=== PATIENT | female | born 2000 | race Caucasian/White ===

== ENCOUNTER 2020-07-22 07:58 | Outpatient (REF) | payer OTHER, SELFPAY ==
[2020-07-22 15:03] LABS: CT PCR NOT DETECTED (Not Detect.); NG PCR NOT DETECTED (Not Detect.)
[2020-07-23 15:33] LABS: BV Int Neg Control Negative (Negative); BV Int Pos Control Positive (Positive)
== END 2020-07-22 07:59 | disposition home or self-care (01) ==
LOC: HO.LAB 07:58
PROVIDERS: PCP Specialist; Visit Provider Obstetrics & Gynecology
DX: R10.2 Pelvic and perineal pain (principal); N94.12 Deep dyspareunia
CPT/HCPCS: 81025; 87480; 87491; 87510; 87591; 87660; 99203

== ENCOUNTER 2020-07-27 15:04 | Outpatient (REF) | payer OTHER, SELFPAY ==
--- NOTE | 2020-07-27 15:10 | US_ITS ---
EXAMINATION: US PELVIS COMPLETE CLINICAL INFORMATION: Dyspareunia; the last menstrual period was on 07/21/2020. COMPARISON: None. TECHNIQUE: Transabdominal and transvaginal imaging were performed. FINDINGS: The uterus is of normal size and echogenicity measuring 8.4 x 4.5 x 4.3 cm. The uterus is retroverted and retroflexed. A regular, homogeneous endometrium is identified measuring 1.0 cm. FIBROIDS: There is 1 fibroid seen. 1. Location: Upper leftward uterine body. Size: 1.7 x 1.6 x 1.7 cm. Fibroid characteristics: Isoechoic Both ovaries are of normal size and echogenicity. The right ovary measures 2.3 x 1.8 x 2.0 cm for a volume of 8.2 mL. The left ovary measures 2.5 x 1.2 x 1.5 cm for a volume of 2.4 mL. A 1.4 x 1.5 x 1.4 cm dominant simple cyst is seen within the right ovary. There is trace left adnexal free fluid. No adnexal masses seen. US/US pelvic complete IMPRESSION: 1. A small uterine fibroid is seen. 2. A 1.5 cm right ovarian simple cyst is seen. 3. There is trace free fluid in the left adnexal region.
--- NOTE | 2020-07-27 15:10 | US_ITS ---
EXAMINATION: US PELVIS COMPLETE CLINICAL INFORMATION: Dyspareunia; the last menstrual period was on 07/21/2020. COMPARISON: None. TECHNIQUE: Transabdominal and transvaginal imaging were performed. FINDINGS: The uterus is of normal size and echogenicity measuring 8.4 x 4.5 x 4.3 cm. The uterus is retroverted and retroflexed. A regular, homogeneous endometrium is identified measuring 1.0 cm. FIBROIDS: There is 1 fibroid seen. 1. Location: Upper leftward uterine body. Size: 1.7 x 1.6 x 1.7 cm. Fibroid characteristics: Isoechoic Both ovaries are of normal size and echogenicity. The right ovary measures 2.3 x 1.8 x 2.0 cm for a volume of 8.2 mL. The left ovary measures 2.5 x 1.2 x 1.5 cm for a volume of 2.4 mL. A 1.4 x 1.5 x 1.4 cm dominant simple cyst is seen within the right ovary. There is trace left adnexal free fluid. No adnexal masses seen. US/US transvaginal IMPRESSION: 1. A small uterine fibroid is seen. 2. A 1.5 cm right ovarian simple cyst is seen. 3. There is trace free fluid in the left adnexal region.
== END 2020-07-27 15:05 | disposition home or self-care (01) ==
LOC: HO.US 15:04
PROVIDERS: Visit Provider Obstetrics & Gynecology
DX: N94.12 Deep dyspareunia (principal)
CPT/HCPCS: 76830; 76856

== ENCOUNTER 2020-08-18 14:30 | Outpatient (REF) | payer OTHER, SELFPAY | END 2020-08-18 14:31 | disposition home or self-care (01) | LOC: HO.LAB 14:30 | PROVIDERS: PCP Specialist; Visit Provider Internal Medicine | DX: Z20.828 Contact with and (suspected) exposure to other viral communicable diseases (principal) | CPT/HCPCS: C9803; U0003 ==

== ENCOUNTER 2020-08-18 14:59 | Outpatient (REF) | payer OTHER, SELFPAY ==
[2020-08-18 16:14] LABS: Glucose Urine UA NEG (NEG); Leukocyte Esterase Urine NEG (NEG); Nitrite Urine NEG (NEG); PH 5.5 (5.0-8.0); Specific Gravity - Urine >= 1.030 (1.005-1.025); Urine Blood TRACE (NEG); Urine Ketones NEG (NEG); Urine Protein NEG (NEG-TRACE)
[2020-08-18 16:15] LABS: Appearance Urine CLEAR; Color Urine YELLOW
[2020-08-18 16:23] LABS: Bacteria Urine 1+ /LPF; RBC Urine 0-2 /HPF (0); Squamous Epithelial Cell Urine 1+ /LPF; WBC Urine 0 /HPF (0-4)
== END 2020-08-18 15:00 | disposition home or self-care (01) ==
LOC: HO.LAB 14:59
PROVIDERS: PCP Specialist; Visit Provider Obstetrics & Gynecology
DX: N94.12 Deep dyspareunia (principal)
CPT/HCPCS: 81001; 81003

== ENCOUNTER 2020-09-08 14:30 | Outpatient (REF) | payer OTHER, SELFPAY | END 2020-09-08 14:31 | disposition home or self-care (01) | LOC: HO.LAB 14:30 | PROVIDERS: PCP Specialist; Visit Provider Obstetrics & Gynecology | DX: R31.29 Other microscopic hematuria (principal); N93.0 Postcoital and contact bleeding | CPT/HCPCS: 81002; 87086; 88142; 99212 ==

== ENCOUNTER 2020-09-15 14:38 | Outpatient (REF) | payer OTHER, SELFPAY ==
[2020-09-16 09:42] LABS: BV Int Neg Control Negative (Negative); BV Int Pos Control Positive (Positive)
== END 2020-09-15 14:39 | disposition home or self-care (01) ==
LOC: HO.LAB 14:38
PROVIDERS: PCP Specialist; Visit Provider Obstetrics & Gynecology
DX: B37.3 Candidiasis of vulva and vagina (principal)
CPT/HCPCS: 87480; 87510; 87660; 99212

== ENCOUNTER → 2021-02-10 08:52 | Outpatient (BNVA) | payer OTHER, SELFPAY | PROVIDERS: PCP Specialist; Visit Provider Obstetrics & Gynecology | DX: N64.52 Nipple discharge (principal) | CPT/HCPCS: 99212 ==

== ENCOUNTER 2021-02-16 13:57 | Outpatient (REF) | payer OTHER, SELFPAY ==
--- NOTE | ~2021-02-16 | US_ITS ---
EXAMINATION: US DIAGNOSTIC ULTRASOUND BREAST, LEFT CLINICAL INFORMATION: 20-year-old female with one episode milky left nipple discharge, several drops with squeezing. Episode occurred 2-3 weeks ago with no recurrence. No discharge on right. No prior breast imaging. No known family history breast cancer. No palpable abnormality. COMPARISON: None. TECHNIQUE: Ultrasound left breast is targeted to the retroareolar and periareolar region. Grayscale imaging and color Doppler are performed without and with harmonics. FINDINGS: There is no focal suspicious finding. There is no cystic or solid mass, architectural abnormality, duct ectasia, or edema in the soft tissue planes. Results are discussed with the patient at time of visit. US/US breast LT limited IMPRESSION: Normal study. ASSESSMENT: BI-RADS 1: Negative RECOMMENDATION: Patient should be managed based on the clinical impression. If there is unilateral recurrence of nipple discharge, then further assessment with breast MRI without and with gadolinium contrast may be considered. If there is bilateral recurrence of nipple discharge, then endocrine evaluation should be considered.
== END 2021-02-16 13:58 | disposition home or self-care (01) ==
LOC: HO.MAMMO 13:57
PROVIDERS: Visit Provider Obstetrics & Gynecology
DX: N64.52 Nipple discharge (principal)
CPT/HCPCS: 76642

== ENCOUNTER 2021-02-25 08:58 | Emergency (ER) | payer OTHER, SELFPAY ==
--- NOTE | ~2021-02-25 | XR_ITS ---
EXAMINATION: XR CHEST CLINICAL INFORMATION: Cough. COMPARISON: None TECHNIQUE: Frontal view of the chest was obtained. FINDINGS: No significant abnormality is noted involving the heart, lungs, mediastinum, bony thorax or soft tissues. XR/XR chest 1V IMPRESSION: Unremarkable chest examination.
[2021-02-25 09:12] VITALS: BP 130/68; PULSE 89; RESP 16; TEMP 37.4; O2SAT 99; BMI 23.3
[2021-02-25 09:41] LABS: Strep A Nucleic Acid Negative (Negative)
[2021-02-25] MEDS: Acetaminophen 325 MG TABLET 650 MG PO (09:49)
[2021-02-25 10:11] LABS: Influenza A PCR NEGATIVE (Negative); Influenza B PCR NEGATIVE (Negative); Resp Syncy Virus RNA Qual PCR NEGATIVE (Negative); SARS COV2 PCR INHOUSE NEGATIVE (Negative)
--- NOTE | 2021-02-25 10:13 | ED_ITS ---
HPI - URI/Sore Throat General Chief Complaint: Upper Respiratory Symptoms Stated Complaint: FEVER SORE THROAT Time Seen by Provider: 02/25/21 09:10 Source: patient Mode of arrival: ambulatory History of Present Illness HPI Narrative: 20-year-old female with no significant past medical history presenting to the ED complaining of cough, sore throat, myalgias, headache x2 weeks. Admits tested negative for COVID-19 about 2 weeks ago. Also reports fever T-max a 100.4? x2 days. Denies difficulty/inability to swallow or handle secretions, SOB, CP, recent travel, sick contacts, COVID-19 exposure MD elicited complaint: fever, cough and sore throat Related Data Home Medications Medication Instructions Recorded Confirmed minocycline 100 mg capsule 100 mg PO BID 02/10/21 02/10/21 spironolactone 100 mg tablet 100 mg PO DAILY 02/10/21 02/10/21 triamcinolone acetonide 0.1 % 1 appl TOPICAL BID-TID 02/10/21 02/10/21 topical cream Previous Rx's Medication Instructions Recorded clotrimazole-betamethasone 1 1 appl TOPICAL BID 5 Days #45 g 09/15/20 %-0.05 % topical cream terconazole 0.8 % vaginal cream 1 appful VAGINAL BEDTIME 3 Days 09/15/20 #20 g benzonatate [Tessalon Perles] 100 mg PO TID PRN #14 cap 02/25/21 Allergies Allergy/AdvReac Type Severity Reaction Status Date / Time No Known Allergies Allergy Verified 02/10/21 09:16 Review of Systems Review of Systems: Constitutional: + Fever, No Chills ENT/Mouth: + Ear Pain, + Nasal Congestion, No Sinus Pain, No Hoarseness, + sore throat, No Rhinorrhea, No Swallowing Difficulty Cardiovascular: No Chest Pain, No SOB Respiratory: + Cough, + Sputum, No Wheezing Gastrointestinal: No Nausea, No Vomiting, No Diarrhea, No Constipation, No Abdominal pain Musculoskeletal: No joint pain, + Myalgias Skin: No Skin Lesions, No rash Neuro: No Weakness, No Numbness, No Paresthesias Yes all other systems are reviewed and are negative [facility] Past Medical History Attestation statement: The following information was validated with the patient. Medical History (Updated 02/25/21 @ 10:15 by KAMINI Gutiérrez) Acne Social History Social History Alcohol intake: never Advance Directives: No Advance Directives Information Provided: No Patient : No Sexual orientation: Straight/Heterosexual Gender identity: female Physical Exam Vital Signs: Vital Signs: Last Vital Signs Temp 99.4 F 02/25/21 09:12 Pulse 89 02/25/21 09:12 Resp 16 02/25/21 09:12 BP 130/68 02/25/21 09:12 Pulse Ox 99 02/25/21 09:12 Body Mass Index 23.3 Const: General: cooperative, healthy appearing, comfortable and no acute distress Orientation/consciousness: patient oriented x3 Limitations: no limitations HENMT: Other: Bilateral tonsils mildly erythematous and inflamed, no exudates Head: Yes normal to inspection Ears: hearing grossly normal bilaterally, e xternal ears normal and TM's normal bilaterally General nose exam: Normal external nose present and Normal nares present Face and sinus: Yes normal facial exam and Yes face symmetric Mouth: Normal oral and palatal mucosa present Throat: Yes posterior oropharynx normal, Yes uvula midline, No peritonsillar mass and No uvular edema Eyes: General: appearance normal, both eyes and all related structures EOM: EOMs intact bilaterally Neck: Neck: Yes normal visual inspection and Yes no lymphadenopathy Resp: Effort & Inspection: normal respiratory effort Auscultation: clear to auscultation bilaterally, no crackles, no rales and no wheezes Cardio: Rate: regular rate Heart sounds: S1 normal heart sound present and S2 normal heart sound present Skin: Rashes: no rashes Wounds: no wounds Neuro: General: patient oriented x3 Gait exam (Neuro): Normal gait present Extrem: General: Yes normal to inspection Course Course Course Narrative: XR chest 1V IMPRESSION: Unremarkable chest examination -rapid strep negative MDM - URI/Sore Throat MDM Narrative Medical decision making narrative: 20-year-old female with no significant past medical history presenting to the ED complaining of cough, sore throat, myalgias, headache x2 weeks. Also reports fever T-max a 100.4? x2 days. On exam low-grade temp 99.4?, NAD, lungs CTA, mild bilateral tonsillar erythema and swelling without exudates. Concern for viral syndrome/COVID-19. Exam not consistent with strep pharyngitis. Rule out pneumonia Plan: Rapid strep, COVID-19 testing, CXR Differential Diagnosis Differential diagnosis: Likely upper respiratory infection Medical Records Attestation: I reviewed the patient's medical records. Lab Data Attestation: I reviewed the patient's lab results. Labs: Lab Results 02/25/21 Range/Units 09:24 S. pyogenes GrpA AMY Negative (Negative) Discharge Plan Discharge Clinical Impression: Viral infection Patient Disposition: Home, Self-Care Instructions: Viral Syndrome (ED) Additional Instructions: Your chest x-ray and rapid strep were unremarkable. Based on your symptoms and history we have sent a COVID-19. Although your RESULT IS PENDING at this time. Tessalon Perles for cough, take as needed At this time you will be contacted with either NEGATIVE OR POSITIVE results. -Please wait until we contact you for your results. At this time you will be okay for discharge. Please plan for self quarantine for up to 14 days. Do not expose yourself to others. You may not go to work. If testing does come back negative you may return to activities as long as you are no longer having any symptoms for at least 3 days. Please continue to follow cold instructions and wash your hands frequently. You may take Tylenol as directed on the bottle for pain or fever. Patient seen in the emergency department on 03/26/2020 and should be excused from work until negative test results AND until 72 hours without any symptoms AND at least 10 days have passed since symptoms first appeared or since last exposure to COVID-19 positive patient CDC Guidelines for home isolation: - Stay away from others - WEAR A MASK if you are sick AND STAY HOME - Cover your mouth and nose with a tissue when you cough or sneeze. Dispose of tissues in a lined trash can and wash your hands immediately with soap and water for at least 20 seconds. If soap and water are not available, clean hands with alcohol-based hand technical programs manager that contains at least 60% alcohol. - Clean your hands often with soap and water for at least 20 seconds - Avoid touching your eyes, nose and mouth with unwashed hands - Do not share dishes, drinking glasses, cups, eating utensils, towels, or bedding with other people in your home. After using these items, wash them thoroughly with soap and water or put in the legal recruiter. - Clean high-touch surfaces in your isolation area ( sick room and bathroom) every day; let a caregiver clean and disinfect high-touch surfaces in other areas of the home. Clean the area or item with soap and water or another detergent if it is dirty. Then, use a household disinfectant. - Limit contact with pets and animals: If you must care for a pet, wash your hands before and after interacting with them) Prescriptions: New benzonatate [Tessalon Perles] 100 mg capsule 100 mg PO TID PRN (Reason: cough) Qty: 14 RF: 0 No Action terconazole 0.8 % cream 1 appful vaginal BEDTIME 3 Days Qty: 20 RF: 0 clotrimazole-betamethasone 1-0.05 % cream 1 appl topical BID 5 Days Qty: 45 RF: 0 minocycline 100 mg capsule 100 mg PO BID RF: 0 spironolactone 100 mg tablet 100 mg PO DAILY RF: 0 triamcinolone acetonide 0.1 % cream 1 appl topical BID-TID RF: 0 Referrals: Roslyn Moss MD [Primary Care Provider] - 3 days
== END 2021-02-25 10:39 | disposition home or self-care (01) ==
PROVIDERS: Physician Assistant; Emergency Provider Emergency Medicine; PCP Specialist
DX: B34.9 Viral infection, unspecified (principal); Z20.822 Contact with and (suspected) exposure to COVID-19; J02.9 Acute pharyngitis, unspecified; R50.9 Fever, unspecified
CPT/HCPCS: 0241U; 36415; 71045; 87651; 99283

== ENCOUNTER 2021-04-18 14:00 | Outpatient (REF) | payer OTHER, SELFPAY | END 2021-04-18 14:01 | disposition home or self-care (01) | LOC: HO.LAB 14:00 | PROVIDERS: PCP Specialist; Visit Provider Internal Medicine | DX: Z20.822 Contact with and (suspected) exposure to COVID-19 (principal) | CPT/HCPCS: C9803; U0003; U0005 ==

== ENCOUNTER 2021-05-01 12:32 | Emergency (ER) | payer OTHER, SELFPAY ==
--- NOTE | ~2021-05-01 | XR_ITS ---
EXAMINATION: XR CHEST CLINICAL INFORMATION: : Pneumonia. COMPARISON: None TECHNIQUE: Frontal view of the chest was obtained. FINDINGS: The lungs are fairly well-expanded and clear. Heart size and pulmonary vascularity is normal. No gross bony abnormality seen. XR/XR chest 1V IMPRESSION: Unremarkable chest exam.
[2021-05-01 13:00] VITALS: BP 125/77; PULSE 80; RESP 18; TEMP 36.3; O2SAT 99; BMI 23.1
--- NOTE | 2021-05-01 14:27 | ED.URI ---
HPI - URI/Sore Throat General Chief Complaint: Upper Respiratory Symptoms Stated Complaint: runny nose, sore throat, earache Time Seen by Provider: 05/01/21 14:20 Source: patient Mode of arrival: ambulatory Limitations: no limitations History of Present Illness HPI Narrative: Patient presents to ED for URI symptoms. Patient states coughing, chest pain only when she coughs, runny nose, bilateral ear pain, and sore throat. Patient states she recently travel from [place] and is not vaccinated. She denies anyone else at home having similar symptoms. Related Data Home Medications Medication Instructions Recorded Confirmed minocycline 100 mg capsule 100 mg PO BID 02/10/21 02/10/21 spironolactone 100 mg tablet 100 mg PO DAILY 02/10/21 02/10/21 triamcinolone acetonide 0.1 % 1 appl TOPICAL BID-TID 02/10/21 02/10/21 topical cream Previous Rx's Medication Instructions Recorded clotrimazole-betamethasone 1 1 appl TOPICAL BID 5 Days #45 g 09/15/20 %-0.05 % topical cream terconazole 0.8 % vaginal cream 1 appful VAGINAL BEDTIME 3 Days 09/15/20 #20 g benzonatate 100 mg capsule 100 mg PO TID PRN #14 cap 02/25/21 (Tessalon Perles) benzonatate 100 mg capsule 100 mg PO TID PRN #15 cap 05/01/21 (Tessalon Perles) Allergies Allergy/AdvReac Type Severity Reaction Status Date / Time No Known Allergies Allergy Verified 02/10/21 09:16 Review of Systems Review of Systems: Yes all other systems are reviewed and are negative and unobtainable due to endotracheal tube Constitutional: Constitutional: Reports as per HPI and Reports no additional constitutional complaints Eyes: Eyes: Reports as per HPI and Reports no additional eye complaints ENT: Reports system reviewed and no additional complaints, except as documented, Reports as per HPI, Reports otalgia and Reports sore throat Cardiovascular: Cardiovascular: Reports as per HPI, Reports no additional cardiovascular complaints, Denies chest pain at rest, Denies chest pain with activity and Denies dyspnea Respiratory: Respiratory: Reports as per HPI, Reports no additional respiratory complaints, Reports cough, Denies excessive phlegm production, Denies pain on inspiration, Reports pain with cough, Denies dyspnea and Denies wheezing Gastrointestinal: Gastrointestinal: Reports as per HPI and Reports no additional gastrointestinal complaints Genitourinary: Genitourinary: Reports no additional female genitourinary complaints and Reports as per HPI Musculoskeletal: Musculoskeletal: Reports no additional musculoskeletal complaints and Reports as per HPI Neurologic: Reports system reviewed and no additional complaints, except as documented and Reports as per HPI Psychiatric: Psychiatric: Reports no additional psychiatric complaints and Reports as per HPI Allergic/Immunologic: Allergic/Immunologic: Denies wheezing [facility] Past Medical History Medical History (Updated 05/01/21 @ 16:12 by KAMINI Haile) Acne Social History Social History Alcohol intake: never Advance Directives: No Advance Directives Information Provided: Yes Sexual orientation: Straight/Heterosexual Gender identity: female Physical Exam Vital Signs: Vital Signs: Last Vital Signs Temp 98.5 F 05/01/21 16:23 Pulse 56 05/01/21 16:23 Resp 16 05/01/21 16:23 BP 120/75 05/01/21 16:23 Pulse Ox 99 05/01/21 16:23 Body Mass Index 23.1 Const: General: cooperative, healthy appearing, comfortable, no acute distress, well developed, alert, awake and Physically active Orientation/consciousness: patient oriented x3 HENMT: Head: Yes normal to inspection, Yes No palpable skull fracture present, Yes normocephalic and Yes atraumatic Ears: hearing grossly normal bilaterally, external ears normal, TM's normal bilaterally, TM normal on the right, TM normal on the left, EAC's normal, mastoids normal and no periauricular adenopathy Throat: Yes posterior oropharynx normal, Yes tonsils normal and Yes uvula midline Eyes: General: appearance normal, both eyes and all related structures Neck: Neck: Yes normal visual inspection, Yes full ROM, Yes no lymphadenopathy, Yes no meningeal signs, Yes trachea midline, Yes supple and No tender Chest: Chest palpation & inspection: normal inspection of the chest and normal palpation of entire chest wall Resp: Effort & Inspection: normal respiratory effort and able to speak in complete sentences Auscultation: clear to auscultation bilaterally Cardio: Jugular venous distension: no JVD Heart sounds: S1 normal heart sound present and S2 normal heart sound present Skin: General skin exam: no rashes or lesions noted and elasticity normal Neuro: General: patient oriented x3, gait normal, no meningeal signs and CN's II-XI intact bilaterally Cranial nerves: Yes CN's II-XII intact bilaterally Extrem: Other: Lower extremities negative for swelling, pitting edema, or, calf tenderness Psych: Appearance: grossly normal, well kempt and not disheveled Course Course Course Narrative: Patient will be swabbed for COVID have a chest x-ray ordered Reevaluation(s) Reevaluation #1: Strep test came back negative. Chest x-ray normal. Still waiting for COVID results. Patient preferred to be discharged and be called with COVID results Time: 16:10 Reevaluation #2: Patient COVID swab came back negative. Patient's cell phone number was called and could not be reached voicemail was left with results to her personal cell phone. Time: 17:06 MDM - URI/Sore Throat Lab Data Labs: Lab Results 05/01/21 05/01/21 Range/Units 14:32 14:32 Coronavirus (PCR) NEGATIVE (Negative) Influenza Type A (PCR) NEGATIVE (Negative) Influenza Type B (PCR) NEGATIVE (Negative) RSV RNA Qual (PCR) NEGATIVE (Negative) S. pyogenes GrpA AMY Negative (Negative) Discharge Plan Discharge Clinical Impression: Acute viral syndrome, Upper respiratory infection Patient Disposition: Home, Self-Care Instructions: Upper Respiratory Infection (ED), Viral Syndrome (ED) Additional Instructions: Strep test came back negative. Chest x-ray came back normal. COVID results still pending. You will be called with results. Return to the ED immediately for any chest pain, shortness of breath, dizziness, weakness, coughing up blood, swelling of lower extremities, or any other concerning symptoms. Please follow up with PCP. Prescriptions: New benzonatate [Tessalon Perles] 100 mg capsule 100 mg PO TID PRN (Reason: cough) Qty: 15 RF: 0 No Action benzonatate [Tessalon Perles] 100 mg capsule 100 mg PO TID PRN (Reason: cough) Qty: 14 RF: 0 terconazole 0.8 % cream 1 appful vaginal BEDTIME 3 Days Qty: 20 RF: 0 clotrimazole-betamethasone 1-0.05 % cream 1 appl topical BID 5 Days Qty: 45 RF: 0 minocycline 100 mg capsule 100 mg PO BID RF: 0 spironolactone 100 mg tablet 100 mg PO DAILY RF: 0 triamcinolone acetonide 0.1 % cream 1 appl topical BID-TID RF: 0 Stand Alone Forms: Work/School Release Interventions: ED Discharge Assessment Last Done: 05/01/21 16:33 Discharge Date/Time: 05/01/21 16:34 Print Language: Vietnamese
[2021-05-01 14:54] LABS: Strep A Nucleic Acid Negative (Negative)
[2021-05-01 15:41] LABS: Influenza A PCR NEGATIVE (Negative); Influenza B PCR NEGATIVE (Negative); Resp Syncy Virus RNA Qual PCR NEGATIVE (Negative); SARS COV2 PCR INHOUSE NEGATIVE (Negative)
[2021-05-01 16:23] VITALS: BP 120/75; PULSE 56; RESP 16; TEMP 36.9; O2SAT 99
== END 2021-05-01 16:34 | disposition home or self-care (01) ==
PROVIDERS: Physician Assistant; Emergency Provider Internal Medicine; PCP Specialist
DX: B34.9 Viral infection, unspecified (principal); J06.9 Acute upper respiratory infection, unspecified; R05 Cough; R07.9 Chest pain, unspecified; H92.03 Otalgia, bilateral; Z20.822 Contact with and (suspected) exposure to COVID-19; Z79.899 Other long term (current) drug therapy
CPT/HCPCS: 0241U; 36415; 71045; 87651; 99284

== ENCOUNTER 2022-07-11 09:37 | Emergency (ER) | payer OTHER, SELFPAY ==
[2022-07-11 09:46] VITALS: BP 138/74; PULSE 99; RESP 18; O2SAT 97; BMI 24.0
--- OUTSIDE RECORDS SUMMARY | 2022-07-11 14:11 | XMS_ITS | Continuity of Care Document ---
:2000 Author Organization [facility] Address [address] [place] [id number]- Care Team Providers Name Role Phone Roslyn Moss MD Primary Care Physician Encounter [facility] [place] Date(s): 02/26/21 - 02/26/[address] [address]- Encounter Diagnosis Suppurative parotitis (Final) - 02/26/21 Discharge Disposition: A-D/C Home Attending Physician: Torin Nelson MD Admitting Physician: Torin Nelson MD Referring Physician: Not on Staff, Referring MD Allergies, Adverse Reactions, Alerts No Known Medication Allergies Medications clindamycin 150 mg oral capsule 3 capsule = 450 mg, By Mouth, Every 8 hours, for 10 days, # 90 capsule, 0 Refills, Acute 03/08/21 16:10:00 EDT, 02/26/21 16:10:00 EDT, [id number], Partial fill upon patient request if the prescription is for a schedule II opi... Start Date: 02/26/21 Stop Date: 03/08/21 Status: OrderedMinocycline 0 Refills, Maintenance, 02/26/21 12:07:00 EDT, Partial fill upon patient request if the prescriptionis for a schedule II opioid drug. Start Date: 02/26/21 Status: OrderedSpironolactone Tablet By Mouth, Refills 0, Maintenance, 02/26/21 12:06:00 EDT, Partial fill upon patient request if the prescription is for a schedule II opioid drug. Start Date: 02/26/21 Status: Ordered Results Orders for Microbiology Reports Name Date Group A Strep Screen and Culture 02/26/21 Microbiology Reports TEST:Group A Strep Screen and Culture STATUS:Unauthenticated BODY SITE: SOURCE:THROAT COLLECTED DATE/TIME:02/26/21 1:30 PMGroup A Strep Screen and Culture SPECIMEN DESCRIPTION : THROAT SWAB SPECIAL REQUESTS : NONE DIRECT EXAM : RAPID GROUP A RESULT IS NEGATIVE, REFER TO CULTURE RESULT. REPORT STATUS : PRELIMINARY REPORT Vital Signs Most recent to oldest 1 2 3 [Reference Range]: Height 166 cm 166 cm (02/26/21 4:19 PM) (02/26/21 12:02 PM) Oxygen Saturation [94-100 %] 100 % 100 % 100 % (02/26/21 4:19 PM) (02/26/21 12:02 PM) (02/26/21 12 :00 PM) Pulse Rate [55-90 bpm] 74 bpm 102 bpm 112 bpm (02/26/21 4:19 PM) *H* *H* (02/26/21 12:02 PM) (02/26/21 12:0 0 PM) Blood Pressure [90-138/55-84 114/59 mm Hg 122/74 mm Hg mm Hg] (02/26/21 4:19 PM) (02/26/21 12:02 PM) Respiratory Rate [16-30 16 br/min 20 br/min br/min] (02/26/21 4:19 PM) (02/26/21 12:02 PM) Temperature [96.8-100.4 97.9 DegF 99.7 DegF DegF] (02/26/21 4:19 PM) (02/26/21 12:02 PM) Mode of Delivery (Oxygen) Room air Room air Room a ir (02/26/21 4:19 PM) (02/26/21 12:02 PM) (02/26/21 12 :00 PM) Blood pressure sites Arm, left (02/26/21 12:02 PM) Temperature Route Oral Oral (02/26/21 4:19 PM) (02/26/21 12:02 PM)
--- OUTSIDE RECORDS SUMMARY | 2022-07-11 14:11 | XMS_ITS | Continuity of Care Document ---
:2000 Author Organization [facility] Address [address] [place] [address]- Care Team Providers Name Role Phone Isa QURESHI, Roslyn Singh Primary Care Physician Encounter [facility] Date(s): 12/27/19 - 01/06/20 [facility] [address] [place] [address]- [facility] Attending Physician: Susan Dunn Admitting Physician: Susan Dunn Referring Physician: Admtr, Ar8 Allergies, Adverse Reactions, Alerts No Known Medication Allergies
--- OUTSIDE RECORDS SUMMARY | 2022-07-11 14:11 | XMS_ITS | Continuity of Care Document ---
:2000 Author Organization [facility] Address [address] [place] [address]- Care Team Providers Name Role Phone Roslyn Moss MD Primary Care Physician Encounter [facility] [place] Date(s): 12/27/19 - 01/03/20 [facility] [address] [place] [address]- [facility] Attending Physician: Zoraida Patel MD Referring Physician: Roslyn Moss MD Allergies, Adverse Reactions, Alerts No Known Medication Allergies Medications amoxicillin 500 mg oral capsule 1 capsule = 500 mg, By Mouth, 2 times a day, for 10 days, for strep throat, # 20 capsule, 0 Refills,Acute 01/06/20 10:18:00 EDT, 12/27/19 10:18:00 EDT, Capsule, [id number], 162.56, cm, 12/27/19 9:59:00 EDT, Height, 68.3, kg, 12/27/19... Start Date: 12/27/19 Stop Date: 01/06/20 Status: Ordered Vital Signs Most recent to oldest [Reference Range]: 1 Height 162.56 cm (12/27/19 9:59 AM) Weight 68.3 kg (12/27/19 9:59 AM) Oxygen Saturation [94-100 %] 99 % (12/27/19 9:59 AM) Pulse Rate [55-90 bpm] 82 bpm (12/27/19 9:59 AM) Body Mass Index [18.5-24.99] 25.85 *H* (12/27/19 9:59 AM) Blood Pressure [90-138/55-84 mm Hg] 123/70 mm Hg (12/27/19 9:59 AM) Respiratory Rate [16-30 br/min] 18 br/min (12/27/19 9:59 AM) Temperature [96.8-100.4 DegF] 98.2 DegF (12/27/19 9:59 AM) Mode of Delivery (Oxygen) Room air (12/27/19 9:59 AM) Blood pressure sites Arm, left (12/27/19 9:59 AM) Temperature Route Oral (12/27/19 9:59 AM) Dry Weight 68.3 kg (12/27/19 9:59 AM) Weight Obtained Via Standing scale (12/27/19 9:59 AM) Dry Weight Obtained Via Standing scale (12/27/19 9:59 AM)
--- OUTSIDE RECORDS SUMMARY | 2022-07-11 14:11 | XMS_ITS | Continuity of Care Document ---
:2000 Author Organization [facility] Address [address] [place] [id number]- Care Team Providers Name Role Phone Roslyn Moss MD Primary Care Physician Encounter [facility] Date(s): 10/13/19 - 10/20/[address] [address]- [facility] Attending Physician: Roslyn Moss MD Allergies, Adverse Reactions, Alerts No Known Medication Allergies
== END 2022-07-11 14:49 | disposition left against medical advice (07) ==
PROVIDERS: Emergency Provider Emergency Medicine
DX: R05.9 Cough, unspecified (principal)
CPT/HCPCS: 99281

== ENCOUNTER 2022-12-17 07:28 | Emergency (ER) | payer OTHER, SELFPAY ==
--- NOTE | ~2022-12-17 | XR_ITS ---
EXAMINATION: XR WRIST AND HAND, RIGHT para CLINICAL INFORMATION: Swelling and pain COMPARISON: None available. TECHNIQUE: 4 views of the right wrist and hand including scaphoid view. FINDINGS: RIGHT WRIST AND HAND: There is a transverse fracture at the base of the third metacarpal. Suspect similar transverse fracture at the base of the fourth metacarpal. Suspect slightly displaced fracture at the base of the second metacarpal. The carpometacarpal joints are preserved. The carpal bones including the scaphoid are intact. XR/XR hand wrist RT IMPRESSION: 1. Fracture of the base of the third metacarpal. 2. Suspect associated fractures at the base of the second and fourth metacarpals.
[2022-12-17 07:37] VITALS: BP 133/84; PULSE 84; RESP 16; TEMP 36.6; O2SAT 98
[2022-12-17 07:50] VITALS: BP 142/88; PULSE 88; RESP 22; TEMP 37; O2SAT 98
[2022-12-17] MEDS: Ibuprofen 600 MG TABLET PO (07:58)
--- NOTE | 2022-12-17 08:00 | ED.EXTPRO ---
HPI - Extremity Problem General Chief complaint: Extremity Injury, Upper Stated complaint: R wrist inj 12/16/22 Time Seen by Provider: 12/17/22 07:50 Source: patient and family Mode of arrival: ambulatory Limitations: no limitations History of Present Illness HPI Narrative: 22-year-old female came in for evaluation of left hand/wrist pain. Patient was drinking alcohol last night woke up this morning with a severe pain in the left hand and wrist, patient do not recall having a fight or trauma to the right hand right wrist. Patient is a left-handed. No headache, no neck pain, no CP, no SOB, no abdominal pain, no other extremities pain. Related Data Home Medications Medication Instructions Recorded Confirmed minocycline 100 mg capsule 100 mg PO BID 02/10/21 02/10/21 spironolactone 100 mg tablet 100 mg PO DAILY 02/10/21 02/10/21 triamcinolone acetonide 0.1 % 1 appl topical BID-TID 02/10/21 02/10/21 topical cream Previous Rx's Medication Instructions Recorded clotrimazole-betamethasone 1 1 appl topical BID 5 days #45 grams 09/15/20 %-0.05 % topical cream terconazole 0.8 % vaginal cream 1 appful vaginal BEDTIME 3 days 09/15/20 #20 grams benzonatate 100 mg capsule 100 mg PO TID PRN cough #14 caps 02/25/21 (Tessalon Perles) benzonatate 100 mg capsule 100 mg PO TID PRN cough #15 caps 05/01/21 (Tessalon Perles) Allergies Allergy/AdvReac Type Severity Reaction Status Date / Time No Known Allergies Allergy Verified 02/10/21 09:16 Review of Systems Review of Systems: All other systems are reviewed and are negative Constitutional: Reports as per HPI and Reports no additional constitutional complaints Eyes: Reports as per HPI and Reports no additional eye complaints Reports system reviewed and no additional complaints, except as documented Cardiovascular: Reports as per HPI and Reports no additional cardiovascular complaints Respiratory: Reports as per HPI and Reports no additional respiratory complaints Gastrointestinal: Reports as per HPI and Reports no additional gastrointestinal complaints Genitourinary: Reports no additional female genitourinary complaints Musculoskeletal: Reports no additional musculoskeletal complaints Skin/Breast: Reports system reviewed and no additional complaints, except as docu Psychiatric: Reports no additional psychiatric complaints Endocrine: Reports no additional endocrine complaints Hematologic/Lymphatic: Reports no additional hematologic/lymphatic complaints Allergic/Immunologic: Reports no additional allergic/immunologic complaints Reports system reviewed and no additional complaints, except as documented and Reports Abnormal speech present [facility] Past Medical History Medical History Acne Social History Social History Alcohol intake: current Smoked in Last 30 Days: No Substance Use Type: Marijuana Substance Use Frequency: Daily Advance Directives: No Advance Directives Information Provided: No Sexual orientation: Straight/Heterosexual Gender identity: Female Physical Exam Vital Signs: Vital Signs: Last Vital Signs Temp 98.6 F 12/17/22 07:50 Pulse 88 12/17/22 07:50 Resp 22 H 12/17/22 07:50 BP 142/88 H 12/17/22 07:50 Pulse Ox 98 12/17/22 07:50 O2 Del Method 12/17/22 07:50 BMI result Body Mass Index 30.0 Vital signs have been reviewed as appeared to be correct. Blood pressure normal. Heart rate normal. Respiration rate normal. Temperature normal. Oxygen saturation normal. Appearance: Alert. Oriented X3. No acute distress. Head: Normal external exam. Normocephalic. Atraumatic. No Rosario signs noted. No raccoon eyes noted Eyes: PERRLA. EOMI. Conjunctiva and sclera normal. Eyelids normal. ENT: TM's Normal. Pharynx normal. Uvula midline. Moist mucous membranes. No trismus noted. No drooling noted. No muffled voice noted. Neck: Normal inspection. Neck supple. FROM. No adenopathy. Thyroid Normal. No meningeal signs. No neck mass noted. CVS: Normal heart rate and rhythm. Heart sound normal. No murmurs noted. Pulses normal throughout. Respiratory: No respiratory distress. Painless inspiration. Breath sounds normal. No wheezes/rales/rhonchi noted. Chest nontender. No accessory muscle usage noted or decreased air movement noted. Abdomen: Soft and nontender. Bowel sounds normal in all 4 quadrants. No distention noted. No organomegaly noted. No visible injury noted. Back: No CVA tenderness. Full range of motion noted. Skin: Skin warm and dry. Normal skin color. Normal skin turgor. No rashes/lesions/lacerations noted. Extremities: Left hand/wrist exam: Tender to touch on the dorsum of the left hand, no step-off, no deformity plan. Neuro: Oriented X 3. Cranial nerve exam: II-XII are grossly intact No motor deficit. No sensory deficit. Reflexes normal. Course Course Course Narrative: Right metacarpal closed fracture, will splint, ibuprofen, ice, follow-up with hand surgery. Medications Administered Discontinued Medications Generic Name Dose Route Start Last Admin Trade Name Freq PRN Reason Stop Dose Admin Ibuprofen 600 mg 12/17/22 07:55 12/17/22 07:58 Ibuprofen 600 Mg Tablet PO 12/17/22 07:56 600 mg ONCE ONE Administration Medical Decision Making Differential Diagnosis Differential Diagnoses: The differential diagnosis associated with the presentation includes (Right hand fracture, right hand contusion, right hand injury.) Independent Interpretation I performed an independent interpretation of an: Plain X-Ray (Right hand/wrist. Right 3rd metacarpal bone fracture.) Radiology Impression Discussion of test interpretation with radiology: I have reviewed the radiologist's reading. Discharge Plan Discharge Clinical Impression: Fracture of metacarpal, Hand fracture, right Patient Disposition: Home, Self-Care Instructions: Hand Fracture (ED) Additional Instructions: Take ibuprofen 200 mg tablet ([id number]) every 6 hours if needed for pain. Prescriptions: No Action benzonatate [Tessalon Perles] 100 mg capsule 100 mg PO TID PRN (Reason: cough) Qty: 14 0RF benzonatate [Tessalon Perles] 100 mg capsule 100 mg PO TID PRN (Reason: cough) Qty: 15 0RF terconazole 0.8 % cream 1 appful vaginal BEDTIME 3 Days Qty: 20 0RF clotrimazole-betamethasone 1-0.05 % cream 1 appl topical BID 5 Days Qty: 45 0RF minocycline 100 mg capsule 100 mg PO BID spironolactone 100 mg tablet 100 mg PO DAILY triamcinolone acetonide 0.1 % cream 1 appl topical BID-TID Referrals: Farhad Miller MD [Physician] - Stand Alone Forms: Work/School Release
== END 2022-12-17 09:29 | disposition home or self-care (01) ==
PROVIDERS: Emergency Provider Emergency Medicine
DX: S62.602A Fracture of unspecified phalanx of right middle finger, initial encounter for closed fracture (principal); Y04.2XXA Assault by strike against or bumped into by another person, initial encounter; Y93.9 Activity, unspecified; Y92.9 Unspecified place or not applicable; Y99.9 Unspecified external cause status; Z79.899 Other long term (current) drug therapy
CPT/HCPCS: 29130; 73110; 73130; 99284

== ENCOUNTER → 2022-12-22 13:15 | Outpatient (BNVA) | payer OTHER, SELFPAY | PROVIDERS: Visit Provider Physician Assistant | DX: S62.312A Displaced fracture of base of third metacarpal bone, right hand, initial encounter for closed fracture (principal) | CPT/HCPCS: 99202 ==

== ENCOUNTER 2023-01-24 09:06 | Outpatient (REF) | payer OTHER, SELFPAY | END 2023-01-24 09:07 | disposition home or self-care (01) | LOC: HO.HOSX 09:06 | PROVIDERS: Visit Provider Physician Assistant | DX: Z13.89 Encounter for screening for other disorder (principal) ==

== ENCOUNTER 2024-07-22 14:53 | Outpatient (REF) | payer OTHER, SELFPAY ==
[2024-07-22 16:03] LABS: MANUAL DIFF FLAG NO
[2024-07-22 16:58] LABS: Basophils Absolute Auto 0.1 X10*3/uL (0.0-0.2); Basophils Percent Auto 0.6 % (0-2); Eosinophils Absolute Auto 0.2 X10*3/uL (0.0-0.4); Eosinophils Percent Auto 1.9 % (0-4); Hematocrit 41.6 % (37.0-47.0); Hemoglobin 14.3 g/dl (12.0-16.0); Imm Gran Abs Auto 0.04 X10*3/uL (0.00-0.03); Imm Gran Pct Auto 0.4 % (0.0-0.4); Lymphocytes Absolute Auto 1.6 X10*3/uL (1.2-4.9); Lymphocytes Percent Auto 17.5 % (20-40); Mean Corpuscular HGB Conc 34.4 g/dl (31.0-35.0); Mean Corpuscular Hemoglobin 31.2 pg (27.0-33.0); Mean Corpuscular Volume 90.8 fL (80.0-98.0); Mean Platelet Volume 9.2 fL (9.4-12.3); Monocytes Absolute Auto 0.5 X10*3/uL (0.1-1.2); Monocytes Percent Auto 5.3 % (2-11); Neutrophils Absolute Auto 6.8 x10*3/uL (2.0-8.3); Neutrophils Percent Auto 74.3 % (45-73); Platelet Count 369 X10*3/uL (160-400); Red Blood Count 4.58 X10*6/uL (4.20-5.50); White Blood Count 9.1 X10*3/uL (4.8-10.8)
[2024-07-22 17:33] LABS: Alanine Aminotransferase 11 U/L (0-31); Albumin Level 4.3 g/dL (3.5-5.0); Alkaline Phosphatase 65 U/L (39-117); Anion Gap 12 (12-20); Aspartate Amino Transferase 18 U/L (5-31); Bilirubin Total 0.3 mg/dL (0.0-1.0); Blood Urea Nitrogen 9 mg/dL (9-16); Calcium 9.5 mg/dL (8.4-10.2); Carbon Dioxide 26 mmol/L (22-29); Chloride 106 mmol/L (96-108); Estimated Glomerular Filt Rate > 60; Glucose Random 86 mg/dL (60-115); Potassium 3.6 mmol/L (3.3-5.1); Sodium 140 mmol/L (135-145); Total Protein 7.4 g/dL (6.5-8.0)
[2024-07-22 17:40] LABS: Free T4 (Free Thyroxine) 1.09 ng/dL (0.71-1.85); TSH reflex Free T4 1.37 uIU/mL (0.32-4.0)
[2024-07-22 17:52] LABS: Folate 7.9 ng/mL (> or = 4.0); Vitamin B12 394 pg/mL (200-900)
[2024-07-23 10:26] LABS: HBS Num1 0.52 mIU/mL (0-7.99); HBsAGNum1 0.37 S/CO (0.00-0.99); HIV AB/AG Nonreactive (Nonreactive); HIV Num 1 0.06 S/CO (0.00-0.99); Hepatitis B Core Antibody Nonreactive (Nonreactive); Hepatitis B Surface Antigen Negative (Negative); ~HepC Num1 0.11 S/CO (0.00-0.79); ~Hepatitis B Surface Antibody NONREACTIVE (Nonreactive); ~Hepatitis C Antibody Nonreactive (Nonreactive)
[2024-07-23 12:17] LABS: CT PCR NOT DETECTED (Not Detect.); NG PCR NOT DETECTED (Not Detect.)
[2024-07-24 06:08] LABS: Prolactin 17.3 ng/mL
[2024-07-27 16:53] LABS: Vitamin D 25-OH, D2 <4 ng/mL; Vitamin D 25-OH, D3 10 ng/mL; Vitamin D 25-OH, Total 10 ng/mL (30-100)
== END 2024-07-22 14:54 | disposition home or self-care (01) ==
LOC: HO.LAB 14:53
DX: Z00.00 Encounter for general adult medical examination without abnormal findings (principal); N64.52 Nipple discharge; L29.9 Pruritus, unspecified; Z11.3 Encounter for screening for infections with a predominantly sexual mode of transmission; Z12.4 Encounter for screening for malignant neoplasm of cervix
CPT/HCPCS: 80053; 82306; 82607; 82746; 84146; 84439; 84443; 85025; 86704; 86706; 86803; 87340; 87389; 87491; 87591; 96127; 99385

== ENCOUNTER 2024-07-22 14:53 | Outpatient (AMB) | payer OTHER, SELFPAY ==
[2024-07-22 14:54] VITALS: BP 100/60; PULSE 63; O2SAT 98; BMI 29.2
--- NOTE | 2024-07-22 14:54 | MHC.PC.OV ---
Vital Signs 07/22/24 14:54 Height 5 ft 4 in Weight 170 lb BMI 29.2 BP 100/60 Blood Pressure Location Lt brachial Position Sitting Pulse 63 Pulse Source Pulse Oximeter Pulse Oximetry (%) 98 Oxygen Delivery Method Room Air Intake Visit Reasons: annual exam/ establish care Banking Services Advisor Required: No Allergies No Known Allergies Allergy (Verified 07/22/24 15:11) Medication List - Last Reconciled 07/22/24 by Anita Kingston PA-C ciprofloxacin-dexamethasone 0.3-0.1 % 0 drps otic (ears) Tobacco use date assessed: 07/22/24 Dental Screening Dental Screen Date: 07/22/24 Did you have a dental visit in the last 12 months?: Yes Did you have a dental problem in the last 6 months where you did not have access to dental care?: No Was dental information given to patient?: Patient has dentist HPI annual exam/ establish care HPI Details 24-year-old female coming to the office for the 1st time. Patient was previously seeing Dr. Preston for Pap smears but has not seen him in several years. She was also being seen for left-sided nipple discharge and had no follow up after her initial ultrasound was negative. She has not had this complaint in over a year. She also mentioned having itchiness on the outside of the ears and occasional pain. [facility] Medical History Acne Social History Alcohol intake: current Patient Tobacco Use Status: Never used Tobacco e-Cigarette/Vaping Use: Currently Using Substance Use Type: Marijuana service: No Current occupational status: employed Current occupation: left hand Sexual orientation: Straight/Heterosexual Gender identity: Female Cognitive needs: No Hearing needs: No Vision needs: No Female Reproductive History Menstrual Age of Menarche: 12 control method: none Total pregnancies: 0 History of abnormal pap smear: No Questionnaire PHQ-9 Over the last 2 weeks, how often have you been bothered by any of the following problems? 1. Little interest or pleasure in doing things: not at all 2. Feeling down, depressed, or hopeless: not at all 3. Trouble falling or staying asleep, or sleeping too much: not at all 4. Feeling tired or having little energy: not at all 5. Poor appetite or overeating: not at all 6. Feeling bad about yourself - or that you are a failure or have let yourself or your family down: not at all 7. Trouble concentrating on things, such as reading the newspaper or watching television: not at all 8. Moving or speaking so slowly that other people could have noticed. Or the opposite - being so fidgety or restless that you have been moving around a lot more than usual: not at all 9. Thoughts that you would be better off or of hurting yourself in some way: not at all Total score: 0 Depression Screening Interpretation: Negative Depression Screening Done: Yes 09861 - PHQ-9 Billing: Yes Source: Developed by Drs. Sohail Cunningham, Jennie Armendariz, Juice Blanco and colleagues, with an educational gopal from [employer]. Thrive Questionnaire Date Thrive assessed: 07/22/24 I am a: Patient What is your living situation today?: I have a steady place to live Within the past 12 months, did the food you bought not last and you didn't have the money to get more?: I choose not to answer this question Within the past 12 months, did you worry whether your food would run out before you got money to buy more?: I choose not to answer this question Do you have trouble paying for medicines?: No Do you have trouble getting transportation to medical appointments?: No Do you have trouble paying your heating and electricity bill?: I choose not to answer this question Do you have trouble taking care of your child, family member or friend?: No Do you have trouble with day-to-day activities such as bathing, preparing meals, shopping, managing finances, etc.?: No Are you currently unemployed and looking for a job?: No Are you interested in more education?: No Please select the resources that you would like help with: None Currently or been in a relationship where the following occur: No concerns reported THRIVE Score: 0 AUDIT C Alcohol Use Questionnaire (AUDIT-C) 1. How often do you have a drink containing alcohol?: Never 3. How often do you have six or more drinks on one occasion?: Never Total Score: 0 MICHELLE-7 AMB Questionnaire MICHELLE-7 Date MICHELLE - 7 assessed: 07/22/24 Feeling nervous, anxious, or on edge: 0 = Not at all Not being able to stop or control worryin = Not at all Worrying too much about different things: 0 = Not at all Trouble relaxin = Not at all Being so restless that it is hard to sit still: 0 = Not at all Becoming easily annoyed or irritable: 0 = Not at all Feeling afraid as if something awful might happen: 0 = Not at all Total MICHELLE-7 score (0-4 normal; 5-9 mild; 10-14 moderate; 15-21 severe): 0 Source: Developed by Drs. Sohail Cunningham, Jennie Armendariz, Juice Blanco and colleagues, with an educational gopal from [employer]. MICHELLE-7 Assessment Billing MICHELLE-7 Assessment Tool: MICHELLE-7 Assessment 37649 Review of Systems Const Denies body aches, Denies fatigue, Denies fever(s), Denies frequent falls, Denies headache(s) and Denies weakness Eyes Reports no additional complaints and Denies change in vision ENT Details: Itchy ears Denies dysphagia, Denies dizziness, Denies facial pain, Denies headache(s), Denies nasal congestion and Denies odynophagia Card Denies chest pain, Denies syncope, Denies irregular heart rhythm, Denies leg edema, Denies lightheadedness and Denies dyspnea Resp Denies cough and Denies dyspnea GI Denies constipation, Denies dysphagia, Denies dyspepsia, Denies diarrhea, Denies nausea, Denies odynophagia and Denies vomiting Denies urinary frequency, Denies dysuria, Denies urinary hesitancy and Denies urinary urgency Musc Denies back pain and Denies myalgias Skin/Breast Reports system reviewed and no additional complaints, except as documented Neuro Denies dizziness, Denies syncope, Denies frequent falls, Denies headache(s) and Denies weakness Psych Reports no additional complaints Endo Denies fatigue Physical exam (Primary Care) Vital Signs: Last Vital Signs Pulse 63 07/22/24 14:54 BP 100/60 07/22/24 14:54 Pulse Ox 98 07/22/24 14:54 Oxygen Delivery Method Room Air 07/22/24 14:54 BMI result Body Mass Index 29.2 BMI Assessment/Plan discussion: High BMI High, discussed plan: lifestyle, dietary and physical activity Tobacco/Smoking Status: Tobacco use Status Tobacco use date assessed 07/22/24 07/22/24 14:55 Patient Tobacco Use Status Never used Tobacco 07/22/24 14:55 e-Cigarette/Vaping Use Currently Using 07/22/24 15:01 PHQ-9: PHQ-9 Score PHQ-9: Total score 0 07/22/24 16:12 Depression Screening Interpretation: Negative Thrive Assessment: Date of Thrive Assessment Date Thrive assessed 07/22/24 07/22/24 14:55 Currently or been in a relationship where the following occur: No concerns reported Const General: cooperative, healthy appearing, comfortable and no acute distress Orientation/consciousness: patient oriented x3 HENMT Other: Dry flaky skin in bilateral ear canals. No tenderness to mastoid or pinna bilaterally Head: Yes normocephalic Ears: hearing grossly normal bilaterally General nose exam: Normal external nose present Face and sinus: Yes normal facial exam and Yes sinuses nontender Mouth: Normal oral and palatal mucosa present and tongue normal Throat: Yes posterior oropharynx normal Eyes General: appearance normal, both eyes and all related structures Conjunctivae: conjunctivae normal Pupils: Equal, round and reactive pupils present EOM: EOMs intact bilaterally and No Nystagmus present Neck Neck: Yes full ROM and Yes no lymphadenopathy Chest Chest palpation & inspection: normal inspection of the chest Resp Effort & Inspection: normal respiratory effort Auscultation: clear to auscultation bilaterally, no crackles, no rales, no rhonchi and no wheezes Cardio Rate: regular rate Rhythm: regular rhythm Peripheral pulses: radial pulses present and dorsalis pedis present GI Inspection: Yes normal to inspection and No Abdominal wall edema Palpation (GI): Soft to palpation, not firm and nontender Auscultation: normal bowel sounds Rectal Exam - Female: deferred General: Yes no CVA tenderness Back/Spine/Pelvis Back: no CVA tenderness Skin General skin exam: no rashes or lesions noted Neuro General: patient oriented x3 Cranial nerves: Yes Equal, round and reactive pupils present, Yes Midline tongue present, Yes Ability to bilaterally elevate shoulders present and No Nystagmus present Gait exam (Neuro): Normal gait present Extrem General: Yes normal to inspection, Yes full ROM and No edema Psych Speech and movement: Normal speech and movement present Affect: normal affect Attitude: cooperative Insight: Good insight present (Psych) Judgement: Good judgement present (Psych) Coding Level of Care Code New Pt Prev Care 18-39yr([id number] Diagnoses Cervical cancer screening Z12.4 Nipple discharge N64.52 Ear itch L29.9 Annual physical exam Z00.00 Additional Codes MICHELLE-7 Assessment Billing - MICHELLE-7 Assessment Tool: MICHELLE-7 Assessment [id number] ([id number]) Assessment & Plan Assessment & Plan (1) Cervical cancer screening: Code(s): Z12.4 - Encounter for screening for malignant neoplasm of cervix Category: Medical Plan: Referral placed to gynecology for annual exams. (2) Nipple discharge: Comment: Left breast Code(s): N64.52 - Nipple discharge Category: Medical Plan: No recurrence in over a year advised patient to continue to monitor her symptoms and follow up as needed for this concern. (3) Ear itch: Code(s): L29.9 - Pruritus, unspecified Category: Medical Plan: On exam patient has mild wax in bilateral ears. May use Debrox drops as needed for wax removal and use topical emollients such as Aquaphor or Vaseline on the outside of the ears for dryness. (4) Annual physical exam: Code(s): Z00.00 - Encounter for general adult medical examination without abnormal findings Category: Medical Plan: Patient is up-to-date on all recommended vaccinations for her age and is not up-to-date on Pap smears referral placed today. Ordered for updated blood work and follow up yearly or sooner if new problems arise. Plan This note was constructed using voice recognition software. While every effort has been made to ensure accuracy and rapier insertion loom fixer, still areas may have been included sometimes these areas may affect the content or meeting of the given symptoms. Total time spent caring for the patient today was 30 minutes. This includes time spent before the visit reviewing the chart, time spent during the visit, and time spent after the visit and documentation. Orders: Orders CT NG by PCR Today Z00.00 - Encounter for general adult medical examination without abnormal findings, Z11.3 - Encounter for screening for infections with a predominantly sexual mode of transmission Complete Blood Count Auto Diff Today Z00.00 - Encounter for general adult medical examination without abnormal findings TSH reflex Free T4 Today Z00.00 - Encounter for general adult medical examination without abnormal findings Vitamin D 25-OH (D2 and D3) Today Z00.00 - Encounter for general adult medical examination without abnormal findings Free T4 (Free Thyroxine) Today Z00.00 - Encounter for general adult medical examination without abnormal findings HIV Ab/Ag Today Z11.3 - Encounter for screening for infections with a predominantly sexual mode of transmission Hepatitis B,C Profile Today Z11.3 - Encounter for screening for infections with a predominantly sexual mode of transmission Comprehensive Met. Panel Today Z00.00 - Encounter for general adult medical examination without abnormal findings Vitamin B12 and Folate Today Z00.00 - Encounter for general adult medical examination without abnormal findings Prolactin Today N64.52 - Nipple discharge Referrals [employer] Referral Z12.4 - Encounter for screening for malignant neoplasm of cervix
== END 2024-07-22 15:33 | disposition home or self-care (01) ==
DX: Z12.4 Encounter for screening for malignant neoplasm of cervix (principal); N64.52 Nipple discharge; L29.9 Pruritus, unspecified; Z00.00 Encounter for general adult medical examination without abnormal findings

== ENCOUNTER 2024-10-09 10:30 | Outpatient (AMB) | payer OTHER, SELFPAY ==
--- NOTE | 2024-10-09 10:40 | A.OFFPC_ITS ---
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: No Accompanied by: Self / Same As Patient Allergies No Known Allergies Allergy (Verified 10/09/24 10:41) Medication List - Last Reconciled 10/09/24 by Anita Kingston PA-C cholecalciferol (vitamin D3) 25 mcg PO DAILY Tobacco use date assessed: 10/09/24 Dental Screening Dental Screen Date: 10/09/24 Did you have a dental visit in the last 12 months?: Yes Did you have a dental problem in the last 6 months where you did not have access to dental care?: No Was dental information given to patient?: Patient has dentist HPI heart beat,sometimes slow, like a Hiccups HPI Details 24-year-old female with no relevant past medical history coming to the office for acute problem. Patient tells us today that she was having palpitations last week and the week prior states it felt like her heart was taking a deep breath. The palpitations were random throughout the day and primarily at rest. Patient declines chest pain or shortness of breath and did not have these palpitations while exercising. The palpitations have stopped this week but does occasionally feel like her heart is racing and then we will returned to a normal rhythm. She also mentioned she has difficulty sleeping at night and we will toss and turn but denies any snoring or waking up short of breath. Denies any lightheadedness or dizziness. [facility] Medical History Acne Social History Housing: Apartment Alcohol intake: current Patient Tobacco Use Status: Never used Tobacco e-Cigarette/Vaping Use: Currently Using Substance Use Type: Marijuana service: No Current occupational status: employed Current occupation: left hand Sexual orientation: Straight/Heterosexual Gender identity: Female Cognitive needs: No Hearing needs: No Vision needs: No Female Reproductive History Menstrual Age of Menarche: 12 Questionnaire PHQ-9 Over the last 2 weeks, how often have you been bothered by any of the following problems? 1. Little interest or pleasure in doing things: not at all 2. Feeling down, depressed, or hopeless: not at all 3. Trouble falling or staying asleep, or sleeping too much: not at all 4. Feeling tired or having little energy: not at all 5. Poor appetite or overeating: not at all 6. Feeling bad about yourself - or that you are a failure or have let yourself or your family down: not at all 7. Trouble concentrating on things, such as reading the newspaper or watching television: not at all 8. Moving or speaking so slowly that other people could have noticed. Or the opposite - being so fidgety or restless that you have been moving around a lot more than usual: not at all 9. Thoughts that you would be better off or of hurting yourself in some way: not at all Total score: 0 Depression Screening Interpretation: Negative Depression Screening Done: Yes 31416 - PHQ-9 Billing: Yes Source: Developed by Drs. Sohail Cunningham, Jennie Armendariz, Juice Blanco and colleagues, with an educational gopal from [employer] Thrive Questionnaire Date Thrive assessed: 10/09/24 I am a: Patient What is your living situation today?: I have a steady place to live Within the past 12 months, did the food you bought not last and you didn't have the money to get more?: I choose not to answer this question Within the past 12 months, did you worry whether your food would run out before you got money to buy more?: I choose not to answer this question Do you have trouble paying for medicines?: No Do you have trouble getting transportation to medical appointments?: No Do you have trouble paying your heating and electricity bill?: I choose not to answer this question Do you have trouble taking care of your child, family member or friend?: No Do you have trouble with day-to-day activities such as bathing, preparing meals, shopping, managing finances, etc.?: No Are you currently unemployed and looking for a job?: No Are you interested in more education?: No Please select the resources that you would like help with: None Currently or been in a relationship where the following occur: No concerns reported THRIVE Score: 0 AUDIT C Alcohol Use Questionnaire (AUDIT-C) 1. How often do you have a drink containing alcohol?: Never 3. How often do you have six or more drinks on one occasion?: Never Total Score: 0 MICHELLE-7 AMB Questionnaire MICHELLE-7 Date MICHELLE - 7 assessed: 10/09/24 Feeling nervous, anxious, or on edge: 0 = Not at all Not being able to stop or control worryin = Not at all Worrying too much about different things: 0 = Not at all Trouble relaxin = Not at all Being so restless that it is hard to sit still: 0 = Not at all Becoming easily annoyed or irritable: 0 = Not at all Feeling afraid as if something awful might happen: 0 = Not at all Total MICHELLE-7 score (0-4 normal; 5-9 mild; 10-14 moderate; 15-21 severe): 0 Source: Developed by Drs. Sohail Cunningham, Jennie Armendariz, Juice Blanco and colleagues, with an educational gopal from [employer] MICHELLE-7 Assessment Billing MICHELLE-7 Assessment Tool: MICHELLE-7 Assessment 76518 Review of Systems Const Denies body aches, Denies chills, Denies fever(s), Denies headache(s) and Denies poor appetite Eyes Reports no additional complaints ENT Denies dizziness and Denies headache(s) Card Details: palpitations Denies chest pain, Denies syncope, Denies edema, Denies lightheadedness and Denies dyspnea Resp Denies cough and Denies dyspnea GI Denies abdominal pain, Denies constipation, Denies diarrhea, Denies nausea and Denies vomiting Reports no additional complaints Musc Reports no additional complaints and Denies abnormal gait Skin/Breast Reports system reviewed and no additional complaints, except as documented Neuro Denies abnormal gait, Denies dizziness, Denies syncope and Denies headache(s) Psych Reports no additional complaints Physical exam (Primary Care) Vital Signs: Oxygen Delivery Method Room Air 10/09/24 10:41 Tobacco/Smoking Status: Tobacco use Status Tobacco use date assessed 07/22/24 07/22/24 14:55 Patient Tobacco Use Status Never used Tobacco 07/22/24 14:55 e-Cigarette/Vaping Use Currently Using 07/22/24 15:01 Depression Screening Interpretation: Negative Thrive Assessment: Date of Thrive Assessment Date Thrive assessed 10/09/24 10/09/24 10:30 Currently or been in a relationship where the following occur: No concerns reported Const General: cooperative, healthy appearing, comfortable and no acute distress Orientation/consciousness: patient oriented x3 HENMT Head: Yes normocephalic Ears: hearing grossly normal bilaterally General nose exam: Normal external nose present Eyes General: appearance normal, both eyes and all related structures Conjunctivae: conjunctivae normal Neck Neck: Yes full ROM and Yes no lymphadenopathy Resp Effort & Inspection: normal respiratory effort Auscultation: clear to auscultation bilaterally, no crackles, no rales, no rhonchi and no wheezes Cardio Rate: regular rate Rhythm: regular rhythm Skin General skin exam: no rashes or lesions noted Neuro General: patient oriented x3 Gait exam (Neuro): Normal gait present Extrem General: Yes normal to inspection, Yes full ROM and No edema Psych Affect: normal affect Attitude: cooperative Insight: Good insight present (Psych) Judgement: Good judgement present (Psych) Coding Level of Care Code Est Pt Level 4 (19878) Diagnoses Palpitations R00.2 Hypersomnolence G47.10 Additional Codes MICHELLE-7 Assessment Billing - MICHELLE-7 Assessment Tool: MICHELLE-7 Assessment 06674 ([id number]) PHQ-9 - 69435 - PHQ-9 Billing: Yes ([id number]) Assessment & Plan Assessment & Plan (1) Palpitations: Code(s): R00.2 - Palpitations Category: Medical Plan: Patient complaining of palpitations throughout the week that have changed in 2 feeling like heart racing. Denies any chest pains or shortness of breath. On exam patient has regular rate and regular rhythm without any murmurs appreciated on auscultation. Ordered for 3 day Holter monitor for further evaluation. Reviewed red flag symptoms and when to present for re-evaluation (2) Hypersomnolence: Code(s): G47.10 - Hypersomnia, unspecified Category: Medical Plan: Patient complaining of fatigue throughout the day states she has been sleeping more often as well. Lab work from July was within normal limits. Ordered for sleep study and we will follow up in 1 month. Plan This note was constructed using voice recognition software. While every effort has been made to ensure accuracy and crop nutrition scientist, still areas may have been included sometimes these areas may affect the content or meeting of the given symptoms. Total time spent caring for the patient today was 20 minutes. This includes time spent before the visit reviewing the chart, time spent during the visit, and time spent after the visit and documentation. Orders: Orders 2 ECG 3 day holter monitor Today R00.2 - Palpitations RT home sleep study Today G47.10 - Hypersomnia, unspecified
[2024-10-09 10:41] VITALS: BP 110/62; PULSE 84; O2SAT 99; BMI 28.4
== END 2024-10-09 11:01 | disposition home or self-care (01) ==
DX: R00.2 Palpitations (principal); G47.10 Hypersomnia, unspecified

== ENCOUNTER → 2024-10-09 10:30 | Outpatient (BNVA) | payer OTHER, SELFPAY | DX: R00.2 Palpitations (principal); G47.10 Hypersomnia, unspecified | CPT/HCPCS: 96127; 99212 ==

== ENCOUNTER 2024-11-12 13:53 | Outpatient (AMB) | payer OTHER, SELFPAY ==
[2024-11-12 14:16] VITALS: BP 100/60; BMI 28.3
--- NOTE | 2024-11-12 14:16 | A.OFFVIS_ITS ---
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 She is sexually active she and partner use vulva method she would be okay with the if it occurred she tries to eat well and takes care of herself she does take vitamins but not multivitamins and folic acid and I do recommend that she start She does get lots of skin outbreaks and has been told she has hidradenitis but she missed the appointment with a county records management officer in now if she were going to be seen it would cost her 100 dollars which she can not afford. She is doing good self-care with avoiding being sweaty etc. she does know that it can be worse if she gets heavier.. In the past though she did not mentioned that is specifically today she did have a history of dyspareunia and so we did talk about that and sometimes once or twice a year she notices a little leaking from her left nipple and that has been mentioned years past as well.. The only other thing of interest is that sometimes her periods which come extremely regularly and last about 4 or 5 days are accompanied with some periods of spotting beforehand and afterwards as well the afterwards spotting is more brown she can have a little cramping with it especially before her period as well. [facility] Medical History Acne Social History Housing: Apartment Alcohol intake: current Patient Tobacco Use Status: Never used Tobacco e-Cigarette/Vaping Use: Currently Using Substance Use Type: Marijuana service: No Current occupational status: employed Current occupation: left hand Sexual orientation: Straight/Heterosexual Gender identity: Female Cognitive needs: No Hearing needs: No Vision needs: No Female Reproductive History Menstrual Age of Menarche: 12 Duration of menses: 6-7 days Date of last menstrual period: 10/29/24 control method: none Total pregnancies: 0 Date of last pap smear: 09/09/20 (negative) History of abnormal pap smear: No Physical Exam Vital Signs: Last Vital Signs BP 100/60 11/12/24 14:16 BMI result Body Mass Index 28.3 Const General: healthy appearing, comfortable, no acute distress, well developed and alert Nutritional Appearance: average body habitus Orientation/consciousness: patient oriented x3 Limitations: no limitations HEENT Head: Yes normocephalic Neck Neck: Yes normal visual inspection Chest Other: I was not able to easily express any liquid from either nipple Chest palpation & inspection: normal inspection of the chest Breast/axilla inspection: normal inspection of the breasts and normal inspection of the axillae Breast/axilla palpation: normal palpation of the breasts and normal palpation of the axillae Resp Effort & Inspection: normal respiratory effort GI Inspection: Yes normal to inspection, No Abdominal wall edema and No distended Palpation (GI): Soft to palpation and nontender Other: Evidence of past a episodes of folliculitis in various stages of healing. Patient has shaved in past. Vagina pink and moist cervix nulliparous pink smooth tightly closed normal appearing mucus does not appear consistent with midcycle ovulatory mucus at this point. Cervix is somewhat posterior and additionally it is low down in pelvis and uterus is small firm retroverted and slightly retroflexed. Adnexa mobile nontender no organomegaly very good tone with Kegel. General: Yes bladder normal to palpation External Female Exam: normal external appearance and normal appearance of the urethra Speculum Exam - Vagina: normal appearance of the vagina, normal palpation and normal vaginal discharge Speculum Exam - Cervix: normal appearance of the cervix, normal palpation and nontender Bimanual exam- vagina & uterus: normal bimanual exam, normal palpation, uterine size normal, bladder normal to palpation, consistency normal, normal palpation, uterine mobility normal, uterine shape normal, No Cervical tenderness present, non-tender and no cervical motion tenderness Bimanual Exam- Adnexa, other: normal adnexae, no masses, normal and No adnexal tenderness Neuro General: patient oriented x3 Assessment & Plan Assessment & Plan (1) Deep dyspareunia: Comment: Teaching done about the will of her retroverted retroflexed uterus and ways to ameliorate the discomfort. Code(s): N94.12 - Deep dyspareunia Category: Medical (2) Nipple discharge: Comment: Left breast-none elicited today 11/12/2024 we will order prolactin nevertheless. Code(s): N64.52 - Nipple discharge Category: Medical (3) Cervical cancer screening: Code(s): Z12.4 - Encounter for screening for malignant neoplasm of cervix Category: Medical (4) Well woman exam with routine gynecological exam: Code(s): Z01.419 - Encounter for gynecological examination (general) (routine) without abnormal findings Category: Medical (5) control counseling: Code(s): Z30.09 - Encounter for other general counseling and advice on contraception Category: Medical (6) Family planning education, guidance, and counseling: Code(s): Z30.09 - Encounter for other general counseling and advice on contraception Category: Medical Plan -----Discussed in this visit the following: healthy balanced diet, regular and consistent exercise, getting recommended health screens, doing the best she can for her particular health concerns, kegel exercises, pap smear screening and followup recommendations, mammography screening and SBE, normal changes in cycles in her life stage--- Discussed fertility awareness and I recommend highly that she start keeping track of her periods and changes in the cervical mucus so she has some more information should she get since she is just using pull out as her method at this time and this way she will at least no when she conceived. Also discussed how the position of her cervix and retroverted uterus are probably contributing to the dyspareunia that she had mentioned some years ago and it is just simply part of her anatomy discussed ways to deal with it. . Everything we checked today discussed the possible rationale for her spotting before and after her menses it might have to do with her tightly closed nulliparous cervix as it is consistent with her cramping and it is regular having to do with the menses. Additionally discussed the random rare leaking from her left breast it happened twice last year. It was noted in the past as well I will order a prolactin level along with her other labs but she does have breast stimulation through sexual intimacy so it could very well be explainable ---I discussed with pt some of the optimal strategies for planning a , including achieving the best health she can before , including heathy balanced diet, exercise, wt loss to ideal BMI if appropriate, avoiding toxic substances and medications, not smoking, and taking a multivitamin w folic acid daily. Any specific health concerns should be managed before seeking/ putting oneself at risk of pregancy. In addition I reviewed normal cycles, fertility awareness and signs of ov ulation, and timing to avoid, and achieve when she feel ready. I also discussed emotional and relationship and support readiness before embarking on . Discussed being physically and emotionally ready and being in the best health she can be in. Discussed taking multivitamins with folic acid discussed trying to be best weight and having addressed as many healthcare challenges as might be necessary ahead of time.. Discussed options for care and delivery in the [facility] which include depending on where she lives delivering at either [facility], [facility], [facility], and/ or other options. Discussed that is she would be having her 1st baby I would strongly recommend that she consider starting care from the start with a practice that she would want to deliver with. Discussed the rationale in the there so many issues to think about and consider in 1st that she would want establish trusting relationships with providers who are going to deliver her baby so she can feel comfortable discussing anything that could come up. Discussed that while we CAN provide care here at [facility], because we are not delivering babies here here and do not have full scope obstetrical practice here, somebody having their 1st baby would be better served starting from the beginning where they would deliver. If somebody is low risk and chooses to come here for care any obstetrical ultrasounds and specialized testing would need to be done at [facility] and delivery occurs at [facility]. Because of the issues involved with transfer information sometimes information can sometimes not crossover as expected. Orders: Orders CT NG by PCR Today N89.8 - Other specified noninflammatory disorders of vagina, Z20.2 - Contact with and (suspected) exposure to infections with a predominantly sexual mode of transmission Hepatitis B Surface Antigen Today N64.52 - Nipple discharge, N94.12 - Deep dyspareunia, Z01.419 - Encounter for gynecological examination (general) (routine) without abnormal findings, Z12.4 - Encounter for screening for malignant neoplasm of cervix, Z30.09 - Encounter for other general counseling and advice on contraception Syphilis Screen Today N64.52 - Nipple discharge, N94.12 - Deep dyspareunia, Z01.419 - Encounter for gynecological examination (general) (routine) without abnormal findings, Z12.4 - Encounter for screening for malignant neoplasm of cervix, Z30.09 - Encounter for other general counseling and advice on contraception Prolactin Today N64.52 - Nipple discharge, N94.12 - Deep dyspareunia, Z01.419 - Encounter for gynecological examination (general) (routine) without abnormal findings, Z12.4 - Encounter for screening for malignant neoplasm of cervix, Z30.09 - Encounter for other general counseling and advice on contraception Pap Smear Today Z00.00 - Encounter for general adult medical examination without abnormal findings Bacterial Vaginosis Panel Today N89.8 - Other specified noninflammatory disorders of vagina Hepatitis C Antibody Today N64.52 - Nipple discharge, N94.12 - Deep dyspareunia, Z01.419 - Encounter for gynecological examination (general) (routine) without abnormal findings, Z12.4 - Encounter for screening for malignant neoplasm of cervix, Z30.09 - Encounter for other general counseling and advice on contraception HIV Ab/Ag Today N64.52 - Nipple discharge, N94.12 - Deep dyspareunia, Z01.419 - Encounter for gynecological examination (general) (routine) without abnormal findings, Z12.4 - Encounter for screening for malignant neoplasm of cervix, Z30.09 - Encounter for other general counseling and advice on contraception Thyroid Stimulating Hormone Today N64.52 - Nipple discharge, N94.12 - Deep dyspareunia, Z01.419 - Encounter for gynecological examination (general) (routi ne) without abnormal findings, Z12.4 - Encounter for screening for malignant neoplasm of cervix, Z30.09 - Encounter for other general counseling and advice on contraception Coding Level of Care Code New Pt Prev Care 18-39yr([id number] Diagnoses Deep dyspareunia N94.12 Nipple discharge N64.52 Cervical cancer screening Z12.4 Well woman exam with routine gynecological exam Z01.419 control counseling Z30. Family planning education, guidance, and counseling Z30. Time Spent (min) 45 Comment Teaching done about all of her various health concern issues
--- OUTSIDE RECORDS SUMMARY | 2024-11-12 15:14 | XMS_ITS | Encounter Summary ---
Author Organization [facility] Address [address] [place] [address] Phone Care Team Providers Care Genetic Physician Name Role Phone Roslyn Moss MD Primary Care Provider [phone] Encounter Details Date Type Department Care Team (Late st Contact Info) Description 10/12/2014 [place] [facility] [place] [address] [place], [place] [id number] Family Medicine, Physician [address] [place] [address] Social History Tobacco Use Types Packs/Day Years Used Date Smoking Tobacco: Never Assessed Comments Unknown Sex and Gender Information Value Date Recorded Sex Assigned at Not on file Legal Sex Female 3:43 PM EDT Gender Identity Not on file Sexual Orientation Not on file documented as of this encounter Plan of Treatment Not on file documented as of this encounter Visit Diagnoses Not on filedocumented in this encounter Care Teams Genetic Physician Relationship Specialty Start Date End Date Roslyn Moss MD [address] [place] [address] ALISA Bermudez [id number] PCP - General 05/11/17 10/19/22 documented as of this encounter
--- OUTSIDE RECORDS SUMMARY | 2024-11-12 15:14 | XMS_ITS | Encounter Summary ---
Author Organization [facility] Address [address] [place] [address] Phone Care Team Providers Care Material Control Clerk Name Role Phone Roslyn Moss MD Primary Care Provider [phone] Encounter Details Date Type Department Care Team (Late st Contact Info) Description 04/12/2016 [place] [facility] [place] [address] [place], [place] [id number] Family Medicine, Physician [address] [place] [address] Social History Tobacco Use Types Packs/Day Years [...] on filedocumented in this encounter Care Teams Material Control Clerk Relationship Specialty Start Date End Date Roslyn Moss MD [address] [place] [address] ALISA Bermudez [id number] PCP - General 05/11/17 10/19/22 documented as of this encounter
--- OUTSIDE RECORDS SUMMARY | 2024-11-12 15:14 | XMS_ITS | Encounter Summary ---
Author Organization [facility] Address [address] [place] [address] Phone Care Team Providers Care Church Administrator Name Role Phone Roslyn Moss MD Primary Care Provider [phone] Encounter Details Date Type Department Care Team (Late st Contact Info) Description 12/29/[address] [facility] [place] [address] [place], [place] [id number] Family Medicine, Physician [address] [place] [address] Social History Tobacco Use Types Packs/Day Years [...] on filedocumented in this encounter Care Teams Church Administrator Relationship Specialty Start Date End Date Roslyn Moss MD [address] [place] [address] ALISA Bermudez [id number] PCP - General 05/11/17 10/19/22 documented as of this encounter
--- OUTSIDE RECORDS SUMMARY | 2024-11-12 15:14 | XMS_ITS | Encounter Summary ---
Author Organization [facility] Address [address] [place] [address] Phone Care Team Providers Care Weaver Hand Name Role Phone Roslyn Moss MD Primary Care Provider [phone] Encounter Details Date Type Department Care Team (Late st Contact Info) Description 02/18/2010 Documentation [facility] [place] Family Medicine [address] [place] [address] Family Medicine, Physician [address] [place] [address] Social History Tobacco Use Types Packs/Day Years [...] on filedocumented in this encounter Care Teams Weaver Hand Relationship Specialty Start Date End Date Roslyn Moss MD [address] [place] [address] ALISA Bermudez [address] PCP - General 05/11/17 10/19/22 documented as of this encounter
--- OUTSIDE RECORDS SUMMARY | 2024-11-12 15:14 | XMS_ITS | Encounter Summary ---
Author Organization [facility] Address [address] [place] [address] Phone Care Team Providers Care Wheat Cleaner Name Role Phone Roslyn Moss MD Primary Care Provider [phone] Encounter Details Date Type Department Care Team (Late st Contact Info) Description 11/22/2016 Documentation [facility] [place] Medicine [address] [place], [place] [id number] Family Medicine, Physician [address] [place] [address] Social History Tobacco Use Types Packs/Day Years Used Date Smoking Tobacco: Never Comments:Never smoker Comments Unknown Sex and Gender Information Value Date Recorded Sex Assigned at Not on file Legal Sex Female 3:43 PM EDT Gender Identity Not on file Sexual Orientation Not on file documented as of this encounter Plan of Treatment Not on file documented as of this encounter Visit Diagnoses Not on filedocumented in this encounter Care Teams Wheat Cleaner Relationship Specialty Start Date End Date Roslyn Moss MD [address] [place] [address] ALISA Bermudez [address] PCP - General 05/11/17 10/19/22 documented as of this encounter
--- OUTSIDE RECORDS SUMMARY | 2024-11-12 15:14 | XMS_ITS | Encounter Summary ---
Author Organization [facility] Address [address] [place] [address] Phone Care Team Providers Care Nail Galvanizer Name Role Phone Roslyn Moss MD Primary Care Provider [phone] Encounter Details Date Type Department Care Team (Late st Contact Info) Description 02/06/2013 Documentation [facility] [place] [address] [place] [address] Family Medicine, Physician [address] [place] [address] Social History Tobacco Use Types Packs/Day Years [...] on filedocumented in this encounter Care Teams Nail Galvanizer Relationship Specialty Start Date End Date Roslyn Moss MD [address] [place] [address] ALISA Bermudez [address] PCP - General 05/11/17 10/19/22 documented as of this encounter
--- OUTSIDE RECORDS SUMMARY | 2024-11-12 15:14 | XMS_ITS | Encounter Summary ---
Author Organization [facility] Address [address] [place] [address] Phone Care Team Providers Care Surgical Dressing Maker Name Role Phone Roslyn Moss MD Primary Care Provider [phone] Encounter Details Date Type Department Care Team (Late st Contact Info) Description 04/12/2016 Documentation [facility] [place] Family Medicine [address] [place], [place] [id number] Family Medicine, Physician [address] [place] [address] Social History Tobacco Use Types Packs/Day Years [...] on filedocumented in this encounter Care Teams Surgical Dressing Maker Relationship Specialty Start Date End Date Roslyn Moss MD [address] [place] [address] ALISA Bermudez [address] PCP - General 05/11/17 10/19/22 documented as of this encounter
--- OUTSIDE RECORDS SUMMARY | 2024-11-12 15:14 | XMS_ITS | Encounter Summary ---
Author Organization [facility] Address [address] [place] [address] Phone Care Team Providers Care Pension Manager Name Role Phone Roslyn Moss MD Primary Care Provider [phone] Encounter Details Date Type Department Care Team (Late st Contact Info) Description 06/05/2013 [place] [facility] [place] [address] [place] [address] Family Medicine, Physician [address] [place] [address] Social History Tobacco Use Types Packs/Day Years [...] on filedocumented in this encounter Care Teams Pension Manager Relationship Specialty Start Date End Date Roslyn Moss MD [address] [place] [address] ALISA Bermudez [address] PCP - General 05/11/17 10/19/22 documented as of this encounter
--- OUTSIDE RECORDS SUMMARY | 2024-11-12 15:14 | XMS_ITS | Clinical Summary ---
Author Organization [facility] Address [address] [place] [address] Phone Care Team Providers Care Janitor Name Role Phone Unavailable Primary Care Provider Unavailabl e Allergies No known active allergies Medications triamcinolone 0.1 % creamIndication s:Xerosis of skin Mix 80 g tube of triamcinolone into 1 lb jar of CeraVe. Apply mixture twice daily. 80 g 3 1 Active spironolactone (Aldactone) 100 MG tabletIndicatio ns:Hidradenitis suppurativa Take 1 tablet (100 mg total) by mouth daily. 30 tablet 2 1 Active clindamycin 150 MG capsule TAKE 3 CAPSULES BY MOUTH EVERY 8 HOURS FOR 10 DAYS 1 Active Active Problems Problem Noted Date Diagnosed Date Plantar wart, right foot 02/02/2021 Assessment & Plan (02/02/2021 12:54 PM EDT): Wart pared and cryotherapy performed. Recommend salicylic acid until resolved. Hidradenitis suppurativa 12/15/2020 Xerosis of skin 12/15/2020 Assessment & Plan (02/02/2021 12:50 PM EDT): continue use of cerave after showers and gentle cleansers Alopecia areata 11/08/2020 Assessment & Plan (02/02/2021 12:51 PM EDT): reassured patient it is resolving. Will notify us if it reoccurs. Assessment & Plan (12/15/2020 1:07 PM EDT): New over the last 1-2 months. Exclamation point hairs noted on exam, pathognomonic for alopecia areata. Treated today with injection of intralesional Kenalog total 0.2 ml diluted solution distributed at 4 sites within patch of alopecia. F/u at next derm clinic. Immunizations Immunization Administration Dates Next Due DTaP 5 10/03/2005, 2,01/11/2001,11/07,2000 H1N1 07/09/2009 HPV, Quadrivalent 10/09/2014,02/05/2013,12/04/19 13 Hep A, ped/adol 04/11/2016,10/09/2014 Hep B, ped/adol 03/08/2001,2000,2000 Hib (PRP-T) 11/25/2001, 1,2000,08/27 IPV 10/03/2005, 1,2000,08/27 Influenza, injectable, MDCK, preservative free, quadrivalent 09/22/2016 Influenza, injectable, quadrivalent 10/09/2014 Influenza, injectable, quadr ivalent, preservative free 12/21/2020,05/28/2017 Influenza, injectable, trivalent 009,09/02/2008,08/26/2007,07/24 MMR 10/03/2005,07/12/2001 Meningococcal B Trumenba 01/05/2020,07/04/2019 Meningococcal Conj (Menactra) MCV4P 09/22/2016,0 12/03/2012 Pneumococcal Conjugate 07/17/2003,2000,2000,08/27 Td (adult) (Tenivac), 5 Lf t etanus toxoid, PF, adsorbed 06/17/2020 Tdap 12/03/2012 Varicella 04/13/2008,07/17/2003 Family History Medical History Relation Name Comments Asthma Brother Sixto No Known Problems Mother Yulisa Asthma Sister Yulisa Relation Name Status Comments Brother Sixto Alive Father does not speak to dad Mother Yulisa Alive Mother: Develop mental dislocation of hip Other No family histo ry of Strabismus/amblyopia, No family history of Diabetes mellitus, No family history of Autism, No family history of Sudden /CT under age 55, No family history of Elevated cholesterol, Family history of ADD/ADHD, No family history of Deafness, No family history of Seizure disorder, No family history of Migraines, No family history of Asthma Sister Yulisa Alive Social History Tobacco Use Types Packs/Day Years Used Date Smoking Tobacco: Never Smokeless Tobacco: Never Comments:Never smoker Hunger/Food Answer Date Recorded In the last 12 months, did y ou or your family ever eat less than you felt you should because there wasn't enough money for food? No 12/21/2020 Stable Housing Answer Date Recorded Are you worried that in the next 2 months you may not have stable housing? No 12/21/2020 Transportation Concerns Answer Date Rec orded In the last 12 months, have you or your family ever had to go without healthcare because you didn't have a way to get there? No 12/21/2020 Hazards in Home Answer Date Recorded Think about the place you li ve. Do you have problems with any of the following? Pests (mice or roaches), mold, no/not working smoke detectors, water leaks, no window guards. No 2020 Financing Utilities Answer Date Recorde d In the last 12 months, has t he electric, gas, oil, or water company threatened to shut off your services in your home? No 12/21/2020 Safety at Home Answer Date Recorded Are you or your family worried about feeling saf e in your home? No 12/21/2020 Outside Support Answer Date Recorded Do you feel that you need mo re support from other people or programs to help you care for yourself or your family? No 12/21/2020 Understanding Health Concerns Answer Da te Recorded Do you need help understandi ng your or your child's healthcare needs (diagnosis, medications, plan, etc.)? No 12/21/2020 Financing Health Concerns Answer Date R ecorded In the last 12 months, was t here a time when your child needed to see a doctor or get medications or supplies but could not because of cost? No 12/21/2020 Missing School or Work Answer Date Reji rded Did you or your child miss s chool or work because of a health problem that could have been avoided? No 12/21/2020 Comments No Sex and Gender Information Value Date Recorded Sex Assigned at Not on file Legal Sex Female 3:43 PM EDT Gender Identity Not on file Sexual Orientation Not on file Last Filed Vital Signs Vital Sign Reading Time Taken Comments Blood Pressure 108/68 03/08/2021 4:37 PM EDT Pulse 86 03/08/2021 4:37 PM EDT Temperature 36.1 ??C (96.9 ??F) 03/08/2021 4:37 PM ED T Respiratory Rate 20 08/19/2019 2:50 PM EST Oxygen Saturation - - Inhaled Oxygen Concentration - - Weight 62.2 kg (137 lb 3.2 oz) 03/08/2021 4:37 P M EDT Height 163 cm (5' 4.17 ) 03/01/2021 3:12 PM EDT Body Mass Index 23.42 03/01/2021 3:12 PM EDT Plan of Treatment Health Maintenance Due Date Last Done Comments Influenza Vaccines (#1) 2024 12/22/19 21, 05/28/2017, 09/22/2016, Additional history exists COVID-19 Vaccine ( - 2023-2 5 season) 2024 DTaP,Tdap,and Td Vaccines (8 - Td or Tdap) 06/17/2030 06/17/2020, 12/03/2012, 10/03/2005, Additional history exists Hepatitis B Vaccines Completed 03/08/2001, 2000, 2000 HIB Vaccines Completed 11/25/2001, 12/30, 2000, Additional history exists Pneumococcal Vaccine Completed 07/17/2003, 01/11/2001, 2000, Additional history exists IPV Vaccines Completed 10/03/2005, 05/2001, 2000, Additional history exists MMR Vaccines Completed 10/03/2005, 07/12/2001 Varicella Vaccines Completed 04/13/2008, 07/17/2003 HPV Vaccines Completed 10/09/2014, 05/2013, 12/03/2012 Hepatitis A Vaccines Completed 04/11/2016, 10/09/19 15 Meningococcal Vaccine Completed 09/22/2016, 013 Men B Vaccine Completed 01/05/2020, 07/04/2019 Procedures * Due to [place] [employer] law, this organization might not be sharing sensitive test results. Procedure Name Priority Date/Time Associated Diagnosis Comments CHLAMYDIA AND GONORRHEA, AMPLIFIED Routine 12/21/2020 9:06 AM EDT Screening examination for bacterial and spirochetal disease from Last 3 Months or Most Recently Relevant to Health Maintenance Results * Due to [place] [employer] law, this organization might not be sharing sensitive test results. * Chlamydia and Gonorrhoea, Amplified (12/21/2020 9:06 AM EDT) Chlamydia Trachomatis, DNA Probe NEGATIVE (NEG) [facility] Comment: No Chlamydia Trachomatis RNA detected in this patient's sample ? (REFERENCE RANGE/NORMAL VALUE: NOT DETECTED) ? Note: This test uses planning feeder- mediated amplification method to detect rRNA from C. Trachomatis URINE GC AMP PROBE NEGATIVE (NEG) [facility] Comment: No Neisseria Gonorrhoeae RNA detected in this patient's sample ? (REFERENCE RANGE/NORMAL VALUE: NOT DETECTED) ? NOTE: This test uses planning feeder-mediated amplification method to detect rRNA from N.Gonorrhoeae. A negative result does not preclude infection. In the case of a negative urine result, testing of an endocervical(female) or urethral (male) specimen is recommended if there is high clinical suspicion of infection. Due to very high sensitivity of Nucleic Acid Amplification Test, false positive results may occur. Therefore, specimen handling is extremely important. In patients in whom the disease is unlikely, additional sample for testing should be considered after an initial positive result. The performance characteristics of this test have not been evaluated in children. The Aptima Combo2 assay is not intended for the evaluation of suspected sexual abuse or for other medico-legal indications. The ordering provider should assess if the patient had consensual sex without risk of sexual abuse. Consult the [facility] if needed. Contact phone number . Therapeutic failure or success cannot be determined with the Aptima Combo2 assay since nucleic acid may persist following appropriate antimicrobial therapy. The Centers for Disease Control and Prevention (CDC) recommends confirmatory retesting using culture or a different nucleic acid amplification test when positive results occur, if indicated. Testing performed or reported by [facility], a Service of [facility], [address] [place] [address] Bipin Eugene MD, Records Management Associate Urine 12/21/2020 9:06 AM EDT 12/21/2020 6:58 PM EDT us Roslyn Moss MD LAB MICROBIOLOGY - GENERAL ORD ERABLES Final Result [facility] from Last 3 Months or Most Recently Relevant to Health Maintenance
--- OUTSIDE RECORDS SUMMARY | 2024-11-12 15:14 | XMS_ITS | Encounter Summary ---
Author Organization [facility] Address [address] [place] [address] Phone Care Team Providers Care Pharmacist Per Diem Name Role Phone Roslyn Moss MD Primary Care Provider [phone] Encounter Details Date Type Department Care Team (Late st Contact Info) Description 12/04/2012 Documentation [facility] [place] Family Medicine [address] [place], [place] [id number] Family Medicine, Physician [address] [place] [address] Social History Tobacco Use Types Packs/Day Years [...] on filedocumented in this encounter Care Teams Pharmacist Per Diem Relationship Specialty Start Date End Date Roslyn Moss MD [address] [place] [address] ALISA Bermudez [address] PCP - General 05/11/17 10/19/22 documented as of this encounter
--- OUTSIDE RECORDS SUMMARY | 2024-11-12 15:14 | XMS_ITS | Encounter Summary ---
Author Organization [facility] Address [address] [place] [address] Phone Care Team Providers Care Planer Mill Grader Name Role Phone Roslyn Moss MD Primary Care Provider [phone] Encounter Details Date Type Department Care Team (Late st Contact Info) Description 10/14/2014 Documentation [facility] [place] Family Medicine [address] [place], [place] [phone] Family Medicine, Physician [address] [place] [address] Social History Tobacco Use Types Packs/Day Years [...] on filedocumented in this encounter Care Teams Planer Mill Grader Relationship Specialty Start Date End Date Roslyn Moss MD [address] [place] [address] ALISA Bermudez [address] PCP - General 05/11/17 10/19/22 documented as of this encounter
--- OUTSIDE RECORDS SUMMARY | 2024-11-12 15:14 | XMS_ITS | Encounter Summary ---
Author Organization [facility] Address [address] [place] [address] Phone Care Team Providers Care Rubber Press Operator Name Role Phone Roslyn Moss MD Primary Care Provider [phone] Encounter Details Date Type Department Care Team (Late st Contact Info) Description 06/13/2017 Conversion Encounter [facility] [place] [address] [place] [address] Social History Tobacco Use Types Packs/Day Years [...] on filedocumented in this encounter Care Teams Rubber Press Operator Relationship Specialty Start Date End Date Roslyn Moss MD [address] [place] [address] PCP - General 05/11/17 10/19/22 documented as of this encounter
--- OUTSIDE RECORDS SUMMARY | 2024-11-12 15:14 | XMS_ITS | Encounter Summary ---
Author Organization [facility] Address [address] [place] [address] Phone Care Team Providers Care Water Technician Name Role Phone Roslyn Moss MD Primary Care Provider [phone] Encounter Details Date Type Department Care Team (Late st Contact Info) Description 10/14/2014 Documentation [facility] [place] Family Medicine [address] [place], [place] [id number] Family Medicine, Physician [address] [place] [address] Social History Tobacco Use Types Packs/Day Years [...] on filedocumented in this encounter Care Teams Water Technician Relationship Specialty Start Date End Date Roslyn Moss MD [address] [place] [address] ALISA Bermudez [address] PCP - General 05/11/17 10/19/22 documented as of this encounter
--- OUTSIDE RECORDS SUMMARY | 2024-11-12 15:14 | XMS_ITS | Encounter Summary ---
Author Organization [facility] Address [address] [place] [address] Phone Care Team Providers Care Roll Out Manager Name Role Phone Roslyn Moss MD Primary Care Provider [phone] Encounter Details Date Type Department Care Team (Late st Contact Info) Description 12/04/2012 Documentation [facility] [place] Family Medicine [address] [place], [place] [id number] Family Medicine, Physician [address] [place] [address] Social History Tobacco Use Types Packs/Day Years [...] on filedocumented in this encounter Care Teams Roll Out Manager Relationship Specialty Start Date End Date Roslyn Moss MD [address] [place] [address] ALISA Bermudez [address] PCP - General 05/11/17 10/19/22 documented as of this encounter
--- OUTSIDE RECORDS SUMMARY | 2024-11-12 15:14 | XMS_ITS | Encounter Summary ---
Author Organization [facility] Address [address] [place] [address] Phone Care Team Providers Care Legal Contracts Specialist Name Role Phone Roslyn Moss MD Primary Care Provider [phone] Encounter Details Date Type Department Care Team (Late st Contact Info) Description 12/29/2013 Documentation [facility] [place] Family Medicine [address] [place], [place] [phone] Family Medicine, Physician [address] [place] [address] Social History Tobacco Use Types Packs/Day Years [...] on filedocumented in this encounter Care Teams Legal Contracts Specialist Relationship Specialty Start Date End Date Roslyn Moss MD [address] [place] [address] ALISA Bermudez [address] PCP - General 05/11/17 10/19/22 documented as of this encounter
--- OUTSIDE RECORDS SUMMARY | 2024-11-12 15:14 | XMS_ITS | Encounter Summary ---
Author Organization [facility] Address [address] [place] [address] Phone Care Team Providers Care Curator Of Collections Name Role Phone Roslyn Moss MD Primary Care Provider [phone] Encounter Details Date Type Department Care Team (Late st Contact Info) Description 10/14/2014 [place]ation [facility] [place] [address] [place], [place] [id number] Family Medicine, Physician [address] [place] [address] Social History Tobacco Use Types Packs/Day Years [...] on filedocumented in this encounter Care Teams Curator Of Collections Relationship Specialty Start Date End Date Roslyn Moss MD [address] [place] [address] ALISA Bermudez [address] PCP - General 05/11/17 10/19/22 documented as of this encounter
--- OUTSIDE RECORDS SUMMARY | 2024-11-12 15:14 | XMS_ITS | Encounter Summary ---
Author Organization [facility] Address [address] [place] [address] Phone Care Team Providers Care Sem Manager Name Role Phone Roslyn Moss MD Primary Care Provider [phone] Encounter Details Date Type Department Care Team (Late st Contact Info) Description 01/05/2012 Documentation [facility] [place] Family Medicine [address] [place] [address] Family Medicine, Physician [address] [place] [address] Social History Tobacco Use Types Packs/Day Years [...] on filedocumented in this encounter Care Teams Sem Manager Relationship Specialty Start Date End Date Roslyn Moss MD [address] [place] [address] ALISA Bermudez [address] PCP - General 05/11/17 10/19/22 documented as of this encounter
--- OUTSIDE RECORDS SUMMARY | 2024-11-12 15:14 | XMS_ITS | Encounter Summary ---
Author Organization [facility] Address [address] [place] [address] Phone Care Team Providers Care Nuclear Waste Process Operator Name Role Phone Roslyn Moss MD Primary Care Provider [phone] Encounter Details Date Type Department Care Team (Late st Contact Info) Description 10/18/2012 Documentation [facility] [place] Family Medicine [address] [place], [place] [phone] Family Medicine, Physician [address] [place] [address] Social History Tobacco Use Types Packs/Day Years [...] on filedocumented in this encounter Care Teams Nuclear Waste Process Operator Relationship Specialty Start Date End Date Roslyn Moss MD [address] [place] [address] ALISA Bermudez [address] PCP - General 05/11/17 10/19/22 documented as of this encounter
--- OUTSIDE RECORDS SUMMARY | 2024-11-12 15:14 | XMS_ITS | Encounter Summary ---
Author Organization [facility] Address [address] [place] [address] Phone Care Team Providers Care Electro Mechanical Technologist Name Role Phone Roslyn Moss MD Primary Care Provider [phone] Encounter Details Date Type Department Care Team (Late st Contact Info) Description 04/12/2016 Documentation [facility] [place] Family Medicine [address] [place], [place] [id number] Family Medicine, Physician [address] [place] [address] Social History Tobacco Use Types Packs/Day Years [...] on filedocumented in this encounter Care Teams Electro Mechanical Technologist Relationship Specialty Start Date End Date Roslyn Moss MD [address] [place] [address] ALISA Bermudez [address] PCP - General 05/11/17 10/19/22 documented as of this encounter
--- OUTSIDE RECORDS SUMMARY | 2024-11-12 15:14 | XMS_ITS | Encounter Summary ---
Author Organization [facility] Address [address] [place] [address] Phone Care Team Providers Care Algorithm Developer Name Role Phone Roslyn Moss MD Primary Care Provider [phone] Encounter Details Date Type Department Care Team (Late st Contact Info) Description 02/06/2013 Documentation [facility] [place] Family Medicine [address] [place] [address] Family Medicine, Physician [address] [place] [address] Social History Tobacco Use Types Packs/Day Years [...] on filedocumented in this encounter Care Teams Algorithm Developer Relationship Specialty Start Date End Date Roslyn Moss MD [address] [place] [address] ALISA Bermudez [address] PCP - General 05/11/17 10/19/22 documented as of this encounter
--- OUTSIDE RECORDS SUMMARY | 2024-11-12 15:14 | XMS_ITS | Encounter Summary ---
Author Organization [facility] Address [address] [place] [address] Phone Care Team Providers Care Pharmaceutical Engineer Name Role Phone Roslyn Moss MD Primary Care Provider [phone] Encounter Details Date Type Department Care Team (Late st Contact Info) Description 09/25/2016 Documentation [facility] [place] Family Medicine [address] [place], [place] [id number] Family Medicine, Physician [address] [place] [address] Social History Tobacco Use Types Packs/Day Years [...] on filedocumented in this encounter Care Teams Pharmaceutical Engineer Relationship Specialty Start Date End Date Roslyn Moss MD [address] [place] [address] ALISA Bermudez [address] PCP - General 05/11/17 10/19/22 documented as of this encounter
--- OUTSIDE RECORDS SUMMARY | 2024-11-12 15:14 | XMS_ITS | Encounter Summary ---
Author Organization [facility] Address [address] [place] [address] Phone Care Team Providers Care Shear Operator Automatic Name Role Phone Roslyn Moss MD Primary Care Provider [phone] Encounter Details Date Type Department Care Team (Late st Contact Info) Description 12/04/2012 Documentation [facility] [place] Family Medicine [address] [place], [place] [id number] Family Medicine, Physician [address] [place] [address] Social History Tobacco Use Types Packs/Day Years [...] on filedocumented in this encounter Care Teams Shear Operator Automatic Relationship Specialty Start Date End Date Roslyn Moss MD [address] [place] [address] ALISA Bermudez [address] PCP - General 05/11/17 10/19/22 documented as of this encounter
== END 2024-11-12 15:36 | disposition home or self-care (01) ==
PROVIDERS: Visit Provider Advanced Practice Midwife
DX: Z01.419 Encounter for gynecological examination (general) (routine) without abnormal findings (principal); N94.12 Deep dyspareunia; N64.52 Nipple discharge
CPT/HCPCS: 99385; 99459

== ENCOUNTER 2024-11-12 13:53 | Outpatient (REF) | payer OTHER, SELFPAY ==
--- OUTSIDE RECORDS SUMMARY | 2024-11-12 16:14 | XMS_ITS | Encounter Summary ---
Author Organization [facility] Address [address] [place] [address] Phone Care Team Providers Care Chief Transfer And Pumphouse Operator Name Role Phone Roslyn Moss MD Primary Care Provider [phone] Encounter Details Date Type Department Care Team (Late st Contact Info) Description 12/29/2013 Documentation [facility] Family Medicine [address] [place], [place] [phone] Family Medicine, Physician [address] [place] [address] Social History Tobacco Use Types Packs/Day Years [...] on filedocumented in this encounter Care Teams Chief Transfer And Pumphouse Operator Relationship Specialty Start Date End Date Roslyn Moss MD [address] [place] [address] ALISA Bermudez [address] PCP - General 05/11/17 10/19/22 documented as of this encounter
--- OUTSIDE RECORDS SUMMARY | 2024-11-12 16:14 | XMS_ITS | Encounter Summary ---
Author Organization [facility] Address [address] [place] [address] Phone Care Team Providers Care Investigation Division Captain Name Role Phone Roslyn Moss MD Primary Care Provider [phone] Encounter Details Date Type Department Care Team (Late st Contact Info) Description 06/05/2013 Documentation [facility] Family Medicine [address] [place] [address] Family Medicine, Physician [address] [place] [address] Social History Tobacco Use Types Packs/Day Years [...] on filedocumented in this encounter Care Teams Investigation Division Captain Relationship Specialty Start Date End Date Roslyn Moss MD [address] [place] [address] ALISA Bermudez [address] PCP - General 05/11/17 10/19/22 documented as of this encounter
--- OUTSIDE RECORDS SUMMARY | 2024-11-12 16:14 | XMS_ITS | Encounter Summary ---
Author Organization [facility] Address [address] [place] [address] Phone Care Team Providers Care Machine Baster Name Role Phone Roslyn Moss MD Primary Care Provider Encounter Details Date Type Department Care Team (Late st Contact Info) Description 12/04/2012 Documentation [facility] [place] Family Medicine [address] [place], [place] [phone] Family Medicine, Physician [address] [place] [address] Social History Tobacco Use Types Packs/Day Years [...] on filedocumented in this encounter Care Teams Machine Baster Relationship Specialty Start Date End Date Roslyn Moss MD [address] [place] [address] ALISA Bermudez [address] PCP - General 05/11/17 10/19/22 documented as of this encounter
--- OUTSIDE RECORDS SUMMARY | 2024-11-12 16:14 | XMS_ITS | Clinical Summary ---
Author Organization [facility] Address [address] [place] [address] Phone Care Team Providers Care Blogs Manager Name Role Phone Unavailable Primary Care Provider [...] of Autism, No family history of Sudden /[place] under age 55, No family history of [...] Completed 01/05/2020, 07/04/2019 Procedures * Due to [place] [employer] law, this organization might not be sharing sensitive test results. Procedure Name Priority Date/Time Associated Diagnosis Comments CHLAMYDIA AND GONORRHEA, AMPLIFIED Routine 12/21/2020 9:06 AM EDT Screening examination for bacterial and spirochetal disease from Last 3 Months or Most Recently Relevant to Health Maintenance Results * Due to [place] [employer] law, this organization might not be sharing sensitive test results. * Chlamydia and Gonorrhoea, Amplified (12/21/2020 9:06 AM EDT) Chlamydia Trachomatis, DNA Probe NEGATIVE (NEG) [facility] Comment: No Chlamydia Trachomatis RNA detected in this patient's sample ? (REFERENCE RANGE/NORMAL VALUE: NOT DETECTED) ? Note: This test uses pharmacovigilance specialist- mediated amplification method to detect rRNA from C. Trachomatis URINE GC AMP PROBE NEGATIVE (NEG) [facility] Comment: No Neisseria Gonorrhoeae RNA detected in this patient's sample ? (REFERENCE RANGE/NORMAL VALUE: NOT DETECTED) ? NOTE: This test uses pharmacovigilance specialist-mediated amplification method to detect rRNA from N.Gonorrhoeae. [...] without risk of sexual abuse. Consult the [facility] if needed. Contact phone number . Therapeutic failure or success cannot be determined with the Aptima Combo2 assay since nucleic acid may persist following appropriate antimicrobial therapy. The Centers for Disease Control and Prevention (CDC) recommends confirmatory retesting using culture or a different nucleic acid amplification test when positive results occur, if indicated. Testing performed or reported by [facility], a Service of [facility], [address] [place] [address] Bipin Eugene MD, Retail Advertising Sales Manager Urine 12/21/2020 9:06 AM EDT 12/21/2020 6:58 PM EDT us Roslyn Moss MD LAB MICROBIOLOGY - GENERAL ORD ERABLES Final Result [facility] from Last 3 Months or Most Recently Relevant to Health Maintenance
--- OUTSIDE RECORDS SUMMARY | 2024-11-12 16:14 | XMS_ITS | Encounter Summary ---
Author Organization [facility] Address [address] [place] [address] Phone Care Team Providers Care Dry Cleaner Hand Name Role Phone Roslyn Moss MD Primary Care Provider [phone] Encounter Details Date Type Department Care Team (Late st Contact Info) Description 12/29/2013 Documentation [facility] [place] Family Medicine [address] [place], [place] [phone] Family Medicine, Physician [address] [place] [address] Social History Tobacco Use Types Packs/Day Years [...] on filedocumented in this encounter Care Teams Dry Cleaner Hand Relationship Specialty Start Date End Date Roslyn Moss MD [address] [place] [address] ALISA Bermudez [address] PCP - General 05/11/17 10/19/22 documented as of this encounter
--- OUTSIDE RECORDS SUMMARY | 2024-11-12 16:14 | XMS_ITS | Encounter Summary ---
Author Organization [facility] Address [address] [place] [address] Phone Care Team Providers Care Oim Consultant Name Role Phone Roslyn Moss MD Primary Care Provider [phone] Encounter Details Date Type Department Care Team (Late st Contact Info) Description 12/04/2012 Documentation [facility] [place] [address] [place], [place] [phone] Family Medicine, Physician [address] [place] [address] Social History Tobacco Use Types Packs/Day Years [...] on filedocumented in this encounter Care Teams Oim Consultant Relationship Specialty Start Date End Date Roslyn Moss MD [address] [place] [address] ALISA Bermudez [address] PCP - General 05/11/17 10/19/22 documented as of this encounter
--- OUTSIDE RECORDS SUMMARY | 2024-11-12 16:14 | XMS_ITS | Encounter Summary ---
Author Organization [facility] Address [address] [place] [address] Phone Care Team Providers Care Physical Security Specialist Name Role Phone Roslyn Moss MD Primary Care Provider [phone] Encounter Details Date Type Department Care Team (Late st Contact Info) Description 12/04/2012 Documentation [facility] [place] Family Medicine [address] [place], [place] [address] Family Medicine, Physician [address] [place] [address] Social History Tobacco Use Types Packs/Day Years [...] on filedocumented in this encounter Care Teams Physical Security Specialist Relationship Specialty Start Date End Date Roslyn Moss MD [address] [place] [address] ALISA Bermudez [address] PCP - General 05/11/17 10/19/22 documented as of this encounter
--- OUTSIDE RECORDS SUMMARY | 2024-11-12 16:14 | XMS_ITS | Encounter Summary ---
Author Organization [facility] Address [address] [place] [address] Phone Care Team Providers Care Lap Winding Machine Operator Name Role Phone Roslyn Moss MD Primary Care Provider [phone] Encounter Details Date Type Department Care Team (Late st Contact Info) Description 02/06/2013 Documentation [facility] [place] Family Medicine [address] [place] [address] Family Medicine, Physician [address] [place] [address] Social History Tobacco Use Types Packs/Day Years [...] on filedocumented in this encounter Care Teams Lap Winding Machine Operator Relationship Specialty Start Date End Date Roslyn Moss MD [address] [place] [address] ALISA Bermudez [address] PCP - General 05/11/17 10/19/22 documented as of this encounter
--- OUTSIDE RECORDS SUMMARY | 2024-11-12 16:14 | XMS_ITS | Encounter Summary ---
Author Organization [facility] Address [address] [place] [address] Phone Care Team Providers Care Rapid Extractor Operator Name Role Phone Roslyn Moss MD Primary Care Provider [phone] Encounter Details Date Type Department Care Team (Late st Contact Info) Description 04/12/2016 Documentation [facility] [place] [address] [place], [place] [phone] Family Medicine, Physician [address] [place] [address] Social History Tobacco Use Types Packs/Day Years [...] on filedocumented in this encounter Care Teams Rapid Extractor Operator Relationship Specialty Start Date End Date Roslyn Moss MD [address] [place] [address] ALISA Bermudez [address] PCP - General 05/11/17 10/19/22 documented as of this encounter
--- OUTSIDE RECORDS SUMMARY | 2024-11-12 16:14 | XMS_ITS | Encounter Summary ---
Author Organization [facility] Address [address] [place] [address] Phone Care Team Providers Care Licensing Coordinator Name Role Phone Roslyn Moss MD Primary Care Provider [phone] Encounter Details Date Type Department Care Team (Late st Contact Info) Description 06/13/2017 Conversion Encounter [facility] [place] [address] [place] [address] Social History Tobacco Use Types Packs/Day Years [...] on filedocumented in this encounter Care Teams Licensing Coordinator Relationship Specialty Start Date End Date Roslyn oMss MD [address] [place] [address] PCP - General 05/11/17 10/19/22 documented as of this encounter
--- OUTSIDE RECORDS SUMMARY | 2024-11-12 16:14 | XMS_ITS | Encounter Summary ---
Author Organization [facility] Address [address] [place] [address] Phone Care Team Providers Care Hand Brush Filler Name Role Phone Roslyn Moss MD Primary Care Provider [phone] Encounter Details Date Type Department Care Team (Late st Contact Info) Description 02/06/2013 Documentation [facility] [place] [address] [place] [address] Family Medicine, Physician [address] [place] [address] Social History Tobacco Use Types Packs/Day Years [...] on filedocumented in this encounter Care Teams Hand Brush Filler Relationship Specialty Start Date End Date Roslyn Moss MD [address] [place] [address] ALISA Bermudez [address] PCP - General 05/11/17 10/19/22 documented as of this encounter
--- OUTSIDE RECORDS SUMMARY | 2024-11-12 16:14 | XMS_ITS | Encounter Summary ---
Author Organization [facility] Address [address] [place] [address] Phone Care Team Providers Care Sales Department Supervisor Name Role Phone Roslyn Moss MD Primary Care Provider [phone] Encounter Details Date Type Department Care Team (Late st Contact Info) Description 10/12/2014 Documentation [facility] [place] [address] [place], [place] [address] Family Medicine, Physician [address] [place] [address] Social History Tobacco Use Types Packs/Day Years [...] on filedocumented in this encounter Care Teams Sales Department Supervisor Relationship Specialty Start Date End Date Roslyn Moss MD [address] [place] [address] ALISA Bermudez [address] PCP - General 05/11/17 10/19/22 documented as of this encounter
--- OUTSIDE RECORDS SUMMARY | 2024-11-12 16:15 | XMS_ITS | Encounter Summary ---
Author Organization [facility] Address [address] [place] [address] Phone Care Team Providers Care Advertising Associate Name Role Phone Roslyn Moss MD Primary Care Provider [phone] Encounter Details Date Type Department Care Team (Late st Contact Info) Description 01/05/2012 Documentation [facility] [place] [address] [place] [address] Family Medicine, Physician [address] [place] [address] Social History Tobacco Use Types Packs/Day Years [...] on filedocumented in this encounter Care Teams Advertising Associate Relationship Specialty Start Date End Date Roslyn Moss MD [address] [place] [address] ALISA Bermudez [address] PCP - General 05/11/17 10/19/22 documented as of this encounter
--- OUTSIDE RECORDS SUMMARY | 2024-11-12 16:15 | XMS_ITS | Encounter Summary ---
Author Organization [facility] Address [address] [place] [address] Phone Care Team Providers Care Large Animal Veterinarian Name Role Phone Roslyn Moss MD Primary Care Provider [phone] Encounter Details Date Type Department Care Team (Late st Contact Info) Description 10/14/2014 Documentation [facility] [place] [address] [place], [place] [address] Family Medicine, Physician [address] [place] [address] Social History Tobacco Use Types Packs/Day Years [...] on filedocumented in this encounter Care Teams Large Animal Veterinarian Relationship Specialty Start Date End Date Roslyn Moss MD [address] [place] [address] ALISA Bermudez [address] PCP - General 05/11/17 10/19/22 documented as of this encounter
--- OUTSIDE RECORDS SUMMARY | 2024-11-12 16:15 | XMS_ITS | Encounter Summary ---
Author Organization [facility] Address [address] [place] [address] Phone Care Team Providers Care Dairy Feed Sales Consultant Name Role Phone Roslyn Moss MD Primary Care Provider Encounter Details Date Type Department Care Team (Late st Contact Info) Description 04/12/2016 Documentation [facility] [place] Family Medicine [address] [place], [place] [address] Family Medicine, Physician [address] [place] [address] Social History Tobacco Use Types Packs/Day Years [...] on filedocumented in this encounter Care Teams Dairy Feed Sales Consultant Relationship Specialty Start Date End Date Roslyn Moss MD [address] [place] [address] ALISA Bermudez [address] PCP - General 05/11/17 10/19/22 documented as of this encounter
--- OUTSIDE RECORDS SUMMARY | 2024-11-12 16:15 | XMS_ITS | Encounter Summary ---
Author Organization [facility] Address [address] [place] [address] Phone Care Team Providers Care Unit Trust Manager Name Role Phone Roslyn Moss MD Primary Care Provider [phone] Encounter Details Date Type Department Care Team (Late st Contact Info) Description 04/12/2016 Documentation [facility] [place] Family Medicine [address] [place], [place] [address] Family Medicine, Physician [address] [place] [address] Social History Tobacco Use Types Packs/Day Years [...] on filedocumented in this encounter Care Teams Unit Trust Manager Relationship Specialty Start Date End Date Roslyn Moss MD [address] [place] [address] ALISA Bermudez [address] PCP - General 05/11/17 10/19/22 documented as of this encounter
--- OUTSIDE RECORDS SUMMARY | 2024-11-12 16:15 | XMS_ITS | Encounter Summary ---
Author Organization [facility] Address [address] [place] [address] Phone Care Team Providers Care Singe Machine Operator Name Role Phone Roslyn Moss MD Primary Care Provider [phone] Encounter Details Date Type Department Care Team (Late st Contact Info) Description 10/14/2014 Documentation [facility] [place] [address] [place], [place] [address] Family Medicine, Physician [address] [place] [address] Social History Tobacco Use Types Packs/Day Years [...] on filedocumented in this encounter Care Teams Singe Machine Operator Relationship Specialty Start Date End Date Roslyn Moss MD [address] [place] [address] ALISA Bermudez [address] PCP - General 05/11/17 10/19/22 documented as of this encounter
--- OUTSIDE RECORDS SUMMARY | 2024-11-12 16:15 | XMS_ITS | Encounter Summary ---
Author Organization [facility] Address [address] [place] [address] Phone Care Team Providers Care Saw Operator Name Role Phone Roslyn Moss MD Primary Care Provider [phone] Encounter Details Date Type Department Care Team (Late st Contact Info) Description 09/25/2016 Documentation [facility] [place] [address] [place], [place] [address] Family Medicine, Physician [address] [place] [address] Social History Tobacco Use Types Packs/Day Years [...] on filedocumented in this encounter Care Teams Saw Operator Relationship Specialty Start Date End Date Roslyn Moss MD [address] [place] [address] ALISA Bermudez [address] PCP - General 05/11/17 10/19/22 documented as of this encounter
--- OUTSIDE RECORDS SUMMARY | 2024-11-12 16:15 | XMS_ITS | Encounter Summary ---
Author Organization [facility] Address [address] [place] [address] Phone Care Team Providers Care Pathology Technologist Name Role Phone Roslyn Moss MD Primary Care Provider [phone] Encounter Details Date Type Department Care Team (Late st Contact Info) Description 10/18/2012 Documentation [facility] [place] [address] [place], [place] [address] Family Medicine, Physician [address] [place] [address] Social History Tobacco Use Types Packs/Day Years [...] on filedocumented in this encounter Care Teams Pathology Technologist Relationship Specialty Start Date End Date Roslyn Moss MD [address] [place] [address] ALISA Bermudez [address] PCP - General 05/11/17 10/19/22 documented as of this encounter
--- OUTSIDE RECORDS SUMMARY | 2024-11-12 16:15 | XMS_ITS | Encounter Summary ---
Author Organization [facility] Address [address] [place] [address] Phone Care Team Providers Care Professor Of Public Administration Name Role Phone Roslyn Moss MD Primary Care Provider [phone] Encounter Details Date Type Department Care Team (Late st Contact Info) Description 02/18/2010 Documentation [facility] [place] Family [place] [address] [place] [address] Family Medicine, Physician [address] [place] [address] Social History Tobacco Use Types Packs/Day Years [...] on filedocumented in this encounter Care Teams Professor Of Public Administration Relationship Specialty Start Date End Date Roslyn Moss MD [address] [place] [address] ALISA Bermudez [address] PCP - General 05/11/17 10/19/22 documented as of this encounter
--- OUTSIDE RECORDS SUMMARY | 2024-11-12 16:15 | XMS_ITS | Encounter Summary ---
Author Organization [facility] Address [address] [place] [address] Phone Care Team Providers Care Data Entry Email Processor Name Role Phone Roslyn Moss MD Primary Care Provider [phone] Encounter Details Date Type Department Care Team (Late st Contact Info) Description 10/14/2014 Documentation [facility] Family Medicine [address] [place], [place] [phone] Family Medicine, Physician [address] [place] [address] Social History Tobacco Use Types Packs/Day Years [...] on filedocumented in this encounter Care Teams Data Entry Email Processor Relationship Specialty Start Date End Date Roslyn Moss MD [address] [place] [address] ALISA Bermudez [address] PCP - General 05/11/17 10/19/22 documented as of this encounter
--- OUTSIDE RECORDS SUMMARY | 2024-11-12 16:15 | XMS_ITS | Encounter Summary ---
Author Organization [facility] Address [address] [place] [address] Phone Care Team Providers Care Hat Blocking Machine Operator Name Role Phone Roslyn Moss MD Primary Care Provider [phone] Encounter Details Date Type Department Care Team (Late st Contact Info) Description 11/22/2016 Documentation [facility] [place] [address] [place], [place] [id number] Family Medicine, Physician [address] [place] [address] Social History Tobacco Use Types Packs/Day Years [...] on filedocumented in this encounter Care Teams Hat Blocking Machine Operator Relationship Specialty Start Date End Date Roslyn Moss MD [address] [place] [address] ALISA Bermudez [address] PCP - General 05/11/17 10/19/22 documented as of this encounter
[2024-11-13 07:23] LABS: CT PCR NOT DETECTED (Not Detect.); NG PCR NOT DETECTED (Not Detect.)
[2024-11-13 13:31] LABS: Bacterial Vaginosis PCR NEGATIVE (Negative); Candida Group PCR NOT DETECTED (Not Detect); Candida glab krusei PCR NOT DETECTED (Not Detect); Trichomonas vaginalis PCR NOT DETECTED (Not Detect)
== END 2024-11-12 13:54 | disposition home or self-care (01) ==
LOC: HO.LAB 13:53
PROVIDERS: Visit Provider Advanced Practice Midwife
DX: Z01.419 Encounter for gynecological examination (general) (routine) without abnormal findings (principal); N89.8 Other specified noninflammatory disorders of vagina; Z20.2 Contact with and (suspected) exposure to infections with a predominantly sexual mode of transmission; N64.52 Nipple discharge
CPT/HCPCS: 81515; 87491; 87591; 99385; 99459

== ENCOUNTER 2024-11-12 15:17 | Outpatient (REF) | payer OTHER, SELFPAY | END 2024-11-12 15:18 | disposition home or self-care (01) | LOC: HO.LNP 15:17 | PROVIDERS: Visit Provider Advanced Practice Midwife | DX: Z00.00 Encounter for general adult medical examination without abnormal findings (principal) | CPT/HCPCS: 88175 ==

== ENCOUNTER → 2024-11-20 13:18 | Outpatient (REF) | payer OTHER, SELFPAY ==
--- OUTSIDE RECORDS SUMMARY | 2024-11-20 14:12 | XMS_ITS | Clinical Summary ---
Author Organization [facility] Address [address] [place] [address] Phone Care Team Providers Care Open Hearth Door Liner Name Role Phone Unavailable Primary Care Provider [...] of Autism, No family history of Sudden /SD under age 55, No family history of [...] Completed 01/05/2020, 07/04/2019 Procedures * Due to [place] [email or web address] law, this organization might not be sharing sensitive test results. Procedure Name Priority Date/Time Associated Diagnosis Comments CHLAMYDIA AND GONORRHEA, AMPLIFIED Routine 12/21/2020 9:06 AM EDT Screening examination for bacterial and spirochetal disease from Last 3 Months or Most Recently Relevant to Health Maintenance Results * Due to [place] [email or web address] law, this organization might not be sharing sensitive test results. * Chlamydia and Gonorrhoea, Amplified (12/21/2020 9:06 AM EDT) Chlamydia Trachomatis, DNA Probe NEGATIVE (NEG) [facility] Comment: No Chlamydia Trachomatis RNA detected in this patient's sample ? (REFERENCE RANGE/NORMAL VALUE: NOT DETECTED) ? Note: This test uses auto motor mechanic- mediated amplification method to detect rRNA from C. Trachomatis URINE GC AMP PROBE NEGATIVE (NEG) [facility] Comment: No Neisseria Gonorrhoeae RNA detected in this patient's sample ? (REFERENCE RANGE/NORMAL VALUE: NOT DETECTED) ? NOTE: This test uses auto motor mechanic-mediated amplification method to detect rRNA from N.Gonorrhoeae. [...] without risk of sexual abuse. Consult the [facility] if needed. Contact phone number . Therapeutic failure or success cannot be determined with the Aptima Combo2 assay since nucleic acid may persist following appropriate antimicrobial therapy. The Centers for Disease Control and Prevention (CDC) recommends confirmatory retesting using culture or a different nucleic acid amplification test when positive results occur, if indicated. Testing performed or reported by [facility], a Service of [facility], [address] [place] [address] Bipin Eugene MD, Mortgage Loan Computation Clerk Urine 12/21/2020 9:06 AM EDT 12/21/2020 6:58 PM EDT us Roslyn Moss MD LAB MICROBIOLOGY - GENERAL ORD ERABLES Final Result [facility] from Last 3 Months or Most Recently Relevant to Health Maintenance
--- OUTSIDE RECORDS SUMMARY | 2024-11-20 14:12 | XMS_ITS | Encounter Summary ---
Author Organization [facility] Address [address] [place] [address] Phone Care Team Providers Care Mobile Ui Designer Name Role Phone Roslyn Moss MD Primary Care Provider [phone] Encounter Details Date Type Department Care Team (Late st Contact Info) Description 01/05/2012 Documentation [facility] [address] [place] [address] Family Medicine, Physician [address] [place] [address] Social History Tobacco Use Types Packs/Day Years [...] on filedocumented in this encounter Care Teams Mobile Ui Designer Relationship Specialty Start Date End Date Roslyn Moss MD [address] [place] [address] ALISA Bermudez [address] PCP - General 05/11/17 10/19/22 documented as of this encounter
--- OUTSIDE RECORDS SUMMARY | 2024-11-20 14:12 | XMS_ITS | Encounter Summary ---
Author Organization [facility] Address [address] [place] [address] Phone Care Team Providers Care Residence Supervisor Name Role Phone Roslyn Moss MD Primary Care Provider [phone] Encounter Details Date Type Department Care Team (Late st Contact Info) Description 06/05/2013 Documentation [facility] Family Medicine [address] [place] [address] Family Medicine, Physician [address] [place] [address] Social History Tobacco Use Types Packs/Day Years [...] on filedocumented in this encounter Care Teams Residence Supervisor Relationship Specialty Start Date End Date Roslyn Moss MD [address] [place] [address] ALISA Bermudez [address] PCP - General 05/11/17 10/19/22 documented as of this encounter
--- OUTSIDE RECORDS SUMMARY | 2024-11-20 14:12 | XMS_ITS | Encounter Summary ---
Author Organization [facility] Address [address] [place] [address] Phone Care Team Providers Care Business Trainer Name Role Phone Roslyn Moss MD Primary Care Provider [phone] Encounter Details Date Type Department Care Team (Late st Contact Info) Description 06/13/2017 Conversion Encounter [facility] [place] [address] [place] [address] Social History Tobacco Use Types Packs/Day Years [...] on filedocumented in this encounter Care Teams Business Trainer Relationship Specialty Start Date End Date Roslyn Moss MD [address] [place] [address] PCP - General 05/11/17 10/19/22 documented as of this encounter
--- OUTSIDE RECORDS SUMMARY | 2024-11-20 14:12 | XMS_ITS | Encounter Summary ---
Author Organization [facility] Address [address] [place] [address] Phone Care Team Providers Care Sales Development Manager Name Role Phone Roslyn Moss MD Primary Care Provider [phone] Encounter Details Date Type Department Care Team (Late st Contact Info) Description 10/14/2014 Documentation [facility] Family Medicine [address] [place], [place] [phone] Family Medicine, Physician [address] [place] [address] Social History Tobacco Use Types Packs/Day Years [...] filedocumented in this encounter Care Teams Sales Development Manager Relationship Specialty Start Date End Date Roslyn Moss MD [address] [place] [address] ALISA Bermudez [address] PCP - General 05/11/17 10/19/22 documented as of this encounter
--- OUTSIDE RECORDS SUMMARY | 2024-11-20 14:12 | XMS_ITS | Encounter Summary ---
Author Organization [facility] Address [address] [place] [address] Phone Care Team Providers Care Caul Fat Puller Name Role Phone Roslyn Moss MD Primary Care Provider [phone] Encounter Details Date Type Department Care Team (Late st Contact Info) Description 12/04/2012 Documentation [facility] [place] [address] [place], [place] [id number] Family Medicine, Physician [address] [place] [address] Social History Tobacco Use Types Packs/Day Years [...] on filedocumented in this encounter Care Teams Caul Fat Puller Relationship Specialty Start Date End Date Roslyn Moss MD [address] [place] [address] ALISA Bermudez [address] PCP - General 05/11/17 10/19/22 documented as of this encounter
--- OUTSIDE RECORDS SUMMARY | 2024-11-20 14:12 | XMS_ITS | Encounter Summary ---
Author Organization [facility] Address [address] [place] [address] Phone Care Team Providers Care Nursing Student Name Role Phone Roslyn Moss MD Primary Care Provider [phone] Encounter Details Date Type Department Care Team (Late st Contact Info) Description 10/18/2012 Documentation [facility] [place] Family Medicine [address] [place], [place] [id number] Family Medicine, Physician [address] [place] [address] Social History Tobacco Use Types Packs/Day Years [...] on filedocumented in this encounter Care Teams Nursing Student Relationship Specialty Start Date End Date Roslyn Moss MD [address] [place] [address] ALISA Bermudez [address] PCP - General 05/11/17 10/19/22 documented as of this encounter
--- OUTSIDE RECORDS SUMMARY | 2024-11-20 14:12 | XMS_ITS | Encounter Summary ---
Author Organization [facility] Address [address] [place] [address] Phone Care Team Providers Care Bank Teller Name Role Phone Roslyn Moss MD Primary Care Provider [phone] Encounter Details Date Type Department Care Team (Late st Contact Info) Description 02/06/2013 Documentation [facility] [address] [place] [address] Family Medicine, Physician [address] [place] [address] Social History Tobacco Use Types Packs/Day Years [...] on filedocumented in this encounter Care Teams Bank Teller Relationship Specialty Start Date End Date Roslyn Moss MD [address] [place] [address] ALISA Bermudez [address] PCP - General 05/11/17 10/19/22 documented as of this encounter
--- OUTSIDE RECORDS SUMMARY | 2024-11-20 14:12 | XMS_ITS | Encounter Summary ---
Author Organization [facility] Address [address] [place] [address] Phone Care Team Providers Care Mechatronics Engineer Name Role Phone Roslyn Moss MD Primary Care Provider [phone] Encounter Details Date Type Department Care Team (Late st Contact Info) Description 12/04/2012 Documentation [facility] [place] Family Medicine [address] [place], [place] [id number] Family Medicine, Physician [address] [place] [address] Social History Tobacco Use Types Packs/Day Years [...] on filedocumented in this encounter Care Teams Mechatronics Engineer Relationship Specialty Start Date End Date Roslyn Moss MD [address] [place] [address] ALISA Bermudez [address] PCP - General 05/11/17 10/19/22 documented as of this encounter
--- OUTSIDE RECORDS SUMMARY | 2024-11-20 14:12 | XMS_ITS | Encounter Summary ---
Author Organization [facility] Address [address] [place] [address] Phone Care Team Providers Care Traffic Personnel Supervisor Name Role Phone Roslyn Moss MD Primary Care Provider [phone] Encounter Details Date Type Department Care Team (Late st Contact Info) Description 10/14/2014 Documentation [facility] [place] [address] [place], [place] [phone] Family Medicine, Physician [address] [place] [address] Social History Tobacco Use Types Packs/Day Years [...] on filedocumented in this encounter Care Teams Traffic Personnel Supervisor Relationship Specialty Start Date End Date Roslyn Moss MD [address] [place] [address] ALISA Bermudez [address] PCP - General 05/11/17 10/19/22 documented as of this encounter
--- OUTSIDE RECORDS SUMMARY | 2024-11-20 14:12 | XMS_ITS | Encounter Summary ---
Author Organization [facility] Address [address] [place] [address] Phone Care Team Providers Care Editor Managing Newspaper Name Role Phone Roslyn Moss MD Primary Care Provider [phone] Encounter Details Date Type Department Care Team (Late st Contact Info) Description 04/12/2016 Documentation [facility] [address] [place], [place] [phone] Family Medicine, Physician [address] [place] [address] Social History Tobacco Use Types Packs/Day Years [...] on filedocumented in this encounter Care Teams Editor Managing Newspaper Relationship Specialty Start Date End Date Roslyn Moss MD [address] [place] [address] ALISA Bermudez [address] PCP - General 05/11/17 10/19/22 documented as of this encounter
--- OUTSIDE RECORDS SUMMARY | 2024-11-20 14:12 | XMS_ITS | Encounter Summary ---
Author Organization [facility] Address [address] [place] [address] Phone Care Team Providers Care Pipelayer Name Role Phone Roslyn Moss MD Primary Care Provider [phone] Encounter Details Date Type Department Care Team (Late st Contact Info) Description 09/25/2016 Documentation [facility] Family Medicine [address] [place], [place] [phone] Family Medicine, Physician [address] [place] [address] Social History Tobacco Use Types Packs/Day Years [...] on filedocumented in this encounter Care Teams Pipelayer Relationship Specialty Start Date End Date Roslyn Moss MD [address] [place] [address] ALISA Bermudez [address] PCP - General 05/11/17 10/19/22 documented as of this encounter
--- OUTSIDE RECORDS SUMMARY | 2024-11-20 14:12 | XMS_ITS | Encounter Summary ---
Author Organization [facility] Address [address] [place] [address] Phone Care Team Providers Care Timber Buyer Name Role Phone Roslyn Moss MD Primary Care Provider [phone] Encounter Details Date Type Department Care Team (Late st Contact Info) Description 10/14/2014 Documentation [facility] [place] [address] [place], [place] [phone] Family Medicine, Physician [address] [place] [address] Social History Tobacco Use Types Packs/Day Years [...] on filedocumented in this encounter Care Teams Timber Buyer Relationship Specialty Start Date End Date Roslyn Moss MD [address] [place] [address] ALISA Bermudez [address] PCP - General 05/11/17 10/19/22 documented as of this encounter
--- OUTSIDE RECORDS SUMMARY | 2024-11-20 14:12 | XMS_ITS | Encounter Summary ---
Author Organization [facility] Address [address] [place] [address] Phone Care Team Providers Care Stave Cutter Name Role Phone Roslyn Moss MD Primary Care Provider [phone] Encounter Details Date Type Department Care Team (Late st Contact Info) Description 04/12/2016 Documentation [facility] Family Medicine [address] [place], [place] [phone] Family Medicine, Physician [address] [place] [address] Social History Tobacco Use Types Packs/Day Years [...] on filedocumented in this encounter Care Teams Stave Cutter Relationship Specialty Start Date End Date Roslyn Moss MD [address] [place] [address] ALISA Bermudez [address] PCP - General 05/11/17 10/19/22 documented as of this encounter
--- OUTSIDE RECORDS SUMMARY | 2024-11-20 14:12 | XMS_ITS | Encounter Summary ---
Author Organization [facility] Address [address] [place] [address] Phone Care Team Providers Care Insurance Investigator Name Role Phone Roslyn Moss MD Primary Care Provider [phone] Encounter Details Date Type Department Care Team (Late st Contact Info) Description 12/29/2013 Documentation [facility] [place] Family Medicine [address] [place], [place] [phone] Family Medicine, Physician [address] [place] [address] Social History Tobacco Use Types Packs/Day Years [...] on filedocumented in this encounter Care Teams Insurance Investigator Relationship Specialty Start Date End Date Roslyn Moss MD [address] [place] [address] ALISA Bermudez [address] PCP - General 05/11/17 10/19/22 documented as of this encounter
--- OUTSIDE RECORDS SUMMARY | 2024-11-20 14:12 | XMS_ITS | Encounter Summary ---
Author Organization [facility] Address [address] [place] [address] Phone Care Team Providers Care Portable Canteen Operator Name Role Phone Roslyn Moss MD Primary Care Provider [phone] Encounter Details Date Type Department Care Team (Late st Contact Info) Description 12/29/2013 Documentation [facility] [place] Family Medicine [address] [place], [place] [phone] Family Medicine, Physician [address] [place] [address] Social History Tobacco Use Types Packs/Day Years [...] on filedocumented in this encounter Care Teams Portable Canteen Operator Relationship Specialty Start Date End Date Roslyn Moss MD [address] [place] [address] ALISA Bermudez [address] PCP - General 05/11/17 10/19/22 documented as of this encounter
--- OUTSIDE RECORDS SUMMARY | 2024-11-20 14:12 | XMS_ITS | Encounter Summary ---
Author Organization [facility] Address [address] [place] [address] Phone Care Team Providers Care Camp Head Counselor Name Role Phone Roslyn Moss MD Primary Care Provider Encounter Details Date Type Department Care Team (Late st Contact Info) Description 12/04/2012 Documentation [facility] [place] Family Medicine [address] [place], [place] [phone] Family Medicine, Physician [address] [place] [address] Social History Tobacco Use Types Packs/Day Years [...] on filedocumented in this encounter Care Teams Camp Head Counselor Relationship Specialty Start Date End Date Roslyn Moss MD [address] [place] [address] ALISA Bermudez [address] PCP - General 05/11/17 10/19/22 documented as of this encounter
--- OUTSIDE RECORDS SUMMARY | 2024-11-20 14:12 | XMS_ITS | Encounter Summary ---
Author Organization [facility] Address [address] [place] [address] Phone Care Team Providers Care Chef De Partie Name Role Phone Roslyn Moss MD Primary Care Provider [phone] Encounter Details Date Type Department Care Team (Late st Contact Info) Description 10/12/[address] [facility] [place] Family Medicine [address] [place], [place] [phone] Family Medicine, Physician [address] [place] [address] Social History Tobacco Use Types Packs/Day Years [...] on filedocumented in this encounter Care Teams Chef De Partie Relationship Specialty Start Date End Date Roslyn Moss MD [address] [place] [address] ALISA Bermudez [address] PCP - General 05/11/17 10/19/22 documented as of this encounter
--- OUTSIDE RECORDS SUMMARY | 2024-11-20 14:12 | XMS_ITS | Encounter Summary ---
Author Organization [facility] Address [address] [place] [address] Phone Care Team Providers Care Jacker Name Role Phone Roslyn Moss MD Primary Care Provider [phone] Encounter Details Date Type Department Care Team (Late st Contact Info) Description 02/06/2013 Documentation [facility] [place] [address] [place] [address] Family Medicine, Physician [address] [place] [address] Social History Tobacco Use Types Packs/Day Years [...] on filedocumented in this encounter Care Teams Jacker Relationship Specialty Start Date End Date Roslyn Moss MD [address] [place] [address] ALISA Bermudez [address] PCP - General 05/11/17 10/19/22 documented as of this encounter
--- OUTSIDE RECORDS SUMMARY | 2024-11-20 14:12 | XMS_ITS | Encounter Summary ---
Author Organization [facility] Address [address] [place] [address] Phone Care Team Providers Care Auditor In Charge Name Role Phone Roslyn Moss MD Primary Care Provider [phone] Encounter Details Date Type Department Care Team (Late st Contact Info) Description 04/12/2016 Documentation [facility] Family Medicine [address] [place], [place] [id number] Family Medicine, Physician [address] [place] [address] Social History Tobacco Use Types Packs/Day Years [...] on filedocumented in this encounter Care Teams Auditor In Charge Relationship Specialty Start Date End Date Roslyn Moss MD [address] [place] [address] ALISA Bermudez [address] PCP - General 05/11/17 10/19/22 documented as of this encounter
--- OUTSIDE RECORDS SUMMARY | 2024-11-20 14:12 | XMS_ITS | Encounter Summary ---
Author Organization [facility] Address [address] [place] [address] Phone Care Team Providers Care Food Assembler Commissary Kitchen Name Role Phone Roslyn Moss MD Primary Care Provider [phone] Encounter Details Date Type Department Care Team (Late st Contact Info) Description 02/18/2010 Documentation [facility] [address] [place] [address] Family Medicine, Physician [address] [place] [address] Social History Tobacco Use Types Packs/Day Years [...] on filedocumented in this encounter Care Teams Food Assembler Commissary Kitchen Relationship Specialty Start Date End Date Roslyn Moss MD [address] [place] [address] ALISA Bermudez [address] PCP - General 05/11/17 10/19/22 documented as of this encounter
--- OUTSIDE RECORDS SUMMARY | 2024-11-20 14:12 | XMS_ITS | Encounter Summary ---
Author Organization [facility] Address [address] [place] [address] Phone Care Team Providers Care Sushi Chef Name Role Phone Roslyn Moss MD Primary Care Provider [phone] Encounter Details Date Type Department Care Team (Late st Contact Info) Description 11/22/2016 [place]ation [facility] [address] [place], [place] [phone] Family Medicine, Physician [address] [place] [address] Social History Tobacco Use Types Packs/Day Years [...] on filedocumented in this encounter Care Teams Sushi Chef Relationship Specialty Start Date End Date Roslyn Moss MD [address] [place] [address] ALISA Bermudez [address] PCP - General 05/11/17 10/19/22 documented as of this encounter
== END ==
LOC: HO.CARD 13:18
DX: R00.2 Palpitations (principal); G47.10 Hypersomnia, unspecified
CPT/HCPCS: 93242

== ENCOUNTER → 2024-11-20 13:26 | Outpatient (BNV) | payer OTHER, SELFPAY | PROVIDERS: Visit Provider Internal Medicine Cardiovascular Disease | DX: R00.0 Tachycardia, unspecified (principal) | CPT/HCPCS: 93244 ==

== ENCOUNTER 2024-11-26 08:45 | Outpatient (AMB) | payer OTHER, SELFPAY ==
[2024-11-26 08:50] VITALS: BP 114/68; PULSE 74; O2SAT 98; BMI 28.5
--- NOTE | 2024-11-26 08:50 | MHC.PC.OV ---
Vital Signs 11/26/24 08:50 Height 5 ft 4 in Weight 166 lb BMI 28.5 BP 114/68 Blood Pressure Location Lt brachial Position Sitting Pulse 74 Pulse Source Pulse Oximeter Pulse Oximetry (%) 98 Oxygen Delivery Method Room Air Intake Visit Reasons: teeth pain/infection Allergies No Known Allergies Allergy (Verified 11/26/24 09:26) Medication List - Last Reconciled 11/26/24 by Anita Kingston PA-C cholecalciferol (vitamin D3) 25 mcg PO DAILY Tobacco use date assessed: 11/26/24 Dental Screening Dental Screen Date: 11/26/24 Did you have a dental visit in the last 12 months?: Yes Did you have a dental problem in the last 6 months where you did not have access to dental care?: No Was dental information given to patient?: Patient has dentist HPI teeth pain/infection HPI Details 24-year-old female with no relevant past medical history coming to the office for acute problem. Presenting with postoperative dental bleeding and pain. Complains of persistent bleeding from the site of a dental procedure performed over a year ago. Experienced post-procedural bleeding initially advised to be part of the healing process, but persists to this day. Denotes significant pain when eating on the affected side and during tooth brushing. Evaluated by multiple dentists; x-rays consistently demonstrate no clear cause of bleeding; no definitive treatment plan provided despite repeated consultations. Prescribed a course of oral amoxicillin in October for presumed infection, resulting in slight relief of jaw pain. Expresses frustrations with ongoing discomfort and considers tooth extraction. [facility] Medical History Acne Family History Mother No problems noted. Father Sleep apnea Brother No problems noted. Sister No problems noted. Social History Housing: Apartment Alcohol intake: current Patient Tobacco Use Status: Never used Tobacco Tobacco use type: Cigarette e-Cigarette/Vaping Use: Former Use Second Hand Smoke Exposure: No Substance Use Type: Marijuana service: No Current occupational status: employed Current occupation: left hand Sexual orientation: Straight/Heterosexual Gender identity: Female Cognitive needs: No Hearing needs: No Vision needs: Yes Female Reproductive History Menstrual Age of Menarche: 12 Questionnaire PHQ-9 Over the last 2 weeks, how often have you been bothered by any of the following problems? 1. Little interest or pleasure in doing things: not at all 2. Feeling down, depressed, or hopeless: not at all 3. Trouble falling or staying asleep, or sleeping too much: not at all 4. Feeling tired or having little energy: not at all 5. Poor appetite or overeating: not at all 6. Feeling bad about yourself - or that you are a failure or have let yourself or your family down: not at all 7. Trouble concentrating on things, such as reading the newspaper or watching television: not at all 8. Moving or speaking so slowly that other people could have noticed. Or the opposite - being so fidgety or restless that you have been moving around a lot more than usual: not at all 9. Thoughts that you would be better off or of hurting yourself in some way: not at all Total score: 0 Depression Screening Interpretation: Negative Depression Screening Done: Yes 34001 - PHQ-9 Billing: Yes Source: Developed by Drs. Sohail Cunningham, Jennie Armendariz, Juice Blanco and colleagues, with an educational gopal from [employer]. Thrive Questionnaire Date Thrive assessed: 11/26/24 I am a: Patient What is your living situation today?: I have a steady place to live Within the past 12 months, did the food you bought not last and you didn't have the money to get more?: I choose not to answer this question Within the past 12 months, did you worry whether your food would run out before you got money to buy more?: I choose not to answer this question Do you have trouble paying for medicines?: No Do you have trouble getting transportation to medical appointments?: No Do you have trouble paying your heating and electricity bill?: I choose not to answer this question Do you have trouble taking care of your child, family member or friend?: No Do you have trouble with day-to-day activities such as bathing, preparing meals, shopping, managing finances, etc.?: No Are you currently unemployed and looking for a job?: No Are you interested in more education?: No Please select the resources that you would like help with: None Currently or been in a relationship where the following occur: No concerns reported THRIVE Score: 0 AUDIT C Alcohol Use Questionnaire (AUDIT-C) 1. How often do you have a drink containing alcohol?: Never 3. How often do you have six or more drinks on one occasion?: Never Total Score: 0 MICHELLE-7 AMB Questionnaire MICHELLE-7 Date MICHELLE - 7 assessed: 10/09/24 Source: Developed by Drs. Sohail Cunningham, Jennie Armendariz, Juice Blanco and colleagues, with an educational gopal from [employer]. Review of Systems Const Denies body aches, Denies chills, Denies fever(s), Denies headache(s) and Denies poor appetite Eyes Reports no additional complaints ENT Denies dysphagia, Denies dizziness, Denies headache(s) and Denies odynophagia Card Denies chest pain, Denies lightheadedness and Denies dyspnea Resp Denies cough and Denies dyspnea GI Reports no additional complaints, Denies dysphagia and Denies odynophagia Reports no additional complaints Musc Reports no additional complaints and Denies abnormal gait Skin/Breast Reports system reviewed and no additional complaints, except as documented Neuro Denies abnormal gait, Denies dizziness and Denies headache(s) Psych Reports no additional complaints Physical exam (Primary Care) Vital Signs: Last Vital Signs Pulse 74 11/26/24 08:50 BP 114/68 11/26/24 08:50 Pulse Ox 98 11/26/24 08:50 Oxygen Delivery Method Room Air 11/26/24 08:50 BMI result Body Mass Index 28.5 Tobacco/Smoking Status: Tobacco use Status Tobacco use date assessed 11/26/24 11/26/24 08:56 Patient Tobacco Use Status Never used Tobacco 11/26/24 08:56 Tobacco use type Cigarette 11/26/24 08:56 e-Cigarette/Vaping Use Former Use 11/26/24 08:56 PHQ-9: PHQ-9 Score PHQ-9: Total score 0 11/26/24 08:56 Depression Screening Interpretation: Negative Thrive Assessment: Date of Thrive Assessment Date Thrive assessed 11/26/24 11/26/24 08:56 Currently or been in a relationship where the following occur: No concerns reported Const General: cooperative, healthy appearing, comfortable and no acute distress Orientation/consciousness: patient oriented x3 HENMT Other: No tenderness to palpation over jaw, submandibular area or TMJ Head: Yes normocephalic Ears: hearing grossly normal bilaterally, TM's normal bilaterally and EAC's normal General nose exam: Normal external nose present Mouth: Normal oral and palatal mucosa present, oropharynx normal and No abnormal TMJ Teeth and gingiva: dentition normal and gingiva normal Eyes General: appearance normal, both eyes and all related structures Conjunctivae: conjunctivae normal Neck Neck: Yes full ROM and Yes no lymphadenopathy Resp Effort & Inspection: normal respiratory effort Auscultation: clear to auscultation bilaterally, no crackles, no rales, no rhonchi and no wheezes Cardio Rate: regular rate Rhythm: regular rhythm Skin General skin exam: no rashes or lesions noted Neuro General: patient oriented x3 Gait exam (Neuro): Normal gait present Extrem General: Yes normal to inspection, Yes full ROM and No edema Psych Affect: normal affect Attitude: cooperative Insight: Good insight present (Psych) Judgement: Good judgement present (Psych) Coding Level of Care Code Est Pt Level 3 (11120) Diagnoses Toothache K08.89 Additional Codes PHQ-9 - 81507 - PHQ-9 Billing: Yes ([id number]) Assessment & Plan Assessment & Plan (1) Toothache: Code(s): K08.89 - Other specified disorders of teeth and supporting structures Category: Medical Plan: The patient presents with persistent symptoms following a dental procedure, likely related to unresolved periodontal issues. Despite previous prescriptions of antibiotics and repeated evaluations, further diagnostic confirmation of periodontal health is advised given the continued symptomatology. Recommendation entails seeking specialty dental care from a new provider or pig farm manager for comprehensive periodontal evaluation. Pending diagnosis, a discussion regarding potentially extracting the tooth or alternative management should ensue. The patient is recommended to monitor symptoms closely, particularly for signs of infection, and to avoid chronic antibiotic use without addressing the root cause of the bleeding and pain. Plan Patient was informed and verbally consented to the use of an ambient scribe for clinic note documentation during this visit. This note was constructed using voice recognition software. While every effort has been made to ensure accuracy and bushel worker, still areas may have been included sometimes these areas may affect the content or meeting of the given symptoms. Total time spent caring for the patient today was 20 minutes. This includes time spent before the visit reviewing the chart, time spent during the visit, and time spent after the visit and documentation.
== END 2024-11-26 09:26 | disposition home or self-care (01) ==
DX: K08.89 Other specified disorders of teeth and supporting structures (principal)

== ENCOUNTER → 2024-11-26 08:45 | Outpatient (BNVA) | payer OTHER, SELFPAY | DX: K08.89 Other specified disorders of teeth and supporting structures (principal) | CPT/HCPCS: 96127; 99212 ==

== ENCOUNTER 2024-12-09 15:45 | Outpatient (AMB) | payer OTHER, SELFPAY ==
--- NOTE | 2024-12-09 15:46 | MHC.PC.OV ---
Intake Visit Reasons: f/u palpitations Manager Performance Improvement Required: No Medication Nurse: Not Required per policy Accompanied by: Self / Same As Patient Allergies No Known Allergies Allergy (Verified 12/09/24 16:16) Medication List - Last Reconciled 12/09/24 by Anita Kingston PA-C cholecalciferol (vitamin D3) 25 mcg PO DAILY Tobacco use date assessed: 11/26/24 Dental Screening Dental Screen Date: 11/26/24 HPI f/u palpitations HPI Details 24-year-old female with no relevant past medical history coming in for follow up.?Patient completed Holter monitor. Holter monitor showing sinus rhythm without significant pauses or arrhythmia. Patient tells us today she has no longer been having palpitations and while wearing the Holter monitor she did not have any episodes of palpitations. She does have 1 concern today of intermittent vaginal bleeding which has happened in the past and was seen by Gynecology for this concern and has recently begun again. She also notices the spotting with masturbation and intercourse. [facility] Medical History Acne Family History Mother No problems noted. Father Sleep apnea Brother No problems noted. Sister No problems noted. Social History Housing: Apartment Alcohol intake: current Patient Tobacco Use Status: Never used Tobacco Tobacco use type: Cigarette e-Cigarette/Vaping Use: Former Use Second Hand Smoke Exposure: No Substance Use Type: Marijuana service: No Current occupational status: employed Current occupation: left hand Sexual orientation: Straight/Heterosexual Gender identity: Female Cognitive needs: No Hearing needs: No Vision needs: Yes Female Reproductive History Menstrual Age of Menarche: 12 Questionnaire Thrive Questionnaire Date Thrive assessed: 11/26/24 MICHELLE-7 AMB Questionnaire MICHELLE-7 Date MICHELLE - 7 assessed: 10/09/24 Source: Developed by Drs. Sohial Cunningham, Jennie Armendariz, Juice Blanco and colleagues, with an educational gopal from [employer] Review of Systems Const Denies body aches, Denies chills, Denies fever(s), Denies headache(s) and Denies poor appetite Eyes Reports no additional complaints ENT Denies dizziness and Denies headache(s) Card Denies chest pain, Denies irregular heart rhythm, Denies lightheadedness and Denies dyspnea Resp Denies cough and Denies dyspnea Reports as per HPI Musc Reports no additional complaints and Denies abnormal gait Skin/Breast Reports system reviewed and no additional complaints, except as documented Neuro Denies abnormal gait, Denies dizziness and Denies headache(s) Psych Reports no additional complaints Physical exam (Primary Care) Vital Signs: Physical exam and vital signs not performed today due to nature of telehealth visit Tobacco/Smoking Status: Tobacco use Status Tobacco use date assessed 11/26/24 12/09/24 15:47 Patient Tobacco Use Status Never used Tobacco 12/09/24 15:47 Tobacco use type Cigarette 12/09/24 15:47 e-Cigarette/Vaping Use Former Use 12/09/24 15:47 Thrive Assessment: Date of Thrive Assessment Date Thrive assessed 11/26/24 12/09/24 15:47 Telehealth Telehealth Telehealth Platform: Telephone Location of provider rendering services: practice address Location of patient: address on file Patient Identification confirmed using: Name, : Yes Telehealth method: voice only Patient verbally consented to treatment: Yes Patient verbally consented to billing insurance company: Yes Patient informed of any privacy concerns related to visit: Yes Coding Level of Care Code Est Pt Level 3 (65225) Diagnoses Palpitations R00.2 Postcoital bleeding N93.0 Hypersomnolence G47.10 Assessment & Plan Assessment & Plan (1) Palpitations: Code(s): R00.2 - Palpitations Category: Medical Plan: Patient states the palpitations have stopped since 1 week prior to the Holter monitor. Advised patient to continue to monitor symptoms at this time and if the palpitations beginning and we can consider additional Holter monitor. (2) Postcoital bleeding: Code(s): N93.0 - Postcoital and contact bleeding Category: Medical Plan: Patient was seen in the past by Gynecology for postcoital bleeding which initially resolved and has resumed. Advised patient to reach out to gynecology to schedule appointment. (3) Hypersomnolence: Code(s): G47.10 - Hypersomnia, unspecified Category: Medical Plan: Patient completed sleep study test however can not find results in the chart. We will reach out to the sleep study lab to obtain these results and reach out to the patient with recommendations. Plan This note was constructed using voice recognition software. While every effort has been made to ensure accuracy and quality systems specialist, still areas may have been included sometimes these areas may affect the content or meeting of the given symptoms. Total time spent caring for the patient today was 15 minutes. This includes time spent before the visit reviewing the chart, time spent during the visit, and time spent after the visit and documentation.
--- OUTSIDE RECORDS SUMMARY | 2024-12-09 19:04 | XMS_ITS | Encounter Summary ---
Author Organization [facility] Address [address] [place] [address] Phone Care Team Providers Care Chief Catalyst Operator Name Role Phone Roslyn Moss MD Primary Care Provider [phone] Encounter Details Date Type Department Care Team (Late st Contact Info) Description 10/14/2014 Documentation [facility] [place] Family Medicine [address] [place], [place] [id number] Family Medicine, Physician [address] [place] [address] Social History Tobacco Use Types Packs/Day Years [...] filedocumented in this encounter Care Teams Chief Catalyst Operator Relationship Specialty Start Date End Date Roslyn Moss MD [address] [place] [address] ALISA Bermudez [id number] PCP - General 05/11/17 10/19/22 documented as of this encounter
--- OUTSIDE RECORDS SUMMARY | 2024-12-09 19:04 | XMS_ITS | Encounter Summary ---
Author Organization [facility] Address [address] [place] [address] Phone Care Team Providers Care Diplomatic Interpreter/Translator Name Role Phone Roslyn Moss MD Primary Care Provider [phone] Encounter Details Date Type Department Care Team (Late st Contact Info) Description 04/12/2016 Documentation [facility] [place] Family Medicine [address] [place], [place] [id number] Family Medicine, Physician [address] [place] [address] Social History Tobacco Use Types Packs/Day Years [...] on filedocumented in this encounter Care Teams Diplomatic Interpreter/Translator Relationship Specialty Start Date End Date Roslyn Moss MD [address] [place] [address] ALISA Bermudez [id number] PCP - General 05/11/17 10/19/22 documented as of this encounter
--- OUTSIDE RECORDS SUMMARY | 2024-12-09 19:04 | XMS_ITS | Encounter Summary ---
Author Organization [facility] Address [address] [place] [address] Phone Care Team Providers Care Supply Chain Director Name Role Phone Roslyn Moss MD Primary Care Provider [phone] Encounter Details Date Type Department Care Team (Late st Contact Info) Description 12/04/2012 Documentation [facility] [place] Family Medicine [address] [place] [address] Family Medicine, Physician [address] [place] [address] Social History Tobacco Use Types Packs/Day Years [...] on filedocumented in this encounter Care Teams Supply Chain Director Relationship Specialty Start Date End Date Roslyn Moss MD [address] [place] [address] ALISA Bermudez [id number] PCP - General 05/11/17 10/19/22 documented as of this encounter
--- OUTSIDE RECORDS SUMMARY | 2024-12-09 19:04 | XMS_ITS | Clinical Summary ---
Author Organization [facility] Address [address] [place] [phone] Phone Care Team Providers Care Bander Hand Name Role Phone Unavailable Primary Care Provider [...] of Autism, No family history of Sudden /GA under age 55, No family history of [...] Completed 01/05/2020, 07/04/2019 Procedures * Due to [place] [employer] [facility] law, this organization might not be sharing sensitive test results. Procedure Name Priority Date/Time Associated Diagnosis Comments CHLAMYDIA AND GONORRHEA, AMPLIFIED Routine 12/21/2020 9:06 AM EDT Screening examination for bacterial and spirochetal disease from Last 3 Months or Most Recently Relevant to Health Maintenance Results * Due to [place] [employer] [facility] law, this organization might not be sharing sensitive test results. * Chlamydia and Gonorrhoea, Amplified (12/21/2020 9:06 AM EDT) Chlamydia Trachomatis, DNA Probe NEGATIVE (NEG) [facility] Comment: No Chlamydia Trachomatis RNA detected in this patient's sample ? (REFERENCE RANGE/NORMAL VALUE: NOT DETECTED) ? Note: This test uses computer equipment repairer- mediated amplification method to detect rRNA from C. Trachomatis URINE GC AMP PROBE NEGATIVE (NEG) [facility] Comment: No Neisseria Gonorrhoeae RNA detected in this patient's sample ? (REFERENCE RANGE/NORMAL VALUE: NOT DETECTED) ? NOTE: This test uses computer equipment repairer-mediated amplification method to detect rRNA from N.Gonorrhoeae. [...] if indicated. Testing performed or reported by [facility], a Service of [facility], [address] [place] [address] Bipin Eugene MD, Rags Laborer Urine 12/21/2020 9:06 AM EDT 12/21/2020 6:58 PM EDT us Roslyn Moss MD LAB MICROBIOLOGY - GENERAL ORD ERABLES Final Result [facility] from Last 3 Months or Most Recently Relevant to Health Maintenance
--- OUTSIDE RECORDS SUMMARY | 2024-12-09 19:04 | XMS_ITS | Encounter Summary ---
Author Organization [facility] Address [address] [place] [address] Phone Care Team Providers Care Nerve Specialist Name Role Phone Roslyn Moss MD Primary Care Provider [phone] Encounter Details Date Type Department Care Team (Late st Contact Info) Description 12/04/2012 Documentation [facility] [place] [address] [place] [address] Family Medicine, Physician [address] [place] [address] Social History Tobacco Use Types Packs/Day Years [...] on filedocumented in this encounter Care Teams Nerve Specialist Relationship Specialty Start Date End Date Roslyn Moss MD [address] [place] [address] ALISA Bermudez [address] PCP - General 05/11/17 10/19/22 documented as of this encounter
--- OUTSIDE RECORDS SUMMARY | 2024-12-09 19:04 | XMS_ITS | Encounter Summary ---
Author Organization [facility] Address [address] [place] [address] Phone Care Team Providers Care Sheet Metal Mechanic Name Role Phone Roslyn Moss MD Primary Care Provider [phone] Encounter Details Date Type Department Care Team (Late st Contact Info) Description 06/05/2013 Documentation [facility] [place] Family Medicine [address] [place] [address] Family Medicine, Physician [address] [place] [address] Social History Tobacco Use Types Packs/Day Years [...] on filedocumented in this encounter Care Teams Sheet Metal Mechanic Relationship Specialty Start Date End Date Roslyn Moss MD [address] [place] [address] ALISA Bermudez [id number] PCP - General 05/11/17 10/19/22 documented as of this encounter
--- OUTSIDE RECORDS SUMMARY | 2024-12-09 19:04 | XMS_ITS | Encounter Summary ---
Author Organization [facility] Address [address] [place] [address] Phone Care Team Providers Care Box Cutter Name Role Phone Roslyn Moss MD Primary Care Provider [phone] Encounter Details Date Type Department Care Team (Late st Contact Info) Description 04/12/2016 Documentation [facility] [place] [address] [place], [place] [phone] Family Medicine, Physician [address] [place] [address] Social History Tobacco Use Types Packs/Day Years [...] on filedocumented in this encounter Care Teams Box Cutter Relationship Specialty Start Date End Date Roslyn Moss MD [address] [place] [address] ALISA Bermudez [address] PCP - General 05/11/17 10/19/22 documented as of this encounter
--- OUTSIDE RECORDS SUMMARY | 2024-12-09 19:04 | XMS_ITS | Encounter Summary ---
Author Organization [facility] Address [address] [place] [address] Phone Care Team Providers Care Sales And Marketing Specialist Name Role Phone Roslyn Moss MD Primary Care Provider [phone] Encounter Details Date Type Department Care Team (Late st Contact Info) Description 10/14/2014 Documentation [facility] [place] Family Medicine [address] [place], [place] [id number] Family Medicine, Physician [address] [place] [address] Social History Tobacco Use Types Packs/Day Years [...] filedocumented in this encounter Care Teams Sales And Marketing Specialist Relationship Specialty Start Date End Date Roslyn Moss MD [address] [place] [address] ALISA Bermudez [address] PCP - General 05/11/17 10/19/22 documented as of this encounter
--- OUTSIDE RECORDS SUMMARY | 2024-12-09 19:04 | XMS_ITS | Encounter Summary ---
Author Organization [facility] Address [address] [place] [phone] Phone Care Team Providers Care Water Tender Name Role Phone Roslyn Moss MD Primary Care Provider [phone] Encounter Details Date Type Department Care Team (Late st Contact Info) Description 06/13/2017 Conversion Encounter [facility] [place] [address] [place] [address] Social History Tobacco Use Types Packs/Day Years [...] filedocumented in this encounter Care Teams Water Tender Relationship Specialty Start Date End Date Roslyn Moss MD [address] [place] [address] PCP - General 05/11/17 10/19/22 documented as of this encounter
--- OUTSIDE RECORDS SUMMARY | 2024-12-09 19:04 | XMS_ITS | Encounter Summary ---
Author Organization [facility] Address [address] [place] [address] Phone Care Team Providers Care Diving Fisher Name Role Phone Roslyn Moss MD Primary Care Provider Encounter Details Date Type Department Care Team (Late st Contact Info) Description 01/05/2012 Documentation [facility] [place] [address] [place] [address] Family Medicine, Physician [address] [place] [address] Social History Tobacco Use Types Packs/Day Years [...] on filedocumented in this encounter Care Teams Diving Fisher Relationship Specialty Start Date End Date Roslyn Moss MD [address] [place] [address] ALISA Bermudez [address] PCP - General 05/11/17 10/19/22 documented as of this encounter
--- OUTSIDE RECORDS SUMMARY | 2024-12-09 19:04 | XMS_ITS | Encounter Summary ---
Author Organization [facility] Address [address] [place] [address] Phone Care Team Providers Care Rn Admit Name Role Phone Roslyn Moss MD Primary Care Provider Encounter Details Date Type Department Care Team (Late st Contact Info) Description 02/06/2013 Documentation [facility] [place] [address] [place] [address] Family Medicine, Physician [address] [place] [address] Social History Tobacco Use Types Packs/Day Years [...] on filedocumented in this encounter Care Teams Rn Admit Relationship Specialty Start Date End Date Roslyn Moss MD [address] [place] [address] ALISA Bermudez [address] PCP - General 05/11/17 10/19/22 documented as of this encounter
--- OUTSIDE RECORDS SUMMARY | 2024-12-09 19:04 | XMS_ITS | Encounter Summary ---
Author Organization [facility] Address [address] [place] [address] Phone Care Team Providers Care Heel Gouger Name Role Phone Roslyn Moss MD Primary Care Provider [phone] Encounter Details Date Type Department Care Team (Late st Contact Info) Description 12/29/2013 Documentation [facility] [place] [address] [place], [place] [id number] Family Medicine, Physician [address] [place] [address] Social History Tobacco Use Types Packs/Day Years [...] on filedocumented in this encounter Care Teams Heel Gouger Relationship Specialty Start Date End Date Roslyn Moss MD [address] [place] [address] ALISA Bermudez [address] PCP - General 05/11/17 10/19/22 documented as of this encounter
--- OUTSIDE RECORDS SUMMARY | 2024-12-09 19:04 | XMS_ITS | Encounter Summary ---
Author Organization [facility] Address [address] [place] [address] Phone Care Team Providers Care Visual Merchandising Manager Name Role Phone Roslyn Moss MD Primary Care Provider [phone] Encounter Details Date Type Department Care Team (Late st Contact Info) Description 04/12/2016 Documentation [facility] [place] [address] [place], [place] [id number] Family Medicine, Physician [address] [place] [address] Social History Tobacco Use Types Packs/Day Years [...] on filedocumented in this encounter Care Teams Visual Merchandising Manager Relationship Specialty Start Date End Date Roslyn Moss MD [address] [place] [address] ALISA Bermudez [address] PCP - General 05/11/17 10/19/22 documented as of this encounter
--- OUTSIDE RECORDS SUMMARY | 2024-12-09 19:04 | XMS_ITS | Encounter Summary ---
Author Organization [facility] Address [address] [place] [address] Phone Care Team Providers Care Vinyl Top Installer Name Role Phone Roslyn Moss MD Primary Care Provider [phone] Encounter Details Date Type Department Care Team (Late st Contact Info) Description 10/12/2014 [place]ation [facility] [place] [address] [place], [place] [phone] Family Medicine, Physician [address] [place] [address] Social History Tobacco Use Types Packs/Day Years [...] on filedocumented in this encounter Care Teams Vinyl Top Installer Relationship Specialty Start Date End Date Roslyn Moss MD [address] [place] [address] ALISA Bermudez [address] PCP - General 05/11/17 10/19/22 documented as of this encounter
--- OUTSIDE RECORDS SUMMARY | 2024-12-09 19:04 | XMS_ITS | Encounter Summary ---
Author Organization [facility] Address [address] [place] [address] Phone Care Team Providers Care Trash Collector Supervisor Name Role Phone Roslyn Moss MD Primary Care Provider [phone] Encounter Details Date Type Department Care Team (Late st Contact Info) Description 10/14/2014 Documentation [facility] [place] Medicine [address] [place], [place] [phone] Family Medicine, Physician [address] [place] [address] Social History Tobacco Use Types Packs/Day Years [...] on filedocumented in this encounter Care Teams Trash Collector Supervisor Relationship Specialty Start Date End Date Roslyn Moss MD [address] [place] [address] ALISA Bermudez [address] PCP - General 05/11/17 10/19/22 documented as of this encounter
--- OUTSIDE RECORDS SUMMARY | 2024-12-09 19:04 | XMS_ITS | Encounter Summary ---
Author Organization [facility] Address [address] [place] [address] Phone Care Team Providers Care Captain'S Assistant Name Role Phone Roslyn Moss MD Primary Care Provider [phone] Encounter Details Date Type Department Care Team (Late st Contact Info) Description 11/22/2016 Documentation [facility] [place] [address] [place], [place] [phone] Family Medicine, Physician [address] [place] [address] Social History Tobacco Use Types Packs/Day Years [...] on filedocumented in this encounter Care Teams Captain'S Assistant Relationship Specialty Start Date End Date Roslyn Moss MD [address] [place] [address] ALISA Bermudez [address] PCP - General 05/11/17 10/19/22 documented as of this encounter
--- OUTSIDE RECORDS SUMMARY | 2024-12-09 19:04 | XMS_ITS | Encounter Summary ---
Author Organization [facility] Address [address] [place] [address] Phone Care Team Providers Care Plaster Whittler Name Role Phone Roslyn Moss MD Primary Care Provider [phone] Encounter Details Date Type Department Care Team (Late st Contact Info) Description 10/18/2012 [place]ation [facility] [place] [address] [place], [place] [phone] Family Medicine, Physician [address] [place] [address] Social History Tobacco Use Types Packs/Day Years [...] on filedocumented in this encounter Care Teams Plaster Whittler Relationship Specialty Start Date End Date Roslyn Moss MD [address] [place] [address] ALISA Bermudez [address] PCP - General 05/11/17 10/19/22 documented as of this encounter
--- OUTSIDE RECORDS SUMMARY | 2024-12-09 19:04 | XMS_ITS | Encounter Summary ---
Author Organization [facility] Address [address] [place] [address] Phone Care Team Providers Care Boat Builder Name Role Phone Roslyn Moss MD Primary Care Provider [phone] Encounter Details Date Type Department Care Team (Late st Contact Info) Description 09/25/2016 Documentation [facility] [place] [address] [place], [place] [phone] Family Medicine, Physician [address] [place] [address] Social History Tobacco Use Types Packs/Day Years [...] on filedocumented in this encounter Care Teams Boat Builder Relationship Specialty Start Date End Date Roslyn Moss MD [address] [place] [address] ALISA Bermudez [address] PCP - General 05/11/17 10/19/22 documented as of this encounter
--- OUTSIDE RECORDS SUMMARY | 2024-12-09 19:04 | XMS_ITS | Encounter Summary ---
Author Organization [facility] Address [address] [place] [address] Phone Care Team Providers Care Pastor Name Role Phone Roslyn Moss MD Primary Care Provider [phone] Encounter Details Date Type Department Care Team (Late st Contact Info) Description 02/18/2010 Documentation [facility] [place] [address] [place] [address] Family Medicine, Physician [address] [place] [address] Social History Tobacco Use Types Packs/Day Years [...] on filedocumented in this encounter Care Teams Pastor Relationship Specialty Start Date End Date Roslyn Moss MD [address] [place] [address] ALISA Bermudez [address] PCP - General 05/11/17 10/19/22 documented as of this encounter
--- OUTSIDE RECORDS SUMMARY | 2024-12-09 19:04 | XMS_ITS | Encounter Summary ---
Author Organization [facility] Address [address] [place] [address] Phone Care Team Providers Care Hoop Punch Operator Helper Name Role Phone Roslyn Moss MD Primary Care Provider [phone] Encounter Details Date Type Department Care Team (Late st Contact Info) Description 02/06/2013 Documentation [facility] [place] Family Medicine [address] [place] [address] Family Medicine, Physician [address] [place] [address] Social History Tobacco Use Types Packs/Day Years [...] on filedocumented in this encounter Care Teams Hoop Punch Operator Helper Relationship Specialty Start Date End Date Roslyn Moss MD [address] [place] [address] ALISA Bermudez [address] PCP - General 05/11/17 10/19/22 documented as of this encounter
--- OUTSIDE RECORDS SUMMARY | 2024-12-09 19:04 | XMS_ITS | Encounter Summary ---
Author Organization [facility] Address [address] [place] [address] Phone Care Team Providers Care Orthopedically Impaired Teacher Name Role Phone Roslyn Moss MD Primary Care Provider [phone] Encounter Details Date Type Department Care Team (Late st Contact Info) Description 12/04/2012 Document[place] [facility] [place] [address] [place] [address] Family Medicine, Physician [address] [place] [address] Social History Tobacco Use Types Packs/Day Years [...] on filedocumented in this encounter Care Teams Orthopedically Impaired Teacher Relationship Specialty Start Date End Date Roslyn Moss MD [address] [place] [address] ALISA Bermudez [address] PCP - General 05/11/17 10/19/22 documented as of this encounter
--- OUTSIDE RECORDS SUMMARY | 2024-12-09 19:04 | XMS_ITS | Encounter Summary ---
Author Organization [facility] Address [address] [place] [address] Phone Care Team Providers Care Comber Setter Name Role Phone Roslyn Moss MD Primary Care Provider [phone] Encounter Details Date Type Department Care Team (Late st Contact Info) Description 12/29/2013 Documentation [facility] [place] [address] [place], [place] [phone] Family Medicine, Physician [address] [place] [address] Social History Tobacco Use Types Packs/Day Years [...] on filedocumented in this encounter Care Teams Comber Setter Relationship Specialty Start Date End Date Roslyn Moss MD [address] [place] [address] ALISA Bermudez [address] PCP - General 05/11/17 10/19/22 documented as of this encounter
== END 2024-12-09 16:24 | disposition home or self-care (01) ==
LOC: HO.HMCH 15:45
DX: R00.2 Palpitations (principal); N93.0 Postcoital and contact bleeding; G47.10 Hypersomnia, unspecified

== ENCOUNTER → 2024-12-09 15:45 | Outpatient (BNVA) | payer OTHER, SELFPAY | DX: R00.2 Palpitations (principal); N93.0 Postcoital and contact bleeding; G47.10 Hypersomnia, unspecified | CPT/HCPCS: 99212 ==

== ENCOUNTER 2025-04-22 12:00 | Outpatient (AMB) | payer OTHER, SELFPAY ==
--- OUTSIDE RECORDS SUMMARY | 2025-04-22 12:42 | XMS_ITS | Encounter Summary ---
Author Organization [facility] Address [address] [place] [address] Phone Care Team Providers Care Field Case Manager Name Role Phone Roslyn Moss MD Primary Care Provider [phone] Encounter Details Date Type Department Care Team (Late st Contact Info) Description 06/13/2017 Conversion Encounter [facility] [place] [address] [place] [address] Social History Tobacco Use Types Packs/Day Years [...] on filedocumented in this encounter Care Teams Field Case Manager Relationship Specialty Start Date End Date Roslyn Moss MD [address] [place] [address] PCP - General 05/11/17 10/19/22 documented as of this encounter
[2025-04-22 12:51] VITALS: BP 124/58; PULSE 75; TEMP 36.9; O2SAT 98; BMI 31.8
--- NOTE | 2025-04-22 12:51 | AM.OFFWIN_ITS ---
Intake Vital Signs 04/22/25 12:51 Height 5 ft 4 in Weight 185 lb 2 oz BMI 31.8 BP 124/58 L Blood Pressure Location Rt brachial Position Sitting Pulse 75 Pulse Source Pulse Oximeter Temp 98.5 F Temp Source Oral Pulse Oximetry (%) 98 Oxygen Delivery Method Room Air Intake Visit Reasons: EP ? ear infection on LT side Patient Tobacco Use Status: Never used Tobacco Assisted Living Nursing Director Required: No Is last menstrual period known: Yes Last menstrual period: 04/08/25 Post menopausal: No Patient : No Allergies No Known Allergies Allergy (Verified 04/22/25 12:58) Medication List - Last Reconciled 04/22/25 by Trinity Burnett MD cholecalciferol (vitamin D3) 25 mcg PO DAILY Do you need a note to return to daycare/school/sports/work: No HPI EP ? ear infection on LT side HPI Details History - The patient is a 24-year-old female pr esenting with ear pain and swelling. - The issue began approximately one to t wo days ago. - The patient reports the sensation of s welling from inside the ear. - No associated discharge has been noted . - Describes the pain as a constant sensa tion. - Reports itching in both ears persistin g for over a year. - Guidance was previously given by her [facility] physician to apply Vaseline in the ears as no infection was visible then. - The itching is primarily in the ear ca nal. - The patient has a history of using Q-t ips and scratching with fingers to reach the itch. - Denied symptoms include sore throat, f ever, chills, nausea, and vomiting. Problem List - Ear swelling - External ear canal infection Patient Instructions - Avoid using Q-tips and fingers inside the ear. - Contact the provider if symptoms do no t improve or worsen. - use the prescribed ear drops as per luis gil Review of Systems - General: No fever no chills - Neurological: No headaches no dizziness - Ear nose throat: No sore throat no hearing difficulty no ear pain - Cardiovascular: No syncope, no chest pain, no palpitations - Gastrointestinal: No nausea vomiting or diarrhea Physical Exam General: No acute distress HEENT: Ear canal swollen, pain with triagus pressure Neck: Supple Respiratory system: Able to talk in full sentences Gastrointestinal: No pain Extremities: No new findings CANVAS CUTTER MACHINE: Alert awake oriented x3 Skin: Normal turgor PFSH Medical History Acne Family History Mother No problems noted. Father Sleep apnea Brother No problems noted. Sister No problems noted. Social History Housing: Apartment Alcohol intake: current Patient Tobacco Use Status: Never used Tobacco Tobacco use type: Cigarette e-Cigarette/Vaping Use: Former Use Second Hand Smoke Exposure: No Substance Use Type: Marijuana Patient : No service: No Current occupational status: employed Current occupation: left hand Sexual orientation: Straight/Heterosexual Gender identity: Female Cognitive needs: No Hearing needs: No Vision needs: Yes Female Reproductive History Menstrual Age of Menarche: 12 Date of last menstrual period: 04/08/25 Physical Exam Vital Signs: Last Vital Signs Temp 98.5 F 04/22/25 12:51 Pulse 75 04/22/25 12:51 BP 124/58 L 04/22/25 12:51 Pulse Ox 98 04/22/25 12:51 Oxygen Delivery Method Room Air 04/22/25 12:51 BMI result Body Mass Index 31.8 Assessment & Plan Assessment & Plan (1) Otitis externa, left: Code(s): H60.92 - Unspecified otitis externa, left ear Qualifiers: Otitis externa type: unspecified type Chronicity: acute Qualified Code(s): H60.502 - Unspecified acute noninfective otitis externa, left ear Plan History - The patient is a 24-year-old female presenting with ear pain and swelling. - The issue began approximately one to two days ago. - The patient reports the sensation of swelling from inside the ear. - No associated discharge has been noted. - Describes the pain as a constant sensation. - Reports itching in both ears persisting for over a year. - Guidance was previously given by her primary care physician to apply Vaseline in the ears as no infection was visible then. - The itching is primarily in the ear canal. - The patient has a history of using Q-tips and scratching with fingers to reach the itch. - Denied symptoms include sore throat, fever, chills, nausea, and vomiting. Problem List - Ear swelling - External ear canal infection Patient Instructions - Avoid using Q-tips and fingers inside the ear. - Contact the provider if symptoms do not improve or worsen. - use the prescribed ear drops as per directions Medications: New ciprofloxacin-dexamethasone 0.3-0.1 % 4 drps otic (ears) BID 7.5 mL 2RF 7 days Coding Level of Care Code Est Pt Level 3 (71527) Diagnoses Acute otitis externa of left ear, unspecified type H60.502 Otitis externa type: unspecified type Chronicity: acute
== END 2025-04-22 13:49 | disposition home or self-care (01) ==
PROVIDERS: Visit Provider Internal Medicine
DX: H60.502 Unspecified acute noninfective otitis externa, left ear (principal)

== ENCOUNTER → 2025-04-22 12:00 | Outpatient (BNVA) | payer OTHER, SELFPAY | PROVIDERS: Visit Provider Internal Medicine | DX: H60.502 Unspecified acute noninfective otitis externa, left ear (principal) | CPT/HCPCS: 99212 ==

== ENCOUNTER 2025-07-23 14:54 | Outpatient (AMB) | payer OTHER, SELFPAY ==
[2025-07-23 15:04] VITALS: BP 128/62; PULSE 92; RESP 18; TEMP 36.3; O2SAT 98; BMI 31.1
--- NOTE | 2025-07-23 15:04 | A.OFFPC_ITS ---
Vital Signs 07/23/25 15:04 Height 5 ft 4 in Weight 181 lb BMI 31.1 BP 128/62 Blood Pressure Location Lt brachial Position Sitting Respiration 18 Pulse 92 Pulse Source Pulse Oximeter Temp 97.3 F Temp Source Temporal Artery Scan Pulse Oximetry (%) 98 Oxygen Delivery Method Room Air Intake Visit Reasons: annual exam Home Restoration Service Cleaner Required: No Accompanied by: Self / Same As Patient Allergies virkon Allergy (Mild, Uncoded 07/23/25 15:10) Rash Medication List - Last Reconciled 07/23/25 by Anita Kingston PA-C cholecalciferol (vitamin D3) 25 mcg PO DAILY Tobacco use date assessed: 07/23/25 Dental Screening Dental Screen Date: 07/23/25 Did you have a dental visit in the last 12 months?: Yes Did you have a dental problem in the last 6 months where you did not have access to dental care?: No Was dental information given to patient?: Patient has dentist HPI annual exam HPI Details 25-year-old female with no relevant past medical history last seen 11/2024 coming in for annual exam. Presenting with ear discomfort and skin concerns. Persistent itching in the ears, especially the left, with a sensation of swelling. No new allergies or medications. Denies smoking. Hidradenitis suppurativa Diagnosed in childhood, untreated. Experiences recurrent boils and cysts in the groin, worsened by certain soaps. Advised on hygiene to prevent infection. Due for routine blood work. Previous gynecological tests, including STD and thyroid labs. pap smear: 11/2024 eye doctor: [facility] vaccines: Tdap UTD declined flu today PFSH Medical History Acne Family History Mother No problems noted. Father Sleep apnea Brother No problems noted. Sister No problems noted. Social History Housing: Apartment Alcohol intake: current Patient Tobacco Use Status: Never used Tobacco Tobacco use type: Cigarette e-Cigarette/Vaping Use: Former Use Second Hand Smoke Exposure: No Substance Use Type: Marijuana service: No Current occupational status: employed Current occupation: left hand Sexual orientation: Straight/Heterosexual Gender identity: Female Cognitive needs: No Hearing needs: No Vision needs: Yes Female Reproductive History Menstrual Age of Menarche: 12 Questionnaire PHQ-9 Over the last 2 weeks, how often have you been bothered by any of the following problems? 1. Little interest or pleasure in doing things: not at all 2. Feeling down, depressed, or hopeless: not at all 3. Trouble falling or staying asleep, or sleeping too much: not at all 4. Feeling tired or having little energy: not at all 5. Poor appetite or overeating: not at all 6. Feeling bad about yourself - or that you are a failure or have let yourself or your family down: not at all 7. Trouble concentrating on things, such as reading the newspaper or watching television: not at all 8. Moving or speaking so slowly that other people could have noticed. Or the opposite - being so fidgety or restless that you have been moving around a lot more than usual: not at all 9. Thoughts that you would be better off or of hurting yourself in some way: not at all Total score: 0 Depression Screening Interpretation: Negative Depression Screening Done: Yes Source: Developed by Drs. Sohail Cunningham, Jennie Armendariz, Juice Blanco and colleagues, with an educational gopal from [employer]. Thrive Questionnaire Date Thrive assessed: 11/26/24 I am a: Patient What is your living situation today?: I choose not to answer this question Within the past 12 months, did the food you bought not last and you didn't have the money to get more?: I choose not to answer this question Within the past 12 months, did you worry whether your food would run out before you got money to buy more?: I choose not to answer this question Do you have trouble paying for medicines?: I choose not to answer this question Do you have trouble getting transportation to medical appointments?: I choose not to answer this question Do you have trouble paying your heating and electricity bill?: I choose not to answer this question Do you have trouble taking care of your child, family member or friend?: I choose not to answer this question Do you have trouble with day-to-day activities such as bathing, preparing meals, shopping, managing finances, etc.?: I choose not to answer this question Are you currently unemployed and looking for a job?: I choose not to answer this question Are you interested in more education?: I choose not to answer this question Please select the resources that you would like help with: None Currently or been in a relationship where the following occur: I choose not to answer THRIVE Score: 0 AUDIT C Alcohol Use Questionnaire (AUDIT-C) 1. How often do you have a drink containing alcohol?: Never Total Score: 0 MICHELLE-7 AMB Questionnaire MICHELLE-7 Date MICHELLE - 7 assessed: 10/09/24 Feeling nervous, anxious, or on edge: 0 = Not at all Not being able to stop or control worryin = Not at all Worrying too much about different things: 0 = Not at all Trouble relaxin = Not at all Being so restless that it is hard to sit still: 0 = Not at all Becoming easily annoyed or irritable: 0 = Not at all Feeling afraid as if something awful might happen: 0 = Not at all Total MICHELLE-7 score (0-4 normal; 5-9 mild; 10-14 moderate; 15-21 severe): 0 Source: Developed by Drs. Sohail Cunningham, Jennie Armendariz, Juice Blanco and colleagues, with an educational gopal from [employer]. Review of Systems Const Denies body aches, Denies fatigue, Denies fever(s), Denies frequent falls, Denies headache(s) and Denies weakness Eyes Reports no additional complaints and Denies change in vision ENT Denies dysphagia, Denies dizziness, Denies facial pain, Denies headache(s), Denies nasal congestion and Denies odynophagia Card Denies chest pain, Denies syncope, Denies irregular heart rhythm, Denies leg edema, Denies lightheadedness and Denies dyspnea Resp Denies cough and Denies dyspnea GI Denies abdominal pain, Denies constipation, Denies dysphagia, Denies dyspepsia, Denies diarrhea, Denies nausea, Denies odynophagia and Denies vomiting Denies urinary frequency, Denies dysuria, Denies urinary hesitancy and Denies urinary urgency Musc Denies back pain and Denies myalgias Skin/Breast Reports as per HPI Neuro Denies dizziness, Denies syncope, Denies frequent falls, Denies headache(s) and Denies weakness Psych Reports no additional complaints Endo Denies fatigue Physical exam (Primary Care) Vital Signs: Last Vital Signs Temp 97.3 F 07/23/25 15:04 Pulse 92 07/23/25 15:04 Resp 18 07/23/25 15:04 BP 128/62 07/23/25 15:04 Pulse Ox 98 07/23/25 15:04 Oxygen Delivery Method Room Air 07/23/25 15:04 BMI result Body Mass Index 31.1 Tobacco/Smoking Status: Tobacco use Status Tobacco use date assessed 07/23/25 07/23/25 15:08 Patient Tobacco Use Status Never used Tobacco 07/23/25 15:05 Tobacco use type Cigarette 07/23/25 15:05 e-Cigarette/Vaping Use Former Use 07/23/25 15:05 PHQ-9: PHQ-9 Score PHQ-9: Total score 0 07/23/25 15:13 Depression Screening Interpretation: Negative Thrive Assessment: Date of Thrive Assessment Date Thrive assessed 11/26/24 07/23/25 15:05 Currently or been in a relationship where the following occur: I choose not to answer Const General: cooperative, healthy appearing, comfortable and no acute distress Orientation/consciousness: patient oriented x3 HENMT Head: Yes normocephalic Ears: hearing grossly normal bilaterally, external ears normal, TM's normal bilaterally and EAC's normal General nose exam: Normal external nose present Face and sinus: Yes normal facial exam and Yes sinuses nontender Mouth: Normal oral and palatal mucosa present and tongue normal Throat: Yes posterior oropharynx normal Eyes General: appearance normal, both eyes and all related structures Conjunctivae: conjunctivae normal Pupils: Equal, round and reactive pupils present EOM: EOMs intact bilaterally and No Nystagmus present Neck Neck: Yes normal visual inspection, Yes full ROM and Yes no lymphadenopathy Chest Chest palpation & inspection: normal inspection of the chest Resp Effort & Inspection: normal respiratory effort Auscultation: clear to auscultation bilaterally, no crackles, no rales, no rhonchi, no wheezes and breath sounds present Cardio Rate: regular rate Rhythm: regular rhythm Peripheral pulses: radial pulses present and dorsalis pedis present GI Inspection: Yes normal to inspection and No Abdominal wall edema Palpation (GI): Soft to palpation, not firm and nontender Auscultation: normal bowel sounds Rectal Exam - Female: deferred General: Yes no CVA tenderness Back/Spine/Pelvis Back: no CVA tenderness Skin General skin exam: no rashes or lesions noted Neuro General: patient oriented x3 Cranial nerves: Yes Equal, round and reactive pupils present, Yes Midline tongue present, Yes Ability to bilaterally elevate shoulders present and No Nystagmus present Gait exam (Neuro): Normal gait present Extrem General: Yes normal to inspection, Yes full ROM, No no pedal edema and No edema Psych Speech and movement: Normal speech and movement present Affect: normal affect Insight: Good insight present (Psych) Judgement: Good judgement present (Psych) Coding Level of Care Code Est Pt Prev Care 18-39y(51539) Diagnoses Annual physical exam Z00.00 Cervical cancer screening Z12.4 Hidradenitis suppurativa L73.2 Ear itch L29.9 Obesity (BMI 30.0-34.9) E66.9 Assessment & Plan Assessment & Plan (1) Annual physical exam: Code(s): Z00.00 - Encounter for general adult medical examination without abnormal findings Category: Medical Plan: Patient is up-to-date on all recommended routine screenings and vaccinations for her age. She declines a flu shot today in the office. I did ordered for updated blood work to be completed prior to next visit. Healthy diet and regular exercise is encouraged. (2) Cervical cancer screening: Comment: 2 pap= neg. Code(s): Z12.4 - Encounter for screening for malignant neoplasm of cervix Category: Medical Plan: 11/25 with gynecology negative and continue to follow up with their office. (3) Hidradenitis suppurativa: Code(s): L73.2 - Hidradenitis suppurativa Category: Medical Plan: Advised on rigorous hygiene, use of gentle cleansers, and weight management to manage symptoms. Referral to production control supervisor for further evaluation at patient request. She may use [id number]-mcl-dwvwwac cleansers such as Hibiclens 3-4 times per week (4) Ear itch: Code(s): L29.9 - Pruritus, unspecified Category: Medical Plan: For ear itching there was no evidence of infection or otitis externa on exam today. There is dry skin in the ear canal and Dermotic drops were sent to pharmacy for her. She is requesting referral to ear nose and throat which was placed today (5) Obesity (BMI 30.0-34.9): Code(s): E66.9 - Obesity, unspecified Category: Medical Plan: Healthy diet and regular exercise is encouraged. Plan I discussed with the patient the management of her otitis externa, including the use of steroid ear drops and the importance of avoiding Q-tips. We also talked about the management of hidradenitis suppurativa through hygiene and weight management, and I provided a referral to a production control supervisor. This note was constructed using voice recognition software. While every effort has been made to ensure accuracy and plane runner, still areas may have been included sometimes these areas may affect the content or meeting of the given symptoms. Total time spent caring for the patient today was 30 minutes. This includes time spent before the visit reviewing the chart, time spent during the visit, and time spent after the visit and documentation. Patient was informed and verbally consented to the use of an ambient scribe for clinic note documentation during this visit. Orders: Orders Complete Blood Count Auto Diff Today R31.29 - Other microscopic hematuria, Z13.0 - Encounter for screening for diseases of the blood and blood-forming organs and certain disorders involving the immune mechanism Comprehensive Met. Panel Today Z13.1 - Encounter for screening for diabetes mellitus Vitamin D 25-OH Total Today Z13.21 - Encounter for screening for nutritional disorder Free T4 (Free Thyroxine) Today Z13.29 - Encounter for screening for other suspected endocrine disorder Vitamin B12 and Folate Today Z13.21 - Encounter for screening for nutritional disorder Referrals Ear/Nose/Throat Referral L29.9 - Pruritus, unspecified Dermatology Referral L73.2 - Hidradenitis suppurativa Medications: New loratadine (Allergy Relief (loratadine)) 10 mg PO DAILY 90 tabs 0RF fluocinolone acetonide oil 0.01% (DermOtic Oil) 5 drps otic (ears) BID 20 mL 0RF 7 days Refilled cholecalciferol (vitamin D3) 25 mcg PO DAILY 90 caps 3RF
--- OUTSIDE RECORDS SUMMARY | 2025-07-23 18:46 | XMS_ITS | Clinical Summary ---
Author Organization [facility] Address [address] [place] [id number] Phone Care Team Providers Care Senior Materials Analyst Name Role Phone Unavailable Primary Care Provider [...] of Autism, No family history of Sudden /CA under age 55, No family history of [...] 86 03/08/2021 4:37 PM EDT Temperature 36.1 C (96.9 F) 03/08/2021 4:37 PM EDT Respiratory Rate 20 08/19/2019 2:50 PM EST Oxygen Saturation - - Inhaled Oxygen Concentration - - Weight 62.2 kg (137 lb 3.2 oz) 03/08/2021 4:37 P M EDT Height 163 cm (5' 4.17 ) 03/01/2021 3:12 PM EDT Body Mass Index 23.42 03/01/2021 3:12 PM EDT Plan of Treatment Health Maintenance Due Date Last Done Comments Influenza Vaccines (#1) 2025 12/22/19 21, 05/28/2017, 09/22/2016, Additional history exists COVID-19 Vaccine (2024-2 6 season) 2025 DTaP,Tdap,and Td Vaccines (8 - Td or [...] Completed 01/05/2020, 07/04/2019 Procedures * Due to [place] [employer] law, this organization might not be sharing sensitive test results. Procedure Name Priority Date/Time Associated Diagnosis Comments CHLAMYDIA AND GONORRHEA, AMPLIFIED Routine 12/21/2020 9:06 AM EDT Screening examination for bacterial and spirochetal disease from Last 3 Months or Most Recently Relevant to Health Maintenance Results * Due to [place] [employer] law, this organization might not be sharing sensitive test results. * Chlamydia and Gonorrhoea, Amplified (12/21/2020 9:06 AM EDT) Chlamydia Trachomatis, DNA Probe NEGATIVE (NEG) [facility] Comment: No Chlamydia Trachomatis RNA detected in this patient's sample (REFERENCE RANGE/NORMAL VALUE: NOT DETECTED) Note: This test uses independent crop consultant- mediated amplification method to detect rRNA from C. Trachomatis URINE GC AMP PROBE NEGATIVE (NEG) [facility] Comment: No Neisseria Gonorrhoeae RNA detected in this patient's sample (REFERENCE RANGE/NORMAL VALUE: NOT DETECTED) NOTE: This test uses independent crop consultant-mediated amplification method to detect rRNA from N.Gonorrhoeae. [...] without risk of sexual abuse. Consult the [facility] if needed. Contact phone number . Therapeutic failure or success cannot be determined with the Aptima Combo2 assay since nucleic acid may persist following appropriate antimicrobial therapy. The Centers for Disease Control and Prevention (CDC) recommends confirmatory retesting using culture or a different nucleic acid amplification test when positive results occur, if indicated. Testing performed or reported by [facility], a Service of [facility], [address], [place] [address] Bipin Eugene MD, General Assignment Reporter Urine 12/21/2020 9:06 AM EDT 12/21/2020 6:58 PM EDT us Roslyn Moss MD LAB MICROBIOLOGY - GENERAL ORD ERABLES Final Result [facility] from Last 3 Months or Most Recently Relevant to Health Maintenance
--- OUTSIDE RECORDS SUMMARY | 2025-07-23 18:46 | XMS_ITS | Encounter Summary ---
Author Organization [facility] Address [address] [place] [address] Phone Care Team Providers Care Political Advisor Name Role Phone Roslyn Moss MD Primary Care Provider [phone] Encounter Details Date Type Department Care Team (Late st Contact Info) Description 04/12/2016 [place] [facility] [place] [address] [place], [place] [id number] Family Medicine, Physician [address] [place] [address] Social History Tobacco Use Types Packs/Day Years [...] on filedocumented in this encounter Care Teams Political Advisor Relationship Specialty Start Date End Date Roslyn Moss MD [address] [place] [address] [place] [id number] PCP - General 05/11/17 10/19/22 documented as of this encounter
--- OUTSIDE RECORDS SUMMARY | 2025-07-23 18:46 | XMS_ITS | Encounter Summary ---
Author Organization [facility] Address [address] [place] [address] Phone Care Team Providers Care Traffic Signal Repairer Name Role Phone Roslyn Moss MD Primary Care Provider [phone] Encounter Details Date Type Department Care Team (Late st Contact Info) Description 12/29/2013 [place] [facility] [place] [address] [place], [place] [id number] Family Medicine, Physician [address] [place] [address] Social History Tobacco Use Types Packs/Day Years [...] filedocumented in this encounter Care Teams Traffic Signal Repairer Relationship Specialty Start Date End Date Roslyn Moss MD [address] [place] [address] [place] [id number] PCP - General 05/11/17 10/19/22 documented as of this encounter
--- OUTSIDE RECORDS SUMMARY | 2025-07-23 18:46 | XMS_ITS | Encounter Summary ---
Author Organization [facility] Address [address] [place] [address] Phone Care Team Providers Care Creeler Name Role Phone Roslyn Moss MD Primary Care Provider Encounter Details Date Type Department Care Team (Late st Contact Info) Description 04/12/2016 Documentation [facility] [place] [address] [place], [place] [phone] Family Medicine, Physician [address] [place] [address] Social History Tobacco Use Types Packs/Day Years [...] on filedocumented in this encounter Care Teams Creeler Relationship Specialty Start Date End Date Roslyn Moss MD [address] [place] [address] [place] [id number] PCP - General 05/11/17 10/19/22 documented as of this encounter
--- OUTSIDE RECORDS SUMMARY | 2025-07-23 18:46 | XMS_ITS | Encounter Summary ---
Author Organization [facility] Address [address] [place] [address] Phone Care Team Providers Care Sheet Rock Applier Name Role Phone Roslyn Moss MD Primary Care Provider [phone] Encounter Details Date Type Department Care Team (Late st Contact Info) Description 11/22/2016 Documentation [facility] [place] [address] [place], [place] [phone] Family Medicine, Physician [address] [place] [address] Social History Tobacco Use Types Packs/Day Years [...] filedocumented in this encounter Care Teams Sheet Rock Applier Relationship Specialty Start Date End Date Roslyn Moss MD [address] [place] [address] [place] [id number] PCP - General 05/11/17 10/19/22 documented as of this encounter
--- OUTSIDE RECORDS SUMMARY | 2025-07-23 18:46 | XMS_ITS | Encounter Summary ---
Author Organization [facility] Address [address] [place] [address] Phone Care Team Providers Care Off Track Betting Manager Name Role Phone Roslyn Moss MD Primary Care Provider [phone] Encounter Details Date Type Department Care Team (Late st Contact Info) Description 12/04/2012 [place] [facility] [place] [address] [place], [place] [phone] Family Medicine, Physician [address] [place] [address] Social History Tobacco Use Types Packs/Day Years [...] on filedocumented in this encounter Care Teams Off Track Betting Manager Relationship Specialty Start Date End Date Roslyn Moss MD [address] [place] [address] [place] [address] PCP - General 05/11/17 10/19/22 documented as of this encounter
--- OUTSIDE RECORDS SUMMARY | 2025-07-23 18:46 | XMS_ITS | Encounter Summary ---
Author Organization [facility] Address [address] [place] [address] Phone Care Team Providers Care Mold Carrier Name Role Phone Roslyn Moss MD Primary Care Provider [phone] Encounter Details Date Type Department Care Team (Late st Contact Info) Description 02/18/2010 Documentation [facility] [place] [address] [place] [address] Family Medicine, Physician [address] [place] [address] Social History Tobacco Use Types Packs/Day Years [...] on filedocumented in this encounter Care Teams Mold Carrier Relationship Specialty Start Date End Date Roslyn Moss MD [address] [place] [address] [place] [id number] PCP - General 05/11/17 10/19/22 documented as of this encounter
--- OUTSIDE RECORDS SUMMARY | 2025-07-23 18:46 | XMS_ITS | Encounter Summary ---
Author Organization [facility] Address [address] [place] [address] Phone Care Team Providers Care Fly Tier Name Role Phone Roslyn Moss MD Primary Care Provider [phone] Encounter Details Date Type Department Care Team (Late st Contact Info) Description 01/05/2012 Documentation [facility] [place] [address] [place] [address] Family Medicine, Physician [address] [place] [address] Social History Tobacco Use Types Packs/Day Years [...] on filedocumented in this encounter Care Teams Fly Tier Relationship Specialty Start Date End Date Roslyn Moss MD [address] [place] [address] [place] [id number] PCP - General 05/11/17 10/19/22 documented as of this encounter
--- OUTSIDE RECORDS SUMMARY | 2025-07-23 18:46 | XMS_ITS | Encounter Summary ---
Author Organization [facility] Address [address] [place] [address] Phone Care Team Providers Care Shell Mold Bonder Name Role Phone Roslyn Moss MD Primary Care Provider [phone] Encounter Details Date Type Department Care Team (Late st Contact Info) Description 06/05/2013 Documentation [facility] [place] [address] [place], [place] [phone] Family Medicine, Physician [address] [place] [address] Social History Tobacco Use Types Packs/Day Years [...] on filedocumented in this encounter Care Teams Shell Mold Bonder Relationship Specialty Start Date End Date Roslyn Moss MD [address] [place] [address] [place] [id number] PCP - General 05/11/17 10/19/22 documented as of this encounter
--- OUTSIDE RECORDS SUMMARY | 2025-07-23 18:46 | XMS_ITS | Encounter Summary ---
Author Organization [facility] Address [address] [place] [address] Phone Care Team Providers Care Floriculture Teacher Name Role Phone Roslyn Moss MD Primary Care Provider [phone] Encounter Details Date Type Department Care Team (Late st Contact Info) Description 02/06/2013 [place] [facility] [place] [address] [place] [address] Family Medicine, Physician [address] [place] [address] Social History Tobacco Use Types Packs/Day Years [...] on filedocumented in this encounter Care Teams Floriculture Teacher Relationship Specialty Start Date End Date Roslyn Moss MD [address] [place] [address] [place] [address] PCP - General 05/11/17 10/19/22 documented as of this encounter
--- OUTSIDE RECORDS SUMMARY | 2025-07-23 18:46 | XMS_ITS | Encounter Summary ---
Author Organization [facility] Address [address] [place] [address] Phone Care Team Providers Care Plunger Machine Operator Name Role Phone Roslyn Moss MD Primary Care Provider [phone] Encounter Details Date Type Department Care Team (Late st Contact Info) Description 09/25/2016 [place]ation [facility] [place] [address] [place], [place] [id number] Family Medicine, Physician [address] [place] [address] Social History Tobacco Use Types Packs/Day Years [...] on filedocumented in this encounter Care Teams Plunger Machine Operator Relationship Specialty Start Date End Date Roslyn Moss MD [address] [place] [address] ALISA Bermudze [id number] PCP - General 05/11/17 10/19/22 documented as of this encounter
--- OUTSIDE RECORDS SUMMARY | 2025-07-23 18:46 | XMS_ITS | Encounter Summary ---
Author Organization [facility] Address [address] [place] [address] Phone Care Team Providers Care Ampoule Examiner Name Role Phone Roslyn Moss MD Primary Care Provider [phone] Encounter Details Date Type Department Care Team (Late st Contact Info) Description 12/04/[address] [facility] [place] [address] [place], [place] [id number] Family Medicine, Physician [address] [place] [address] Social History Tobacco Use Types Packs/Day Years [...] on filedocumented in this encounter Care Teams Ampoule Examiner Relationship Specialty Start Date End Date Roslyn Moss MD [address] [place] [address] ALISA Bermudez [id number] PCP - General 05/11/17 10/19/22 documented as of this encounter
--- OUTSIDE RECORDS SUMMARY | 2025-07-23 18:46 | XMS_ITS | Encounter Summary ---
Author Organization [facility] Address [address] [place] [address] Phone Care Team Providers Care Satellite Dish Repairer Name Role Phone Roslyn Moss MD Primary Care Provider [phone] Encounter Details Date Type Department Care Team (Late st Contact Info) Description 10/14/2014 Documentation [facility] [place] [address] [place], [place] [id number] Family Medicine, Physician [address] [place] [address] Social History Tobacco Use Types Packs/Day Years [...] on filedocumented in this encounter Care Teams Satellite Dish Repairer Relationship Specialty Start Date End Date Roslyn Moss MD [address] [place] [address] ALISA Bermudez [id number] PCP - General 05/11/17 10/19/22 documented as of this encounter
--- OUTSIDE RECORDS SUMMARY | 2025-07-23 18:46 | XMS_ITS | Encounter Summary ---
Author Organization [facility] Address [address] [place] [address] Phone Care Team Providers Care Web Development Manager Name Role Phone Roslyn Moss MD Primary Care Provider [phone] Encounter Details Date Type Department Care Team (Late st Contact Info) Description 12/04/2012 [place]ation [facility] [place] [address] [place], [place] [phone] Family Medicine, Physician [address] [place] [address] Social History Tobacco Use Types Packs/Day Years [...] on filedocumented in this encounter Care Teams Web Development Manager Relationship Specialty Start Date End Date Roslyn Moss MD [address] [place] [address] ALISA Bermudez [address] PCP - General 05/11/17 10/19/22 documented as of this encounter
--- OUTSIDE RECORDS SUMMARY | 2025-07-23 18:46 | XMS_ITS | Encounter Summary ---
Author Organization [facility] Address [address] [place] [address] Phone Care Team Providers Care Doughnut Icer Machine Name Role Phone Roslyn Moss MD Primary Care Provider [phone] Encounter Details Date Type Department Care Team (Late st Contact Info) Description 04/12/2016 [place] [facility] [place] [address] [place], [place] [phone] Family Medicine, Physician [address] [place] [address] Social History Tobacco Use Types Packs/Day Years [...] on filedocumented in this encounter Care Teams Doughnut Icer Machine Relationship Specialty Start Date End Date Roslyn Moss MD [address] [place] [address] ALISA Bermudez [address] PCP - General 05/11/17 10/19/22 documented as of this encounter
--- OUTSIDE RECORDS SUMMARY | 2025-07-23 18:46 | XMS_ITS | Encounter Summary ---
Author Organization [facility] Address [address] [place] [address] Phone Care Team Providers Care Sleeping Car Porter Name Role Phone Roslyn Moss MD Primary Care Provider [phone] Encounter Details Date Type Department Care Team (Late st Contact Info) Description 02/06/2013 Documentation [facility] [place] [address] [place] [address] Family Medicine, Physician [address] [place] [address] Social History Tobacco Use Types Packs/Day Years [...] on filedocumented in this encounter Care Teams Sleeping Car Porter Relationship Specialty Start Date End Date Roslyn Moss MD [address] [place] [address] ALISA Bermudez [address] PCP - General 05/11/17 10/19/22 documented as of this encounter
--- OUTSIDE RECORDS SUMMARY | 2025-07-23 18:46 | XMS_ITS | Encounter Summary ---
Author Organization [facility] Address [address] [place] [address] Phone Care Team Providers Care Cargo Operations Agent Name Role Phone Roslyn Moss MD Primary Care Provider Encounter Details Date Type Department Care Team (Late st Contact Info) Description 10/18/2012 Documentation [facility] [place] [address] [place], [place] [phone] Family Medicine, Physician [address] [place] [address] Social History Tobacco Use Types Packs/Day Years [...] on filedocumented in this encounter Care Teams Cargo Operations Agent Relationship Specialty Start Date End Date Roslyn Moss MD [address] [place] [address] ALISA Bermudez [address] PCP - General 05/11/17 10/19/22 documented as of this encounter
--- OUTSIDE RECORDS SUMMARY | 2025-07-23 18:46 | XMS_ITS | Encounter Summary ---
Author Organization [facility] Address [address] [place] [phone] Phone Care Team Providers Care Tire Repair Mechanic Name Role Phone Roslyn Moss MD Primary Care Provider [phone] Encounter Details Date Type Department Care Team (Late st Contact Info) Description 06/13/2017 Conversion Encounter [facility] [place] [address] [place] [address] Social History Tobacco Use Types Packs/Day Years [...] on filedocumented in this encounter Care Teams Tire Repair Mechanic Relationship Specialty Start Date End Date Roslyn Moss MD [address] [place] [address] PCP - General 05/11/17 10/19/22 documented as of this encounter
--- OUTSIDE RECORDS SUMMARY | 2025-07-23 18:46 | XMS_ITS | Encounter Summary ---
Author Organization [facility] Address [address] [place] [address] Phone Care Team Providers Care Car Mechanic Name Role Phone Roslyn Moss MD Primary Care Provider [phone] Encounter Details Date Type Department Care Team (Late st Contact Info) Description 10/14/2014 Documentation [facility] [place] [address] [place], [place] [phone] Family Medicine, Physician [address] [place] [address] Social History Tobacco Use Types Packs/Day Years [...] on filedocumented in this encounter Care Teams Car Mechanic Relationship Specialty Start Date End Date Roslyn Moss MD [address] [place] [address] ALISA Bermudez [address] PCP - General 05/11/17 10/19/22 documented as of this encounter
--- OUTSIDE RECORDS SUMMARY | 2025-07-23 18:46 | XMS_ITS | Encounter Summary ---
Author Organization [facility] Address [address] [place] [address] Phone Care Team Providers Care Surgical Orderly Name Role Phone Roslyn Moss MD Primary Care Provider [phone] Encounter Details Date Type Department Care Team (Late st Contact Info) Description 12/29/2013 Documentation [facility] [place] [address] [place], [place] [phone] Family Medicine, Physician [address] [place] [address] Social History Tobacco Use Types Packs/Day Years [...] filedocumented in this encounter Care Teams Surgical Orderly Relationship Specialty Start Date End Date Roslyn Moss MD [address] [place] [address] ALISA Bermudez [address] PCP - General 05/11/17 10/19/22 documented as of this encounter
--- OUTSIDE RECORDS SUMMARY | 2025-07-23 18:46 | XMS_ITS | Encounter Summary ---
Author Organization [facility] Address [address] [place] [address] Phone Care Team Providers Care Logistics And Planning Manager Name Role Phone Roslyn Moss MD Primary Care Provider [phone] Encounter Details Date Type Department Care Team (Late st Contact Info) Description 10/14/2014 Documentation [facility] [place] [address] [place], [place] [phone] Family Medicine, Physician [address] [place] [address] Social History Tobacco Use Types Packs/Day Years [...] on filedocumented in this encounter Care Teams Logistics And Planning Manager Relationship Specialty Start Date End Date Roslyn Moss MD [address] [place] [address] ALISA Bermudez [address] PCP - General 05/11/17 10/19/22 documented as of this encounter
--- OUTSIDE RECORDS SUMMARY | 2025-07-23 18:46 | XMS_ITS | Encounter Summary ---
Author Organization [facility] Address [address] [place] [address] Phone Care Team Providers Care Trade Show Specialist Name Role Phone Roslyn Moss MD Primary Care Provider [phone] Encounter Details Date Type Department Care Team (Late st Contact Info) Description 10/12/2014 Documentation [facility] [place] [address] [place], [place] [phone] Family Medicine, Physician [address] [place] [address] Social History Tobacco Use Types Packs/Day Years [...] on filedocumented in this encounter Care Teams Trade Show Specialist Relationship Specialty Start Date End Date Roslyn Moss MD [address] [place] [address] ALISA Bermudez [address] PCP - General 05/11/17 10/19/22 documented as of this encounter
== END 2025-07-23 15:34 | disposition home or self-care (01) ==
LOC: HO.HMCH 14:55
DX: Z00.00 Encounter for general adult medical examination without abnormal findings (principal); L73.2 Hidradenitis suppurativa; E66.9 Obesity, unspecified; Z68.31 Body mass index [BMI] 31.0-31.9, adult; L29.9 Pruritus, unspecified

== ENCOUNTER → 2025-07-23 14:54 | Outpatient (BNVA) | payer OTHER, SELFPAY | DX: Z00.00 Encounter for general adult medical examination without abnormal findings (principal); L73.2 Hidradenitis suppurativa; L29.9 Pruritus, unspecified; E66.9 Obesity, unspecified; R31.29 Other microscopic hematuria; Z68.31 Body mass index [BMI] 31.0-31.9, adult | CPT/HCPCS: 99395 ==

== ENCOUNTER 2025-09-30 14:03 | Outpatient (REF) | payer OTHER, SELFPAY ==
[2025-09-30 16:30] LABS: Appearance Urine Clear; Glucose Urine UA Negative (Negative); PH 5.5 (5.0-9.0); Specific Gravity - Urine 1.025 (1.005-1.025); UMIC TRIGGER UACC YES
[2025-09-30 16:31] LABS: Resp Syncy Virus RNA Qual PCR NEGATIVE (Negative); SARS COV2 PCR INHOUSE NEGATIVE (Negative)
== END 2025-09-30 14:04 | disposition home or self-care (01) ==
LOC: HO.LAB 14:03
PROVIDERS: Visit Provider Student in an Organized Health Care Education/Training Program
DX: R35.0 Frequency of micturition (principal); R05.9 Cough, unspecified; N89.8 Other specified noninflammatory disorders of vagina; R73.03 Prediabetes; R06.02 Shortness of breath; Z87.891 Personal history of nicotine dependence
CPT/HCPCS: 81001; 81003; 84702; 87637

== ENCOUNTER 2025-09-30 14:49 | Outpatient (REF) | payer OTHER, SELFPAY ==
[2025-10-01 00:22] LABS: Bacterial Vaginosis PCR NEGATIVE (Negative); Candida Group PCR NOT DETECTED (Not Detect); Candida glab krusei PCR NOT DETECTED (Not Detect); Trichomonas vaginalis PCR NOT DETECTED (Not Detect)
== END 2025-09-30 14:50 | disposition home or self-care (01) ==
LOC: HO.LNP 14:49
PROVIDERS: Visit Provider Student in an Organized Health Care Education/Training Program
DX: N89.8 Other specified noninflammatory disorders of vagina (principal); R05.9 Cough, unspecified; Z34.90 Encounter for supervision of normal pregnancy, unspecified, unspecified trimester
CPT/HCPCS: 81515